=== PATIENT | female | born 1985 | race African-American/Black ===

== ENCOUNTER 2022-09-29 18:58 | Emergency (ER) | payer MEDICAID, SELFPAY ==
[2022-09-29 18:58] VITALS: BP 137/83; PULSE 91; RESP 18; TEMP 36.3; O2SAT 100; BMI 28.8
--- NOTE | 2022-09-29 19:21 | EDS_ITS ---
HPI HPI - URI History of Present Illness Chief Complaint: Cold Sx Narrative Narrative: 36-year-old female presenting with body aches, chills, headache, generalized malaise since . She reports that she was at a play and after that she developed the symptoms. She states that even though she was ill she was doing care today. She took Dimetapp to control her cough. She has not tried Tylenol and ibuprofen. Denies chest pain or shortness of breath. No nausea or vomiting. Patient on control not concern for . ROS ROS ED Constitutional Constitutional ED: Reports chills and fever(s); Denies sweats Eyes Eyes: Denies blurry vision or change in vision ENT ENT ED: Denies ear pain or sore throat Cardiovascular Cardiovascular: Denies chest pain, palpitations or racing heartbeat Respiratory/Chest Respiratory/Chest: Reports cough; Denies dyspnea or sputum Gastrointestinal Gastrointestinal: Denies abdominal pain, constipation, diarrhea, nausea or vomiting Genitourinary Genitourinary ED: Denies dysuria, hematuria or urinary frequency Musculoskeletal Musculoskeletal: Reports myalgias; Denies arthralgias or neck pain Integumentary Denies abscess, Abrasions or rash Neurologic Neurologic: Reports headache(s); Denies paresthesias or weakness Psychiatric Psychiatric: Denies anxiety, depression, suicidal ideation or suicidal thoughts Endocrine Endocrinology: Denies polydipsia or polyuria PFSH PFSH Home Medications norethindrone acetate 1 mg-ethinyl estradiol 20 mcg tablet (Jaylin) 1 tab PO DAILY 09/29/22 [History Last Taken Unknown] Allergy/AdvReac Type Severity Reaction Status Date / Time No Known Allergies Allergy Verified 09/29/22 19:01 Family History (Updated 01/26/19 @ 15:34 by Gabriela Pulliam) Other Diabetes Surgical History (Updated 09/29/22 @ 19:16 by Zaira Mcgowan) History of cholecystectomy History of hernia surgery Hx of endoscopy Social History (Updated 01/26/19 @ 16:29 by Cyrus ROSALES, PA) Smoking Status: Never smoker EXAM Physical Exam Const Vital Signs: 09/29/22 18:58 09/29/22 19:16 Temperature 97.4 F L Temperature Source Temporal Pulse Rate 91 Respiratory Rate 18 Respiratory Effort Normal Non-Labored Respiratory Pattern Normal Blood Pressure 137/83 H Blood Pressure Mean 101 Pulse Ox 100 Oxygen Delivery Method Room Air Positive well nourished General Appearance ED: NAD HEENT Reports moist mucous membranes normocephalic and atraumatic Eyes PERRL and EOMs intact bilaterally General Eye ED: Negative for pale conjunctiva or scleral icterus Resp normal respiratory effort and clear to auscultation bilaterally Cardio Rate: regular rate Rhythm: regular rhythm Neuro oriented x3 and CN's II-XII intact bilaterally Sensorium / Orientation: alert Motor Exam: strength 5/5 throughout Psych mental status grossly normal MDM MDM MDM Narrative Medical decision making narrative: 36-year-old female presenting with viral symptoms. She wants to be tested for COVID and influenza. Physical exam is unremarkable. Vital signs are stable and she is afebrile. She is 100% on room air. She was given 600 mg of ibuprofen for her body aches and headache. COVID and influenza testing are negative. Reevaluation patient is counseled on negative findings. I did add his rapid strep which is also negative. Patient counseled to alternate Tylenol and ibuprofen at home. She is to stay well-hydrated. Return precautions were discussed. Impression: 1. Viral syndrome Discharge Plan Triage Chief Complaint: Cold Sx ED Provider: Louis Agarwal Dx/Rx/DC Orders Instructions: ED Viral Syndrome (Adult) Prescriptions: No Action norethindrone ac-eth estradiol [Jaylin 08/03 ()] 1-20 mg-mcg tablet 1 tab PO DAILY Label Comments: TAKE 1 TABLET BY MOUTH EVERY DAY Primary Care Provider: Care Physician,No Primary Referrals: [facility] [Outside] - 3-5 Days Care Physician,No Primary [Primary Care Provider] - Disposition Disposition: Home, Self Care
[2022-09-29] MEDS: Ibuprofen 600 MG Tablet PO (19:49)
== END 2022-09-29 21:00 | disposition home or self-care (01) ==
PROVIDERS: Emergency Provider Student in an Organized Health Care Education/Training Program; Visit Provider Student in an Organized Health Care Education/Training Program
DX: B34.9 Viral infection, unspecified (principal); Z79.3 Long term (current) use of hormonal contraceptives
CPT/HCPCS: 87428; 87880; 99283

== ENCOUNTER 2023-07-29 11:19 | Emergency (ER) | payer MEDICAID, SELFPAY ==
[2023-07-29 11:20] VITALS: BP 141/93; PULSE 74; RESP 16; TEMP 35.7; O2SAT 98; BMI 29.5
--- NOTE | 2023-07-29 11:35 | CT_ITS ---
STUDY: CT ABDOMEN AND PELVIS WITH CONTRAST REASON FOR EXAM: Female, 37 years old. abd pain -- IV PO Contrast. Right lower quadrant pain. Nausea. Chills. RADIATION DOSAGE (If Supplied By Facility): CTDIvol = ( 16.83 ) mGy, DLP = ( 798.03 ) mGycm TECHNIQUE: Transaxial images were obtained from the dome of the diaphragm to the symphysis pubis with oral contrast. Oral and amp; IV Gastrografin and amp; 100mL Isovue-370 was administered. Sagittal and coronal images were reconstructed. Individualized dose optimization techniques were used for this CT. COMPARISON: None. FINDINGS: The visualized lung bases are unremarkable. The visualized portions of the heart are within normal limits. Normal liver. The patient is status post cholecystectomy. Normal spleen. There is a 2.4 cm x 1.3 cm cystic structure in the uncinate process of the pancreas. The common bile duct measures upper limits of normal. Normal bilateral adrenal glands. Normal right kidney. Normal left kidney. Normal visualized stomach. Normal small intestine. Moderate amount of fecal material is seen in the right hemicolon. Surgical material is also seen in the rectosigmoid colon. The appendix is visualized and appears normal. Normal abdominal aorta. Normal inferior vena cava. Normal retroperitoneum. Normal urinary bladder. Follicles are seen in both ovaries. There is a small umbilical hernia containing fat. Normal osseous structures. CT/Abdomen/Pelvis WITH Contrast IMPRESSION: Status post cholecystectomy. 2.4 cm x 1.3 cm cystic structure is seen in the uncinate process of the pancreas. The common bile duct measures upper limits of normal. Moderate amount of fecal material is seen in the right hemicolon as well as in the rectosigmoid colon. Electronically Signed: Jacob Haro MD at 13:42 EST ,
--- NOTE | 2023-07-29 11:37 | EX.ED.DYSGE1 ---
HPI History of Present Illness Chief Complaint: General Illness Informant: patient Onset/Context/Timing Onset: Days (4 days) Narrative Narrative: Patient presents with various abdominal symptoms since Saturday, 4 days ago. Patient states she has had some abdominal cramping with chills. She states that her stool is very light in color. She is also itching, especially at night. She woke this morning with redness on her face. She has tried taking Benadryl at night to help with the itching with no significant improvement. Patient is following with a GI doctor through [facility]. She reportedly has had elevated LFTs and has a cyst on her pancreas. She is scheduled to undergo upper endoscopy on August 26. She reports chills but no fever. She reports urinary frequency and an unusual color to her urine, but denies dysuria. PFSH PFSH Home Medications norethindrone acetate 1 mg-ethinyl estradiol 20 mcg tablet (Jaylin) 1 tab PO DAILY 09/29/22 [History Last Taken Unknown] hydroxyzine pamoate 25 mg capsule (Vistaril) 25 mg PO TID PRN itching #20 caps 07/29/23 [Rx Last Taken Unknown] ondansetron 4 mg disintegrating tablet 4 mg PO Q8H PRN PRN Nausea #10 tabs 07/29/23 [Rx Last Taken Unknown] Allergy/AdvReac Type Severity Reaction Status Date / Time No Known Allergies Allergy Verified 07/29/23 11:19 Family History Other Diabetes Surgical History History of cholecystectomy History of hernia surgery Hx of endoscopy Social History Smoking Status: Never smoker ROS ROS ED Constitutional Constitutional ED: Reports chills; Denies fever(s) Eyes Eyes: Denies change in vision or discharge from eye(s) ENT ENT ED: Denies discharge from eye(s), rhinorrhea or sore throat Cardiovascular Cardiovascular: Denies chest pain or palpitations Respiratory/Chest Respiratory/Chest: Reports cough; Denies dyspnea Gastrointestinal Gastrointestinal: Reports abdominal pain and nausea; Denies diarrhea or vomiting Genitourinary Genitourinary ED: Reports urinary frequency; Denies dysuria Musculoskeletal Musculoskeletal: Denies back pain or extremity pain Integumentary Reports rash; Denies Abrasions Neurologic Neurologic: Denies headache(s) or weakness Psychiatric Psychiatric: Denies anxiety or depression Allergic/Immunologic Allergic/Immunologic ED: Denies lip swelling or urticaria EXAM Physical Exam Const Vital Signs: 07/29/23 11:20 07/29/23 12:10 07/29/23 14:43 Temperature 96.3 F L Temperature Source Temporal Pulse Rate 74 75 Respiratory Rate 16 16 Respiratory Effort Normal Non-Labored Respiratory Pattern Normal Blood Pressure 141/93 H 116/73 Blood Pressure Mean 109 87 Pulse Ox 98 98 Oxygen Delivery Method Room Air Room Air Positive well nourished and well developed General Appearance ED: well developed HEENT Reports moist mucous membranes HEENT Narrative: Mild erythema over the maxilla bilaterally. Eyes EOMs intact bilaterally Chest Wall inspection of chest normal and palpation of chest normal Resp normal respiratory effort and clear to auscultation bilaterally Cardio regular rate and regular rhythm GI GI Narrative: Abdomen soft with mild tenderness in the right lower quadrant. No guarding or rebound. Extremity normal to inspection Neuro oriented x3 and no sensory deficits noted Motor Exam: strength 5/5 throughout Psych mental status grossly normal Skin no rashes or lesions noted MDM MDM MDM Narrative Medical decision making narrative: IV line established. Patient given Vistaril to help with itching. Labwork obtained to evaluate for leukocytosis, anemia, and electrolyte derangement. Urinalysis obtained to evaluate for infection/hematuria. CT scan of the abdomen pelvis obtained to evaluate for liver and pancreas abnormalities along with right lower quadrant pain etiology such as appendicitis or ovarian cyst. History & Record Review Discussion w/independent historian: Patient Lab Data Attestation: I reviewed the patient's lab results. Labs: Laboratory Results - last 24 hr 07/29/23 07/29/23 12:00 12:05 WBC 7.8 RBC 4.53 Hgb 12.6 Hct 39.4 MCV 87.0 MCH 27.8 MCHC 32.0 RDW Std Deviation 42.5 RDW Coeff of Amando 13.4 Plt Count 210 MPV 13.1 H Immature Gran % (Auto) 0.400 Neut % (Auto) 58.7 Lymph % (Auto) 28.9 [place] % (Auto) 10.8 H Eos % (Auto) 0.9 Baso % (Auto) 0.3 Absolute Neuts (auto) 4.6 Absolute Lymphs (auto) 2.25 Nucleated RBC % 0 Sodium 137 Potassium 3.7 Chloride 107 Carbon Dioxide 23.0 Anion Gap 7 BUN 10 Creatinine 0.75 Estim Creat Clear Calc 117.67 Est GFR (MDRD) Af Amer 113 Est GFR (MDRD) Non-Af 94 BUN/Creatinine Ratio 13.4 Glucose 87 Calcium 9.0 Total Bilirubin 4.80 H Direct Bilirubin 4.02 H AST 565 H ALT 1050 H Alkaline Phosphatase 153 H Total Protein 7.5 Albumin 3.5 Globulin 4.0 Lipase 17 Serum , Qual NEGATIVE Urine Color Yellow Urine Clarity Clear Urine pH 6.5 Ur Specific [place] 1.010 Urine Protein 15 H Urine Glucose (UA) Normal Urine Ketones Negative Urine Occult Blood Negative Urine Nitrite Negative Urine Bilirubin 1 H Urine Urobilinogen 1 H Ur Leukocyte Esterase Negative Urine RBC 0 SEEN Urine WBC 0 SEEN Ur Squamous Epith Cells 0-5 SEEN Urine Bacteria 1+ Urine Mucus 0 SEEN Radiography Diagnostic Testing: Clinical Impression(s) from Imaging Studies Abdomen/Pelvis CT 07/29/23 11:35 IMPRESSION: Status post cholecystectomy. 2.4 cm x 1.3 cm cystic structure is seen in the uncinate process of the pancreas. The common bile duct measures upper limits of normal. Moderate amount of fecal material is seen in the right hemicolon as well as in the rectosigmoid colon. Electronically Signed: Jacob Haro MD at 13:42 EST , Treatment and Re-Evaluation :: CBC was normal white count 7.8 with normal hemoglobin at 12.6. Unremarkable differential. Chemistry studies unremarkable. LFTs significant for total bili of 4.8, direct bili 4.02, AST of 565, ALT of 1050, alk phos of 153. Lipase is normal at 17. test is negative. Urinalysis reveals 1 of bilirubin and 1 urobilinogen. 1+ bacteria with no evidence of acute infection. CT scan of the abdomen pelvis reveals a 2.4 x 1.3 cm cystic structure in the uncinate process of the pancreas. The common bile duct measures upper limits of normal. I was able to review patient's prior records and [facility]. In June her alk phos was 181, AST was 70, and ALT was 135. I spoke with the patient's GI doctor, Dr. Mccormack at [facility]. He states he primarily sees the patient because of the cyst in the pancreas and feels that with these lab values she needs to be seen by hepatology. I spoke with Dr. Kaur, on-call for hepatology at [facility]. He states that if the patient is willing he can see the patient in the clinic tomorrow at 4 PM. This will save her transfer and wait for a bed. Patient is comfortable with this plan. Her lab work and test results from today are printed out for her to take along with her. Discharge Plan Triage Chief Complaint: General Illness ED Provider: Lori Moscoso Dx/Rx/DC Orders Clinical Impression: Elevated LFTs Prescriptions: New hydroxyzine pamoate [Vistaril] 25 mg capsule 25 mg PO TID PRN (Reason: itching) Qty: 20 0RF ondansetron 4 mg tablet,disintegrating 4 mg PO Q8H PRN PRN (Reason: Nausea) Qty: 10 0RF No Action norethindrone ac-eth estradiol [Jaylin 08/03 ()] 1-20 mg-mcg tablet 1 tab PO DAILY Patient Comments: TAKE 1 TABLET BY MOUTH EVERY DAY Primary Care Provider: Doug Ingram Referrals: NOT,DEFINED [Non-Staff] - Activity Restrictions/Additional Instructions: Follow-up with Dr. Farrell at [facility] tomorrow at 4 PM. Your test results from today have been printed for you to take along. Disposition Disposition: Home, Self Care Capacity Legal Residential Electrician Reflex Medical hold order details:: IF a medical hold is selected below, a suggested order for a MEDICAL HOLD will reflex upon signing the document. Next of kin: [place] law dictates a PRIORITY LIST for identifying legal decision-maker/legal next of kin in the following order (LNOK): 1st: The patient?s legal guardian, if any 2nd: The patient's spouse (if status is questionable, consult Risk Management) 3rd: The patient?s adult child(irene) (majority, if multiple children) 4th: The patient?s parents 5th: The patient?s adult siblings (majority, if multiple children siblings)
[2023-07-29] MEDS: hydrOXYzine PAM 25 MG Capsule PO (11:58)
[2023-07-29] MEDS: 0.9% Normal Saline (1000mL) 1,000 ML 150 ML IV (11:58)
[2023-07-29 12:17] LABS: Mucous, Urine 0 SEEN /hpf (<or=2+); Red Blood Cells-Urine 0 SEEN /hpf (0-5); White Blood Cells 0 SEEN /hpf (0-5)
[2023-07-29 12:26] LABS: Absolute Lymphocyte Count 2.25 X10^3/uL (0.83-4.51); Absolute Neutrophil Count 4.6 X10^3/uL (2.0-7.7); Basophil# 0.02 X10^3/uL; Basophil% 0.3 % (0-1); Eosinophil# 0.07 X10^3/uL; Eosinophils% 0.9 % (0-5); Hematocrit 39.4 % (37-47); Hemoglobin 12.6 g/dL (12.0-15.0); Lymphocyte # 2.25 X10^3/ul (0.83-4.51); Lymphocyte % 28.9 % (19-41); Mean Corpuscular Hgb 27.8 pg (27.0-32.0); Mean Platelet Vol. 13.1 fl (6.2-12.0); Monocyte# 0.84 X10^3/uL; Monocyte% 10.8 % (0-10); NRBC Flagged by Analyzer 0 % (0-5); Neutrophil # 4.57 X10^3/uL (2.7-7.7); Neutrophil % 58.7 % (47-70); Platelet Count 210 K/mm3 (150-450); RBC Distribution Width CV 13.4 % (11.6-14.6); RBC Distribution Width SD 42.5 fl (35.1-43.9); Red Blood Count 4.53 M/mm3 (4.2-5.4); White Blood Count 7.8 K/mm3 (4.4-11.0)
[2023-07-29 12:26] LABS: Color, Urine Yellow (Yellow); Glucose, Dipstick Normal (Normal); Ketone-Dipstick Negative (Negative); Leukocyte Esterase-Dipstick Negative /ul (Negative); Nitrite-Dipstick Negative (Negative); Occult Blood-Urine Negative /ul (Negative); Protein-Dipstick 15 mg/dl (Negative); Urine Clarity Clear (Clear); Urine Urobilinogen 1 mg/dl (Normal); Urine pH 6.5 (5.0 - 8.0)
[2023-07-29 12:32] LABS: Urine Bilirubin Dipstick 1 mg/dL (Negative)
--- OUTSIDE RECORDS SUMMARY | 2023-07-29 12:33 | XMS RPT_ITS | CCD ---
Author Name Unknown Address [id number] [place] [address] Organization [facility] Care Team Providers Care Package Reinspector Name Role Phone Unavailable Primary Care Provider Unavailabl e Pcp, No Unavailable Unavailable Korina Velazquez MD Primary Care Provider [phone] PHYSICIAN, NONE Primary Care Physician Unavailab le Pcp, No Unavailable Unavailable Korina Velazquez MD Primary Care Provider SURINDER CLAYTON, DR DANIKA NOEL Attending Unav ailable PHYSICIAN, NONE Primary Care Unavailable SUBHA MCCARTY MD Attending Unavailable PHYSICIAN, NONE Primary Care Unavailable SUBHA MCCARTY MD Attending Unavailable PHYSICIAN, NONE Primary Care Unavailable SUBHA MCCARTY MD Attending Unavailable PHYSICIAN, NONE Primary Care Unavailable DR DANIKA CADENA MD, JR Attending Unav ailable PHYSICIAN, NONE Primary Care Unavailable Pcp ENDODONTIST, No Unavailable Unavailable Nolvia Mccormack Referring Unavailable KORINA VELAZQUEZ Primary Care Unavailable KORINA VELAZQUEZ Primary Care Unavailable CHELLY CHACKO Referring Unavailab KORINA Marr Primary Care Unavailable KORINA VELAZQUEZ Primary Care Unavailable KORINA VELAZQUEZ Attending Unavailable ARABELLA LAGUNA Attending Unavailable KORINA VELAZQUEZ Primary Care Unavailable CHELLY CHACKO Attending Unavailab KORINA Marr Primary Care Unavailable CHELLY CHACKO Referring Unavailab le KORINA VELAZQUEZ Primary Care Unavailable CHELLY CHACKO Referring Unavailab KORINA Marr Primary Care Unavailable CHELLY CHACKO Referring Unavailab KORINA Marr Primary Care Unavailable KORINA VELAZQUEZ Primary Care Unavailable KORINA VELAZQUEZ Primary Care Unavailable TOOTIE ROMERO Attending Unavailable KORINA VELAZQUEZ Primary Care Unavailable CHELLY CHACKO Attending Unavailab KORINA Marr Primary Care Unavailable FILIKORINA RASMUSSEN Primary Care Unavailable CHELLY CHACKO Referring Unavailab farzad FILIKORINA RASMUSSEN Primary Care Unavailable FILIKORINA RASMUSSEN Primary Care Unavailable CHELLY CHACKO Referring Unavailab KORINA Marr Primary Care Unavailable KORINA VELAZQUEZ Primary Care Unavailable CHELLY CHACKO Referring Unavailab KORINA Marr Primary Care Unavailable CHELLY CHACKO Attending Unavailab CHELLY Nation Referring Unavailab KORINA Marr Primary Care Unavailable ZARA RG Referring Unavailable FILIKORINA RASMUSSEN Primary Care Unavailable FILIKORINA RASMUSSEN Primary Care Unavailable CHELLY CHACKO Referring Unavailab Nolvia Wallace Attending Unavailable KORINA VELAZQUEZ Primary Care Unavailable Allergies Allergy Classification Reported Allergen(s) Allergy Type Date of Onset Reaction(s) Facility (20 sources) Azithromycin; Translations: [AZITHROMYCIN] Drug Allergy 3 Hives [facility] (20 sources) Levonorgestrel; Translations: [LEVONORGESTREL ] Drug Allergy 3 Other: See Comments [facility] Work Phone: (20 sources) lactose intolerant [Other] Propensity to adverse reactions 5 Diarrhea [facility] Work Phone: (20 sources) Amoxicillin; Translations: [amoxicillin] Drug Allergy [address] [facility] (1 source) OTHER; Translations: [OTHER] Propensity to adverse reactions (disorder) 5 [facility] Repository Medications Current Medications Medication Drug Class(es) Dates Sig (Normalized) Sig (Original) acetaminophen 325 mg oral tablet (2 sources) Start: 09-05-2019 acetaminophen (TYLENOL) tablet 650 mg Completed/Discontinued Medications Medication Drug Class(es) Dates Sig (Normalized) Sig (Original) [id number] 200 actuat albuterol 0.09 mg/actuat metered dose inhaler (16 sources) beta2-Adrenergic Agonist Start: 03-27-2023 End: 04-26-2023 take 2 puff(s) by inhalation every four hours as needed for wheezing albuterol HFA (VENTOLIN HFA) 90 mcg/actuation inhaler Indications: Bronchitis Inhale 2 Puffs as instructed every 4 hours as needed for wheezing/shortnes s of breath. 1 Each 0 03/27/2023 Active Problems Active Problems Problem Classification Problem Date Documented Date Episodic/Chronic Abdominal hernia (1 source) Right inguinal hernia 06-11-2022 Episodic Abdominal pain (20 sources) Epigastric pain; Translations: [Epigastric pain] Onset: 07-13-2005 07-13-2005 Episodic Allergic reactions (2 sources) Inflammatory dermatosis; Translations: [Dermatitis, unspecified] Episodic Conditions associated with dizziness or vertigo (1 source) Vertigo; Translations: [Dizziness and giddiness] Episodic Disorders of teeth and jaw (1 source) Temporomandibular joint disorder; Translations: [Unspecified temporomandibular joint disorder, unspecified side] Episodic Esophageal disorders (20 sources) Gastroesophageal reflux disease; Translations: [Gastro-esophageal reflux disease without esophagitis] Onset: 08-16-2005 08-16-2005 Chronic Fever of unknown origin (1 source) Fever; Translations: [Fever, unspecified fever cause] Episodic Headache; including migraine (1 source) Tension-type headache; Translations: [Tension-type headache, unspecified, not intractable] Chronic Inflammation; infection of eye (except that caused by tuberculosis or sexually transmitteddisease) (1 source) Bilateral conjunctivitis; Translations: [Unspecified conjunctivitis] Episodic Influenza (1 source) Influenza due to Influenza virus, type B; Translations: [Influenza B] Episodic Mood disorders (1 source) Seasonal affective disorder; Translations: [Other recurrent depressive disorders] Chronic Mycoses (1 source) Candidiasis of vagina; Translations: [Vaginal yeast infection] 03-27-2023 Episodic Other connective tissue disease (1 source) Pain in bilateral legs; Translations: [Pain in right leg] 05-27-2023 Episodic Other connective tissue disease (1 source) Pain in both feet; Translations: [Pain in right foot] 05-27-2023 Episodic Other connective tissue disease (1 source) Pain in right leg; Translations: [Pain in both lower extremities] Onset: 05-27-2023 Episodic Other connective tissue disease (1 source) Pain in left leg; Translations: [Pain in both lower extremities] Onset: 05-27-2023 Episodic Other connective tissue disease (1 source) Pain in right foot; Translations: [Foot pain, bilateral] Onset: 05-27-2023 Episodic Other connective tissue disease (1 source) Pain in left foot; Translations: [Foot pain, bilateral] Onset: 05-27-2023 Episodic Other female genital disorders (1 source) Vaginal irritation; Translations: [Other specified noninflammatory disorders of vagina] Episodic Other female genital disorders (1 source) Burning sensation of vagina; Translations: [Unspecified condition associated with female genital organs and menstrual cycle] Episodic Other female genital disorders (2 sources) Other specified noninflammatory disorders of vagina; Translations: [Other specified noninflammatory disorders of vagina] Onset: 08-22-2022 Episodic Other liver diseases (1 source) Lesion of liver; Translations: [Liver disease, unspecified] 04-16-2023 Chronic Other liver diseases (1 source) Liver disease, unspecified; Translations: [Liver lesion] Onset: 04-16-2023 Chronic Other liver diseases (4 sources) Alkaline phosphatase raised; Translations: [Abnormal levels of other serum enzymes] 04-05-2023 Episodic Other liver diseases (1 source) Abnormal levels of other serum enzymes; Translations: [Elevated alkaline phosphatase level] Onset: 06-27-2023 Episodic Other lower respiratory disease (1 source) Cough; Translations: [Acute cough] 03-22-2023 Episodic Other nervous system disorders (1 source) H/O: ear disorder; Translations: [Personal history of other diseases of the nervous system and sense organs] Episodic Other nutritional; endocrine; and metabolic disorders (20 sources) Intolerance to lactose; Translations: [Lactose intolerance, unspecified] Onset: 09-10-2011 09-10-2011 Chronic Other screening for suspected conditions (not mental disorders or infectious disease) (5 sources) Other specified abnormal findings of blood chemistry; Translations: [Other abnormal blood chemistry] Onset: 06-27-2023 04-12-2023 Episodic Other upper respiratory disease (1 source) Congestion of nasal sinus; Translations: [Nasal congestion] 03-22-2023 Episodic Pancreatic disorders (not diabetes) (6 sources) Cyst of pancreas; Translations: [Cyst of pancreas] Onset: 06-27-2023 04-05-2023 Episodic Residual codes; unclassified (1 source) Disturbance in sleep behavior; Translations: [Sleep disorder, unspecified] Episodic Substance-related disorders (20 sources) History of drug abuse; Translations: [Other psychoactive substance abuse, in remission] Onset: 09-10-2011 09-10-2011 Chronic Unclassified (1 source) Vaginal yeast infection; Translations: [Vaginal yeast infection] Onset: 03-27-2023 Unclassified (1 source) Acute cough; Translations: [Acute cough] Onset: 07-13-2022 Past or Other Problems Problem Classification Problem Date Documented Da te Episodic/Chronic Chronic obstructive pulmonary disease and bronchiectasis (2 sources) Bronchitis; Translations: [Bronchitis, not specified as acute or chronic] Onset: 03-27-2023 03-27-2023 Episodic Inflammatory diseases of female pelvic organs (4 sources) Acute vaginitis; Translations: [Subacute and chronic vaginitis] Onset: 04-04-2022 Episodic Other upper respiratory infections (4 sources) Sore throat symptom; Translations: [Acute pharyngitis, unspecified] Onset: 11-14-2022 Episodic Otitis media and related conditions (2 sources) Acute right otitis media; Translations: [Otitis media, unspecified, right ear] Onset: 11-14-2022 Episodic Results Test Name Value Interpretation Reference Range Facil ity Vital Signs Date Time Vital Sign Value Performing Clinician Faci lity 06-12-2023 08:49-0500 Body weight 84.82 kg Nolvia Mccormack MD Work Phone: [facility] 06-12-2023 08:49-0500 Diastolic blood pressure 82 mm[Hg] Nolvia Mccormack MD Work Phone: [facility] 06-12-2023 08:49-0500 Heart rate 105 /min Nolvia Mccormack MD Work Phone: [facility] 06-12-2023 08:49-0500 SaO2% (BldA) [Mass fraction] 99 % Nolvia Mccormack MD Work Phone: [facility] 06-12-2023 08:49-0500 Systolic blood pressure 126 mm[Hg] Nolvia Mccormack MD Work Phone: [facility] 05-27-2023 09:00-0500 Body weight 84.1 kg Chelly Chacko MD Work Phone: [facility] 05-27-2023 09:00-0500 Diastolic blood pressure 64 mm[Hg] Chelly Chacko MD Work Phone: [facility] 05-27-2023 09:00-0500 Heart rate 87 /min Chelly Chacko MD Work Phone: [facility] 05-27-2023 09:00-0500 Respiratory rate 16 /min Chelly Chacko MD Work Phone: [facility] 05-27-2023 09:00-0500 SaO2% (BldA) [Mass fraction] 97 % Chelly Chacko MD Work Phone: [facility] 05-27-2023 09:00-0500 Systolic blood pressure 104 mm[Hg] Chelly Chacko MD Work Phone: [facility] 04-16-2023 08:58-0400 Body weight 82.01 kg Chelly Chacko MD Work Phone: [facility] 04-16-2023 08:58-0400 Diastolic blood pressure 72 mm[Hg] Chelly Chacko MD Work Phone: [facility] 04-16-2023 08:58-0400 Heart rate 93 /min Chelly Chacko MD Work Phone: [facility] 04-16-2023 08:58-0400 Respiratory rate 16 /min Chelly Chacko MD Work Phone: [facility] 04-16-2023 08:58-0400 SaO2% (BldA) [Mass fraction] 97 % Chelly Chacko MD Work Phone: [facility] 04-16-2023 08:58-0400 Systolic blood pressure 114 mm[Hg] Chelly Chacko MD Work Phone: [facility] 04-03-2023 08:58-0400 Body height 170.2 cm Chelly Chacko MD Work Phone: [facility] 04-03-2023 08:58-0400 Body weight 81.19 kg Chelly Chacko MD Work Phone: [facility] 04-03-2023 08:58-0400 Diastolic blood pressure 82 mm[Hg] Chelly Chacko MD Work Phone: [facility] 04-03-2023 08:58-0400 Heart rate 80 /min Chelly Chacko MD Work Phone: [facility] 04-03-2023 08:58-0400 Respiratory rate 16 /min Chelly Chacko MD Work Phone: [facility] 04-03-2023 08:58-0400 Systolic blood pressure 120 mm[Hg] Chelly Chacko MD Work Phone: [facility] 03-27-2023 08:13-0400 Body weight 82.1 kg Tootiealexx Purvishof ENDODONTIST.RESEARCH SOFTWARE ENGINEER Work Phone: [facility] 03-27-2023 08:13-0400 Diastolic blood pressure 82 mm[Hg] Tootie Tannhof ENDODONTIST.RESEARCH SOFTWARE ENGINEER Work Phone: [facility] 03-27-2023 08:13-0400 Heart rate 85 /min Tootie Tannhof ENDODONTIST.RESEARCH SOFTWARE ENGINEER Work Phone: [facility] 03-27-2023 08:13-0400 Respiratory rate 16 /min Tootie Tannhof ENDODONTIST.RESEARCH SOFTWARE ENGINEER Work Phone: [facility] 03-27-2023 08:13-0400 SaO2% (BldA) [Mass fraction] 98 % Tootie Tannhof ENDODONTIST.RESEARCH SOFTWARE ENGINEER Work Phone: [facility] 03-27-2023 08:13-0400 Systolic blood pressure 122 mm[Hg] Tootie Tannhof ENDODONTIST.RESEARCH SOFTWARE ENGINEER Work Phone: [facility] 03-22-2023 09:40-0400 Body temperature 97 [degF] Isabel Irby APRN.RESEARCH SOFTWARE ENGINEER Work Phone: [facility] 03-22-2023 09:40-0400 Body weight 80.92 kg Isabelleana Irby APRN.RESEARCH SOFTWARE ENGINEER Work Phone: [facility] 03-22-2023 09:40-0400 Diastolic blood pressure 87 mm[Hg] Isabel Irby APRN.RESEARCH SOFTWARE ENGINEER Work Phone: [facility] 03-22-2023 09:40-0400 Heart rate 98 /min Isabel Irby APRN.RESEARCH SOFTWARE ENGINEER Work Phone: [facility] 03-22-2023 09:40-0400 Respiratory rate 18 /min Isabel Iryb APRN.RESEARCH SOFTWARE ENGINEER Work Phone: [facility] 03-22-2023 09:40-0400 SaO2% (BldA) [Mass fraction] 96 % Isabel Irby APRN.RESEARCH SOFTWARE ENGINEER Work Phone: [facility] 03-22-2023 09:40-0400 Systolic blood pressure 132 mm[Hg] Isabel Irby APRN.RESEARCH SOFTWARE ENGINEER Work Phone: [facility] 12-27-2022 08:08-0400 Body height 171.5 cm Korina Velazquez MD Work Phone: [facility] 12-27-2022 08:08-0400 Body weight 80.38 kg Korina Velazquez MD Work Phone: [facility] 12-27-2022 08:08-0400 Diastolic blood pressure 74 mm[Hg] Korina Velazquez MD Work Phone: [facility] 12-27-2022 08:08-0400 Heart rate 82 /min Korina Velazquez MD Work Phone: [facility] 12-27-2022 08:08-0400 Respiratory rate 16 /min Korina Velazquez MD Work Phone: [facility] 12-27-2022 08:08-0400 Systolic blood pressure 118 mm[Hg] Korina Velazquez MD Work Phone: [facility] 12-19-2022 12:23-0400 Body temperature 98.8 [degF] Alyx Conde ENDODONTIST.RESEARCH SOFTWARE ENGINEER Work Phone: [facility] 12-19-2022 12:23-0400 Body weight 83.92 kg Alyx Conde ENDODONTIST.RESEARCH SOFTWARE ENGINEER Work Phone: [facility] 12-19-2022 12:23-0400 Diastolic blood pressure 90 mm[Hg] Alyx Conde ENDODONTIST.RESEARCH SOFTWARE ENGINEER Work Phone: [facility] 12-19-2022 12:23-0400 Heart rate 78 /min Alyx Conde ENDODONTIST.RESEARCH SOFTWARE ENGINEER Work Phone: [facility] 12-19-2022 12:23-0400 Respiratory rate 21 /min Alyx Conde ENDODONTIST.RESEARCH SOFTWARE ENGINEER Work Phone: [facility] 12-19-2022 12:23-0400 SaO2% (BldA) [Mass fraction] 98 % Alyx Conde ENDODONTIST.RESEARCH SOFTWARE ENGINEER Work Phone: [facility] 12-19-2022 12:23-0400 Systolic blood pressure 120 mm[Hg] Alyx Conde ENDODONTIST.RESEARCH SOFTWARE ENGINEER Work Phone: [facility] 08-03-2022 09:15-0500 Body temperature 98.1 [degF] Krislyn Aberegg PA Work Phone: [facility] 08-03-2022 09:15-0500 Body weight 79.11 kg Krislyn Aberegg PA Work Phone: [facility] 08-03-2022 09:15-0500 Diastolic blood pressure 66 mm[Hg] Krislyn Aberegg PA Work Phone: [facility] 08-03-2022 09:15-0500 Heart rate 92 /min Krislyn Aberegg PA Work Phone: [facility] 08-03-2022 09:15-0500 Respiratory rate 16 /min Krislyn Aberegg PA Work Phone: [facility] 08-03-2022 09:15-0500 SaO2% (BldA) [Mass fraction] 97 % Lissette Lopez PA Work Phone: [facility] 08-03-2022 09:15-0500 Systolic blood pressure 122 mm[Hg] Lissette Lopez PA Work Phone: [facility] 06-21-2022 09:19-[address] DANIKA CADENA MD [facility] 06-21-2022 09:19-0500 Body height 170.[address] DANIKA CADENA MD [facility] 06-21-2022 09:19-0500 Body weight 78.[address] DANIKA CADENA MD [facility] 06-21-2022 09:19-0500 Body weight 27.06 kg/m2 DR DANIKA CADENA MD [facility] 06-21-2022 09:19-0500 Diastolic Blood Pressure Non-Invasive [address] DANIKA CADENA MD [facility] 06-21-2022 09:19-0500 Heart rate 87 /min DR DANIKA CADENA MD [facility] 06-21-2022 09:19-0500 Respiratory rate 20 /min DR DANIKA CADENA MD [facility] 06-21-2022 09:19-0500 Systolic Blood Pressure Non-Invasive [address] DANIKA CADENA MD [facility] 02-08-2022 14:07-0400 Body temperature 98.49 [degF] Ketty Hopson APRN.RESEARCH SOFTWARE ENGINEER Work Phone: [facility] 02-08-2022 14:07-0400 Body weight 78.74 kg Ketty Praisler-Wood ENDODONTIST.RESEARCH SOFTWARE ENGINEER Work Phone: [facility] 02-08-2022 14:07-0400 Diastolic blood pressure 68 mm[Hg] Ketty Praisler-Wood ENDODONTIST.RESEARCH SOFTWARE ENGINEER Work Phone: [facility] 02-08-2022 14:07-0400 Heart rate 89 /min Ketty Praisler-Wood ENDODONTIST.RESEARCH SOFTWARE ENGINEER Work Phone: [facility] 02-08-2022 14:07-0400 Respiratory rate 16 /min Ketty Praisler-Wood ENDODONTIST.RESEARCH SOFTWARE ENGINEER Work Phone: [facility] 02-08-2022 14:07-0400 SaO2% (BldA) [Mass fraction] 97 % Ketty Praisler-Wood ENDODONTIST.RESEARCH SOFTWARE ENGINEER Work Phone: [facility] 02-08-2022 14:07-0400 Systolic blood pressure 120 mm[Hg] Ketty Praisler-Wood ENDODONTIST.RESEARCH SOFTWARE ENGINEER Work Phone: [facility] 02-02-2022 10:49-0400 Body temperature 97.81 [degF] Isabel Irby ENDODONTIST.RESEARCH SOFTWARE ENGINEER Work Phone: [facility] 02-02-2022 10:49-0400 Body weight 79.29 kg Isabel Irby APRN.RESEARCH SOFTWARE ENGINEER Work Phone: [facility] 02-02-2022 10:49-0400 Diastolic blood pressure 78 mm[Hg] Isabel Irby ENDODONTIST.RESEARCH SOFTWARE ENGINEER Work Phone: [facility] 02-02-2022 10:49-0400 Heart rate 110 /min Isabel Irby ENDODONTIST.RESEARCH SOFTWARE ENGINEER Work Phone: [facility] 02-02-2022 10:49-0400 Respiratory rate 20 /min Isabel Irby ENDODONTIST.RESEARCH SOFTWARE ENGINEER Work Phone: [facility] 02-02-2022 10:49-0400 SaO2% (BldA) [Mass fraction] 98 % Isabel Irby ENDODONTIST.RESEARCH SOFTWARE ENGINEER Work Phone: [facility] 02-02-2022 10:49-0400 Systolic blood pressure 124 mm[Hg] Isabel Irby ENDODONTIST.RESEARCH SOFTWARE ENGINEER Work Phone: [facility] 01-31-2022 12:54-0400 Body weight 78.02 kg Sarah Gomez ENDODONTIST.RESEARCH SOFTWARE ENGINEER Work Phone: [facility] 01-31-2022 12:54-0400 Diastolic blood pressure 72 mm[Hg] Sarah Macedohrie ENDODONTIST.RESEARCH SOFTWARE ENGINEER Work Phone: [facility] 01-31-2022 12:54-0400 Systolic blood pressure 110 mm[Hg] Sarah Macedohrie ENDODONTIST.RESEARCH SOFTWARE ENGINEER Work Phone: [facility] 01-22-2022 14:36-0400 Body weight 79.83 kg Alayna Cedaredge ENDODONTIST.RESEARCH SOFTWARE ENGINEER Work Phone: [facility] 01-22-2022 14:36-0400 Diastolic blood pressure 70 mm[Hg] Alayna Cedaredge ENDODONTIST.RESEARCH SOFTWARE ENGINEER Work Phone: [facility] 01-22-2022 14:36-0400 Systolic blood pressure 108 mm[Hg] Alayna Cedaredge ENDODONTIST.RESEARCH SOFTWARE ENGINEER Work Phone: [facility] 09-05-2019 23:31-0500 BP Diastolic 75 mm[Hg] [facility] [place] [facility]-2019 23:31-0500 BP Systolic 113 mm[Hg] Fidelina [facility] 09-05-2019 23:31-0500 Pulse (Heart Rate) 84 /min [facility], [place] 09-05-2019 22:31-0500 Pulse Oximetry 98 % [facility], [place] 09-05-2019 21:22-0500 Body Temperature 99.3 [degF] [facility], [place] 09-05-2019 19:53-0500 BMI (Body Mass Index) 18.64 kg/m2 [facility] 09-05-2019 19:53-0500 Body weight 53.98 kg Fidelina Loya [facility], [place] 09-05-2019 19:53-0500 Height 170.2 cm Fidelina Loya [facility] [place] 09-05-2019 19:53-0500 Respiratory Rate 20 /min Fidelina Loya [facility], [place] Encounters Encounter Date Encounter Type Care Provider Facility Start: 07-01-2023 End: 07-01-2023 [facility] Facility:[facility] Start: 06-27-2023 End: 06-28-2023 Orders Only Nolvia Mccormack MD Work Phone: Gastroenterology Procedures Date Procedure Procedure Detail Performing Clinician Start: 04-09-2023 3d rendering w/interp&postproc diff work station Chelly Chacko MD Work Phone: Start: 04-09-2023 Mri abdomen w/o & w/ contrast material Chelly Chacko MD Work Phone: Start: 04-05-2023 Ct abdomen & pelvis w/contrast material Chelly Chacko MD Work Phone: Start: 04-03-2023 End: 04-03-2023 Urnls dip stick/tablet rgnt auto w/o microscopy Chelly Chacko MD Work Phone: Start: 03-22-2023 STREP A MOLECULAR (POC) Isabel Irby APRN.RESEARCH SOFTWARE ENGINEER Work Phone: Start: 02-02-2022 STREP A MOLECULAR (POC) Isabel Irby ENDODONTIST.RESEARCH SOFTWARE ENGINEER Work Phone: Start: 01-09-2021 Adult depression scr eening assessment Chandu Black ENDODONTIST.RESEARCH SOFTWARE ENGINEER Work Phone: Start: 09-05-2019 Blood count complete auto&auto difrntl wbc Fidelinaserge Loya Start: 09-05-2019 Comprehensive metabo lic panel Fidelinaserge Loya Start: 09-05-2019 Gonadotropin chorion ic qualitative Fidelinaserge Loya Start: 09-05-2019 Iaadiadoo influenza Vivienne serge Loya Start: 09-05-2019 Urnls dip stick/tabl et rgnt auto w/o microscopy Fidelina Vincenzo Start: 09-05-2019 Radiologic exam ches t single view Fidelina Vincenzo Start: 07-15-2003 Davion MCCARTY MD Plan of Treatment Date Care Activity Detail Author Start: 12-28-2023 COVID-19 VACCINE (#1) COVID-19 VACCI NE (#1) [facility] Payers Date Payer Category Payer Unknown [id number] 2020 Medicaid [employer] [facility] [place] [id number] 2020-Present [phone] [address] [place] [address] Medicaid [id number] 2020 Medicaid [id number] 2020 Unknown [id number] 1987 Unknown [id number] 1987 Unknown [id number] 1987 Unknown [id number] 1987 Unknown [id number] 1987 Unknown [id number] Social History Date Type Detail Facility Start: 09-05-2019 Tobacco smoking status [facility] Current some day smoker [facility] [facility] Start: 09-[facility]-2019 End: 06-12-2023 Alcohol intake Ex-drinker (finding) [facility] Start: 09-05-2019 [facility] 1985 Sex Assigned At Not on file [facility], [place] Start: 01-27-2019 End: 12-27-2022 Tobacco smoking status NHIS Smokes tobacco daily [facility] Work Phone: End: 12-13-2022 History of tobacco use Cigarette Smoker [facility] Work Phone: Start: 01-27-2019 End: 11-14-2022 Cigarettes smoked current (pack per day) - Reported 0.3 [facility] Work Phone: Start: 01-27-2019 End: 03-27-2023 Tobacco use and exposure Smokeless tobacco non-user [facility] Work Phone: Start: 01-09-2021 History SDOH Alcohol Frequency 1 [facility] Start: 01-09-2021 History SDOH Alcohol Std Drinks 98 [facility] Start: 05-02-2020 History SDOH Alcohol Comment none [facility] Start: 01-09-2021 History SDOH Social Connections Phone 5 [facility] Start: 01-09-2021 History SDOH Social Connections Get Together 3 [facility] Start: 01-09-2021 History SDOH Social Connections Meetings 2 [facility] Start: 01-09-2021 Education 21 [facility] Start: 09-29-2020 Tobacco Comment 5-10 cigarettes daily [facility] Start: 12-17-2021 End: 02-08-2022 Exposure to SARS-CoV-2 (event) Not sure [facility] Work Phone: Start: 04-04-2022 End: 06-21-2022 Tobacco smoking status Light tobacco smoker (finding) [facility] Sex Assigned At Sex [facility] Start: 08-03-2022 End: 03-27-2023 Tobacco smoking status NHIS Ex-smoker [facility] End: 12-13-2022 History of tobacco use Current smoker [facility] Start: 12-27-2022 Tobacco Comment Currently on day 2 of not smoking. [facility] Start: 11-14-2022 End: 12-27-2022 Tobacco use panel [facility] Work Phone: Adult Depression Screening Assessment 0 [facility] Work Phone: Do you belong to any clubs or organizations such as christianity groups, unions, fraternal or athletic groups, or school groups? Yes [facility] Are you now , , , , never or living with a partner? Refused [facility] How often to you hav e a drink containing alcohol? Never [facility] Do you feel stress - tense, restless, nervous, or anxious, or unable to sleep at night because your mind is troubled all the time - these days [OSQ] To some extent [facility] (I/We) worried henrique er (my/our) food would run out before (I/we) got money to buy more. Never true [facility] In the past 12 month s, was there a time when you were not able to pay the mortgage or rent on time? No [facility] Are you now , , , , never or living with a partner? Living with partner [facility] How hard is it for y ou to pay for the very basics like food, housing, medical care, and heating Not very hard [facility] Do you feel stress - tense, restless, nervous, or anxious, or unable to sleep at night because your mind is troubled all the time - these days [OSQ] Only a little [facility] Functional Status Date Assessment Result Facility 06-21-2022 Functional Status Sensory Deficits None A [facility] Clinical Notes 12-31-2011 to 07-01-2023 Nolvia Mccormack MD - 06/12/2023 9:00 AM Chelly Dumont MD - 05/27/2023 9:08 AM ESTTeleabdoulaye Kinney - Denilson Long RN - 04/23/2023 1:31 PM EDTPatient Instructions Note Date & Type Note Facility 07-01-2023 Note HNO ID: [id number] Author: Ketty Hopson APRN.RESEARCH SOFTWARE ENGINEER Service: ? Author Type: Nurse Practitioner Type: Progress Notes Filed: 07/01/2023 1:54 PM Note Text: Subjective Headache Pertinent negatives include no fever. Anastasia Garzon is a 37 year old female who presents with one day of headache, sore throat, and ear pain. Denies nasal congestion or cough No fever Has taken cough drops and benadryl at home No known sick contacts. Review of Systems Constitutional: Negative for chills and fever. HENT: Positive for ear pain and sore throat. Negative for congestion. Respiratory: Negative for cough. Cardiovascular: Negative. Musculoskeletal: Negative for myalgias. Neurological: Positive for headaches. Negative for dizziness. BP 112/80 Pulse 92 Temp 36.2 ?C (97.2 ?F) Resp 21 Wt 86.3 kg (190 lb 3.2 oz) LMP 05/09/2023 (Approximate) SpO2 99% BMI 29.79 kg/m? PAST MEDICAL HISTORY Diagnosis Date Abdominal pain, epigastric Reflux Unspecified disease of pancreas 2004 Pancreatitis PAST SURGICAL HISTORY Procedure Laterality Date EGD TRANSORAL BIOPSY SINGLE/MULTIPLE 08/16/2005 LAPAROSCOPY SURG CHOLECYSTECTOMY 09/22/2004 Cholecystectomy, lap PAST SURGICAL HISTORY OF Right 06/2022 Hernia surgery, [facility] ALLERGIES Amoxicillin, Lactose Intolerant [Other], Mirena [Levonorgestrel], and Zithromax [Azithromycin] MEDICATIONS albuterol HFA (VENTOLIN HFA) 90 mcg/actuation inhaler Inhale 2 Puffs as instructed every 4 hours as needed for wheezing/shortness of breath. loratadine (CLARITIN) 10 mg tablet Take 1 tablet by mouth once daily. SARA 08/03, 21, 1-20 mg-mcg per tablet Take 1 tablet by mouth once daily. CHONDROITIN SULFATE-TURMERIC ORAL Take 1 capsule by mouth as needed. (Patient not taking: Reported on 07/01/2023) varenicline (CHANTIX) 1 mg tablet Take 1 tablet by mouth twice daily. varenicline (CHANTIX) 1 mg tablet Take 0.5 tablets by mouth once daily for 3 days, THEN 0.5 tablets twice daily for 4 days, THEN 1 tablet twice daily for 23 days. FAMILY HISTORY Problem Relation Age of Onset Hypertension Mother Heart Father GI Sister Half-sister No Known Problems Sister No Known Problems Sister No Known Problems Sister No Known Problems Brother No Known Problems Brother Diabetes Maternal Grandmother Hypertension Maternal Grandmother Diabetes Paternal Grandmother unsure if she has Social History Tobacco Use Smoking status: Former Packs/day: .3 Types: Cigarettes Quit date: 12/13/2022 Years since quittin.5 Smokeless tobacco: Never Tobacco comments: Currently on day 2 of not smoking. 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 Constitutional: Appearance: Normal appearance. HENT: Right Ear: Tympanic membrane, ear canal and external ear normal. Left Ear: Tympanic membrane, ear canal and external ear normal. Nose: Nose normal. No congestion or rhinorrhea. Mouth/Throat: Mouth: Mucous membranes are moist. Pharynx: Uvula midline. Posterior oropharyngeal erythema (slight) present. No oropharyngeal exudate. Cardiovascular: Rate and Rhythm: Normal rate and regular rhythm. Heart sounds: Normal heart sounds. Pulmonary: Effort: Pulmonary effort is normal. No respiratory distress. Breath sounds: Normal breath sounds. No wheezing or rales. Musculoskeletal: Cervical back: Neck supple. Lymphadenopathy: Cervical: No cervical adenopathy. Skin: General: Skin is warm and dry. Findings: No erythema or rash. Neurological: Mental Status: She is alert. ASSESSMENT/PLAN: 1. Sore throat - ICD9: 462, ICD10: J02.9 (primary diagnosis) - suspect viral - Group A strep molecular testing negative - Discussed supportive care treatment with fluids, rest and analgesia. - STREP A MOLECULAR (POC) - COVID NAAT, UPPER RESPIRATORY, ROUTINE 2. Ear pain, bilateral - ICD9: 388.70, ICD10: H92.03 - ear exam is normal today -may take ibuprofen or naproxen. - Follow-up with your PCP in 3-5 days if symptoms have not improved or sooner if symptoms worsen - Discussed red flags and need for immediate medical evaluation if any occur. - Discussed supportive care treatment with fluids, rest and analgesia. - Discussed expected course of illness Ketty Hopson APRN.[facility] 06-12-2023 Note HNO ID: [id number] Author: Nolvia Mccormack MD Service: ? Author Type: Physician Type: Progress Notes Filed: 06/12/2023 12:12 PM Note Text: New Patient/Consult REASON FOR VISIT Anastasia Garzon is a 37 year old female who is scheduled for a consult at the request of Chelly Chacko. CHIEF COMPLAINT Pancreatic cyst, abnormal liver function tests My final recommendations will be communicated back to the requesting physician by the way of the shared medical record, fax, or via US Mail. HISTORY OF PRESENT ILLNESS Ms. Garzon is a 37F who had a right sided groin hernia noted in Jun 2022 that noted persistent pain and soreness at the surgical site who underwent additional testing, revealing elevated LFTs and a CT scan that demonstrated a roughly 2 cm complex cyst in the pancreas. Has been taking Tylenol chronically for the pain in her groin. Groin pain gets worse with activity. Better with Tylenol and Ibuprofen. Takes Sleepy Time tea, Z-quil, Unisom for insomnia. Notes pancreatitis after a gallstone obstruction leading to a lap jovani when she was 18. In the past year has noted pain around her sternum which remains in one spot and gets worse with palpation of the surface. Notes some nausea in the setting of GERD - previously on Prilosec. No vomiting. No diarrhea. No oil droplets on the water or blood in the stool. Takes a probiotic. Notes weight gain over the past few months. PERTINENT PRIOR DIAGNOSTIC TESTING Luminal: No procedure results to review Extra Luminal: MRI/MRCP WO/W/IVCON 04/09/2023 IMPRESSION: -MULTILOCULATED CYSTIC STRUCTURE IN THE PANCREATIC NECK MAY REPRESENT AN IPMN A MUCINOUS CYSTIC NEOPLASM. THIS COULD BE FURTHER EVALUATED BY ENDOSCOPIC ULTRASOUND OR FOLLOW-UP STUDY IN 6 MONTHS. -9 MM UNIFORMLY ENHANCING NODULE IN THE ANTERIOR RIGHT LOBE OF THE LIVER MAY REPRESENT FOCAL NODULAR HYPERPLASIA OR A HEPATIC ADENOMA. THIS CAN BE FOLLOWED ON SUBSEQUENT IMAGING OBTAINED FOR FOLLOW-UP OF THE PANCREATIC CYSTIC LESION. RESULT: -Pancreas: Cystic lesion in the pancreatic neck with multiple internal septations, some of which enhance. This cystic lesion measures 2.2 x 2 x 2.1 cm. There is no communication with the pancreatic duct. No pancreatic duct dilatation. -Biliary: Mild dilatation of the common bile duct likely due to prior cholecystectomy. No filling defects in the common bile duct. -Liver: 9 mm uniformly enhancing nodule in the anterior right lobe of the liver segment VIII (15:16). No washout on portal venous phase images. Normal morphology. Portal vein and branches, splenic vein, superior mesenteric vein and hepatic veins are patent. CT A/P W IVCON 04/05/2023 IMPRESSION: -No acute process in the abdomen or pelvis. -2.5 cm cystic lesion in the pancreatic head. Recommend further evaluation with MRI pancreas biliary protocol. RESULT: -Liver: No mass. -Biliary: Mild central intrahepatic and extrahepatic biliary dilation likely related to postcholecystectomy. Calcification adjacent to the RIGHT hepatic dome (5:28) likely represents a dropped gallstone. -Spleen: No mass. No splenomegaly. -Pancreas: 2.5 x 2.0 cm cystic lesion in the pancreatic head (5: 36-41). No duct dilation. Labs: Component Ref Range AND Units 2 mo ago (04/09/23) 2 mo ago (04/03/23) 2 yr ago (01/11/21) 5 yr ago (06/04/18) 11 yr ago (04/15/12) 11 yr ago (03/13/12) 11 yr ago (12/31/11) Protein, Total 6.3 - 8.0 g/dL 7.3 6.9 7.0 7.0 7.2 R 6.6 R Albumin 3.9 - 4.9 g/dL 4.3 4.2 4.3 4.6 4.5 R 3.6 R Calcium, Total 8.5 - 10.2 mg/dL 9.8 9.2 9.3 9.5 10.1 R 9.4 R Bilirubin, Total 0.2 - 1.3 mg/dL 0.6 0.8 0.3 0.2 0.3 R 0.8 R Alkaline Phosphatase 34 - 123 U/L 154 High 143 High 101 65 121 R 289 High R AST 13 - 35 U/L 94 High 64 High 25 28 19 R 93 High R ALT 7 - 38 U/L 174 High 112 High 21 28 16 R 119 High R Glucose 74 - 99 mg/dL 85 70 Low CM 79 CM 89 CM 87 R 85 R 105 Abnormal R BUN 7 - 21 mg/dL 16 17 13 18 14 R 7 Low R Creatinine 0.58 - 0.96 mg/dL 0.81 0.74 0.73 0.66 0.68 Low R 0.63 Low R Sodium 136 - 144 mmol/L 139 137 140 138 140 R 137 R Potassium 3.7 - 5.1 mmol/L 4.2 4.1 4.4 4.1 4.2 R 4.0 R Chloride 97 - 105 mmol/L 103 102 103 98 103 R 103 R CO2 22 - 30 mmol/L 22 19 Low 21 Low 22 26 R 22 Low R Anion Gap 9 - 18 mmol/L 14 16 16 18 Estimated Glomerular Filtration Rate >=60 mL/min/1.73m? Component Ref Range AND Units 2 mo ago (04/03/23) 2 yr ago (01/11/21) 5 yr ago (06/04/18) 11 yr ago (04/15/12) 11 yr ago (03/14/12) 11 yr ago (03/13/12) 11 yr ago (12/31/11) WBC 3.70 - 11.00 k/uL 7.91 7.18 8.64 7.87 12.69 High 14.57 High CM 9.40 RBC 3.90 - 5.20 m/uL 4.29 4.35 4.30 4.47 2.79 Low 3.74 Low 3.48 Low Hemoglobin 11.5 - 15.5 g/dL 12.4 12.1 12.4 12.1 8.0 Low 10.5 Low 10.3 Low Hematocrit 36.0 - 46.0 % 38.6 38.9 39.0 38.2 24.2 Low 32.4 Low 30.9 Low MCV 80.0 - 100.0 fL 90.0 89.4 90.7 85.5 86.7 86.6 88 (more content not included)... [facility] 06-12-2023 History of Present illness Narrative New Patient/Consult REASON FOR VISIT Libbydianalennybenamy Garzon is a 37 year old female who is scheduled for a consult at the request of Chelly Chacko. CHIEF COMPLAINT Pancreatic cyst, abnormal liver function tests My final recommendations will be communicated back to the requesting physician by the way of the shared medical record, fax, or via US Mail. HISTORY OF PRESENT ILLNESS Ms. Garzon is a 37F who had a right sided groin hernia noted in Jun 2022 that noted persistent pain and soreness at the surgical site who underwent additional testing, revealing elevated LFTs and a CT scan that demonstrated a roughly 2 cm complex cyst in the pancreas. Has been taking Tylenol chronically for the pain in her groin. Groin pain gets worse with activity. Better with Tylenol and Ibuprofen. Takes Sleepy Time tea, Z-quil, Unisom for insomnia. Notes pancreatitis after a gallstone obstruction leading to a lap jovani when she was 18. In the past year has noted pain around her sternum which remains in one spot and gets worse with palpation of the surface. Notes some nausea in the setting of GERD - previously on Prilosec. No vomiting. No diarrhea. No oil droplets on the water or blood in the stool. Takes a probiotic. Notes weight gain over the past few months. PERTINENT PRIOR DIAGNOSTIC TESTING Luminal: No procedure results to review Extra Luminal: MRI/MRCP WO/W/IVCON 04/09/2023 IMPRESSION: -MULTILOCULATED CYSTIC STRUCTURE IN THE PANCREATIC NECK MAY REPRESENT AN IPMN A MUCINOUS CYSTIC NEOPLASM. THIS COULD BE FURTHER EVALUATED BY ENDOSCOPIC ULTRASOUND OR FOLLOW-UP STUDY IN 6 MONTHS. -9 MM UNIFORMLY ENHANCING NODULE IN THE ANTERIOR RIGHT LOBE OF THE LIVER MAY REPRESENT FOCAL NODULAR HYPERPLASIA OR A HEPATIC ADENOMA. THIS CAN BE FOLLOWED ON SUBSEQUENT IMAGING OBTAINED FOR FOLLOW-UP OF THE PANCREATIC CYSTIC LESION. RESULT: -Pancreas: Cystic lesion in the pancreatic neck with multiple internal septations, some of which enhance. This cystic lesion measures 2.2 x 2 x 2.1 cm. There is no communication with the pancreatic duct. No pancreatic duct dilatation. -Biliary: Mild dilatation of the common bile duct likely due to prior cholecystectomy. No filling defects in the common bile duct. -Liver: 9 mm uniformly enhancing nodule in the anterior right lobe of the liver segment VIII (15:16). No washout on portal venous phase images. Normal morphology. Portal vein and branches, splenic vein, superior mesenteric vein and hepatic veins are patent. CT A/P W IVCON 04/05/2023 IMPRESSION: -No acute process in the abdomen or pelvis. -2.5 cm cystic lesion in the pancreatic head. Recommend further evaluation with MRI pancreas biliary protocol. RESULT: -Liver: No mass. -Biliary: Mild central intrahepatic and extrahepatic biliary dilation likely related to postcholecystectomy. Calcification adjacent to the RIGHT hepatic dome (5:28) likely represents a dropped gallstone. -Spleen: No mass. No splenomegaly. -Pancreas: 2.5 x 2.0 cm cystic lesion in the pancreatic head (5: 36-41). No duct dilation. Labs: Component Ref Range & Units 2 mo ago (04/09/23) 2 mo ago (04/03/23) 2 yr ago (01/11/21) 5 yr ago (06/04/18) 11 yr ago (04/15/12) 11 yr ago (03/13/12) 11 yr ago (12/31/11) Protein, Total 6.3 - 8.0 g/dL 7.3 6.9 7.0 7.0 7.2 R 6.6 R Albumin 3.9 - 4.9 g/dL 4.3 4.2 4.3 4.6 4.5 R 3.6 R Calcium, Total 8.5 - 10.2 mg/dL 9.8 9.2 9.3 9.5 10.1 R 9.4 R Bilirubin, Total 0.2 - 1.3 mg/dL 0.6 0.8 0.3 0.2 0.3 R 0.8 R Alkaline Phosphatase 34 - 123 U/L 154 High 143 High 101 65 121 R 289 High R AST 13 - 35 U/L 94 High 64 High 25 28 19 R 93 High R ALT 7 - 38 U/L 174 High 112 High 21 28 16 R 119 High R Glucose 74 - 99 mg/dL 85 70 Low CM 79 CM 89 CM 87 R 85 R 105 Abnormal R BUN 7 - 21 mg/dL 16 17 13 18 14 R 7 Low R Creatinine 0.58 - 0.96 mg/dL 0.81 0.74 0.73 0.66 0.68 Low R 0.63 Low R Sodium 136 - 144 mmol/L 139 137 140 138 140 R 137 R Potassium 3.7 - 5.1 mmol/L 4.2 4.1 4.4 4.1 4.2 R 4.0 R Chloride 97 - 105 mmol/L 103 102 103 98 103 R 103 R CO2 22 - 30 mmol/L 22 19 Low 21 Low 22 26 R 22 Low R Anion Gap 9 - 18 mmol/L 14 16 16 18 Estimated Glomerular Filtration Rate >=60 mL/min/1.73m Component Ref Range & Units 2 mo ago (04/03/23) 2 yr ago (01/11/21) 5 yr ago (06/04/18) 11 yr ago (04/15/12) 11 yr ago (03/14/12) 11 yr ago (03/13/12) 11 yr ago (12/31/11) WBC 3.70 - 11.00 k/uL 7.91 7.18 8.64 7.87 12.69 High 14.57 High CM 9.40 RBC 3.90 - 5.20 m/uL 4.29 4.35 4.30 4.47 2.79 Low 3.74 Low 3.48 Low Hemoglobin 11.5 - 15.5 g/dL 12.4 12.1 12.4 12.1 8.0 Low 10.5 Low 10.3 Low Hematocrit 36.0 - 46.0 % 38.6 38.9 39.0 38.2 24.2 Low 32.4 Low 30.9 Low MCV 80.0 - 100.0 fL 90.0 89.4 90.7 85.5 86.7 86.6 88.8 MCH 26.0 - 34.0 pg 28.9 27.8 R 28.8 R 27.1 R 28.7 R 28.1 R 29.6 R MCHC 30.5 - 36.0 g/dL 32.1 31.1 31.8 31.7 33.1 32.4 33.3 RDW-CV 11.5 - 15.0 % 13.7 13.3 13.5 14.6 14.5 14.2 13.3 Platelet Count 150 - 400 k/uL 226 188 CM 205 253 135 Low 153 CM 192 Comment: Results checked and verified.No clot detected. MPV 9.0 - 12.7 fL 13.6 High 13.9 High 12.9 High 13.2 High 14.7 High 13.4 High Neutrophils % % 61.2 62.1 69.5 51.5 R 69.0 R Abs Neut 1.45 - 7.50 k/uL 4.84 4.44 6.00 4.05 6.49 Lymphocytes % % 28.3 28.4 22.6 38.6 R 20.0 R Abs Lymph 1.00 - 4.00 k/uL 2.24 2.04 1.95 3.04 1.88 Monocytes % % 8.7 7.7 7.5 9.0 R 10.0 R Abs [place] <0.87 k/uL 0.69 0.55 0.65 0.71 R 0.94 High R Eosinophils % % 0.9 1.4 0.2 0.8 R 0.0 R Abs Eosin <0.46 k/uL 0.07 0.10 <0.03 0.06 R 0.00 R Basophils % % 0.5 0.4 0.2 0.1 R 1.0 R Abs Baso <0.11 k/uL 0.04 0.03 <0.03 0.01 R 0.09 R Immature Granulocytes % % 0.4 Abs Immature Gran <0.10 k/uL 0.03 NRBC /100 WBC 0.0 Absolute nRBC <0.01 k/uL <0.01 <0.01 <0.01 Diff Type Auto Nucleated Reds 0.0 R 0.0 R MEDICATIONS Current Outpatient Medications Medication Sig Dispense Refill CHONDROITIN SULFATE-TURMERIC ORAL Take 1 capsule by mouth as needed. albuterol HFA (VENTOLIN HFA) 90 mcg/actuation inhaler Inhale 2 Puffs as instructed every 4 hours as needed for wheezing/shortness of breath. 1 Each 0 loratadine (CLARITIN) 10 mg tablet Take 1 tablet by mouth once daily. 30 tablet 11 varenicline (CHANTIX) 1 mg tablet Take 1 tablet by mouth twice daily. 60 tablet 1 varenicline (CHANTIX) 1 mg tablet Take 0.5 tablets by mouth once daily for 3 days, THEN 0.5 tablets twice daily for 4 days, THEN 1 tablet twice daily for 23 days. 60 tablet 1 SARA 1/20, 21, 1-20 mg-mcg per tablet Take 1 tablet by mouth once daily. No current facility-administered medications for this visit. ALLERGIES ALLERGIES Allergen Reactions Amoxicillin Itching Lactose Intolerant * Diarrhea Mirena [Levonorgest* Other: See Comments Mirena removed 6 mos after insertion due to cramping. Advised she is not a good candidate for another IUD Zithromax [Azithrom* Hives PAST MEDICAL HISTORY PAST MEDICAL HISTORY Diagnosis Date Abdominal pain, epigastric Reflux Unspecified disease of pancreas 2004 Pancreatitis PAST SURGICAL HISTORY PAST SURGICAL HISTORY Procedure Laterality Date EGD TRANSORAL BIOPSY SINGLE/MULTIPLE 08/16/2005 LAPAROSCOPY SURG CHOLECYSTECTOMY 09/22/2004 Cholecystectomy, lap PAST SURGICAL HISTORY OF Right 06/2022 Hernia surgery, [facility] SOCIAL HISTORY Social History Tobacco Use Smoking status: Former Packs/day: .3 Types: Cigarettes Quit date: 12/13/2022 Years since quittin.4 Smokeless tobacco: Never Tobacco comments: Currently on day 2 of not smoking. 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, Crystal Meth Comment: sober 3 years FAMILY HISTORY FAMILY HISTORY Problem Relation Age of Onset Hypertension Mother Heart Father GI Sister Half-sister No Known Problems Sister No Known Problems Sister No Known Problems Sister No Known Problems Brother No Known Problems Brother Diabetes Maternal Grandmother Hypertension Maternal Grandmother Diabetes Paternal Grandmother unsure if she has GASTROINTESTINAL REVIEW OF SYSTEMS Difficulty swallowing / foods sticking in throat: No Heartburn: Yes Chest Pain: Yes Filling up quickly at meals: No Loss of appetite: No Nausea: No Vomiting: No Abdominal pain: Yes Bloody or black, bowel movements: No Constipation: No Diarrhea: Yes Vomiting blood: No Recent change in weight: No Answers submitted by the patient for this visit: Review of Systems Gastroenterology (Submitted on 06/11/2023) Fever: No Chills: No Night Sweats: No Unitentional Weight Change: No A Cough: No Difficulty Breathing: No Chest Pain: Yes Belly pain: No A feeling of fullness or have belly pain after eating: No Food getting stuck in your throat or chest after eating: No Nausea - that is, a feeling like you could vomit: Yes Regurgitation - that is, food or liquid coming back up into your throat or mouth without vomiting, or feel burning behind your breast bone: Yes Loss of appetite: No To throw up or vomit: No Blood in your stools: No Black tarry stools: No Loose or watery stools: Yes The feeling like you need to empty your bowels right away - that is, feel as if you would have an accident: No Bowel incontinence - that is, have an accident because you cannot make it to the bathroom in time: No Problems with straining while having bowel movements , hard or lumpy stools, or feel unfinished (that you have not passed all your stool): Yes Pain in rectum or anus during bowel movements: No Problems with jaundice - that is, yellow discoloration of your skin or eyes, now or in the past: No Problems with having to flush the toilet more than two times due to oily stool, or see stool floating with oil: No REVIEW OF OTHER SYSTEMS GENERAL: No weight loss, malaise or fevers PHYSICAL EXAMINATION LMP 05/09/2023 General appearance: cooperative, in no acute distress Lungs: Lungs clear to auscultation. No wheezing or ronchi. Heart: S1, S2 Normal Abdomen: Bowel sounds normal, No masses, and No organomegaly. Tenderness to palpation in LLQ around surgical site of groin repair. TTP near xiphoid process worse with movement. Assessment IMPRESSION AND PLAN ASSESSMENT/PLAN: 1. Pancreatic cyst - ICD9: 577.2, ICD10: K86.2 Likely benign mucinous cyst. No weight loss, diarrhea, or significant epigastric symptoms (pain, vomiting). Mild nausea. Will further characterize lesion with EUS with FNA. Imaging follow up can be done every 2-3 years as needed. - EGD - THERAPEUTIC, EUS, OR TUBE INTERVENTIONS - HEPATIC FUNCTION PNL 2. Elevated alkaline phosphatase level - ICD9: 790.5, ICD10: R74.8 Mild mixed picture of LFTs with ALT>AST. Likely in the setting of several months of acetaminophen use for her groin hernia pain as pancreatic cyst would not be expected to cause LFT elevations. Will repeat LFTs and if persistently elevated (last acetaminophen use was in 03/2023) will order remote hepatitis panel, SMA, AMA, ceruloplasmin for further workup. - HEPATIC FUNCTION PNL 3. Elevated LFTs - ICD9: 790.6, ICD10: R79.89 See above for Elevated Alk phos. - Repeat HEPATIC FUNCTION PNL. If still elevated consider hepatology consult. Robinson Oden MD RTC in 3 months Scribe Attestation: By signing my name below, Demetrice Delvalle RN, attest that this documentation has been prepared under the direction and in the presence of Nolvia Mccormack. Electronically Signed: Demetrice Fernandes RN, Scribe. June 12, 2023 8:40 AM. Provider Attestation: Nolvia Delvalle MD personally performed the services described in this documentation. All medical record entries made by the scribe were at my direction and in my presence. I have reviewed the chart and discharge instructions (if applicable) and agree that the record reflects my personal performance and is accurate and complete. Electronically Signed: Nolvia Mccormack MD, June 12, 2023 12:10 PM documented in this encounter [facility] 05-27-2023 Note HNO ID: [id number] Author: Chelly Chacko MD Service: ? Author Type: Physician Type: Progress Notes Filed: 05/27/2023 9:37 AM Note Text: Chief Complaint Patient presents with: Pain: In legs and feet- not supposed to be using the tylenol D/T elevated LFT's HPI Anastasia Garzon is a 37 year old female who presents here today for Above Complaints. Patient here today with complaint of chronic feet and leg pain and is asking about alternative to tylenol for pain. 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 Describes pain in her legs and feet as soreness which worsens as they day goes on. Has been using gel insoles in her shoes during the day. Boyfriend will massage her legs which does help with pain. Stands a lot for her job. Avoiding tylenol due to elevated LFTs. Has tried taking turmeric OTC which does help some with her pain. Denies claudication, swelling, redness, cyanosis, cold extremities. Past medical history, appointments, medications, allergies reviewed. Previous Medical History PAST MEDICAL HISTORY Diagnosis Date Abdominal pain, epigastric Reflux Unspecified disease of pancreas 2004 Pancreatitis Previous Surgical History PAST SURGICAL HISTORY Procedure Laterality Date EGD TRANSORAL BIOPSY SINGLE/MULTIPLE 08/16/2005 LAPAROSCOPY SURG CHOLECYSTECTOMY 09/22/2004 Cholecystectomy, lap PAST SURGICAL HISTORY OF Right 06/2022 Hernia surgery, [facility] Family History FAMILY HISTORY Problem Relation Age of Onset Hypertension Mother Heart Father GI Sister Half-sister No Known Problems Sister No Known Problems Sister No Known Problems Sister No Known Problems Brother No Known Problems Brother Diabetes Maternal Grandmother Hypertension Maternal Grandmother Diabetes Paternal Grandmother unsure if she has Patient Allergies ALLERGIES Allergen Reactions Amoxicillin Itching Lactose Intolerant * Diarrhea Mirena [Levonorgest* Other: See Comments Mirena removed 6 mos after insertion due to cramping. Advised she is not a good candidate for another IUD Zithromax [Azithrom* Hives Current Medications Current Outpatient Medications on File Prior to Visit Medication Sig CHONDROITIN SULFATE-TURMERIC ORAL Take 1 capsule by mouth as needed. albuterol HFA (VENTOLIN HFA) 90 mcg/actuation inhaler Inhale 2 Puffs as instructed every 4 hours as needed for wheezing/shortness of breath. loratadine (CLARITIN) 10 mg tablet Take 1 tablet by mouth once daily. varenicline (CHANTIX) 1 mg tablet Take 1 tablet by mouth twice daily. varenicline (CHANTIX) 1 mg tablet Take 0.5 tablets by mouth once daily for 3 days, THEN 0.5 tablets twice daily for 4 days, THEN 1 tablet twice daily for 23 days. SARA 08/03, 21, 1-20 mg-mcg per tablet Take 1 tablet by mouth once daily. No current facility-administered medications on file prior to visit. Social History Social History Tobacco Use Smoking status: Former Packs/day: .3 Types: Cigarettes Quit date: 12/13/2022 Years since quittin.4 Smokeless tobacco: Never Tobacco comments: Currently on day 2 of not smoking. 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 General Appearance: Well appearing, alert, in no acute distress, well-hydrated, well nourished.. Skin: Skin color, texture, turgor normal, no suspicious rashes or lesions. Musculoskeletal: Admits to mild soreness in her thighs and calves with palpation. No joint swelling, deformity, or tenderness. Extremities: no edema, cyanosis, or cold extremities. Peripheral Pulses: femoral=4/4, dorsalis pedis=4/4, posterior tibial=4/4. Health Maintenance List Hepatitis B Vaccine(1 of 3 - 3-dose series) Never done Influenza Vaccine(1) Never done Pap Testing due on 06/12/2023 HPV Testing due on 06/12/2023 DTaP,Tdap,Td Vaccine(1 - Tdap) due on 12/28/2023 Covid-19 Vaccine(1) due on 12/28/2023 Depression Assessment Completed Hepatitis C Screening Completed HIV Screening Completed HPV Vaccine Aged Out Data reviewed Component Latest Ref Rng AND Units 04/03/2023 04/09/2023 04/09/2023 04/22/2023 2:47 PM 2:47 PM WBC 3.70 - 11.00 k/uL 7.91 RBC 3.90 - 5.20 m/uL 4.29 Hemoglobin 11.5 - 15.5 g/dL 12.4 Hematocrit 36.0 - 46.0 % 38.6 MCV 80.0 - 100.0 fL 90.0 MCH 26.0 - 34.0 pg 28.9 MCHC 30.5 - 36.0 g/dL 32.1 RDW-CV 11.5 - 15.0 % 13.7 Platelet Count 150 - 400 k/uL 226 MPV 9.0 - 12.7 fL 13.6 (H) Neut% % 61.2 Abs Neut (ANC) 1.45 - 7.50 k/uL 4.84 Lymph% % 28.3 Abs Lymph 1.00 - 4.00 k/uL 2.24 [place]% % 8.7 Abs [place] <0.87 k/uL 0.69 Eosin% % 0.9 Abs Eosi (more content not included)... [facility] 05-27-2023 History of Present illness Narrative Chief Complaint Patient presents with: Pain: In legs and feet- not supposed to be using the tylenol D/T elevated LFT's PAIGE Anastasia Garzon is a 37 year old female who presents here today for Above Complaints. Patient here today with complaint of chronic feet and leg pain and is asking about alternative to tylenol for pain. 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 Describes pain in her legs and feet as soreness which worsens as they day goes on. Has been using gel insoles in her shoes during the day. Boyfriend will massage her legs which does help with pain. Stands a lot for her job. Avoiding tylenol due to elevated LFTs. Has tried taking turmeric OTC which does help some with her pain. Denies claudication, swelling, redness, cyanosis, cold extremities. Past medical history, appointments, medications, allergies reviewed. Previous Medical History PAST MEDICAL HISTORY Diagnosis Date Abdominal pain, epigastric Reflux Unspecified disease of pancreas 2004 Pancreatitis Previous Surgical History PAST SURGICAL HISTORY Procedure Laterality Date EGD TRANSORAL BIOPSY SINGLE/MULTIPLE 08/16/2005 LAPAROSCOPY SURG CHOLECYSTECTOMY 09/22/2004 Cholecystectomy, lap PAST SURGICAL HISTORY OF Right 06/2022 Hernia surgery, [facility] Family History FAMILY HISTORY Problem Relation Age of Onset Hypertension Mother Heart Father GI Sister Half-sister No Known Problems Sister No Known Problems Sister No Known Problems Sister No Known Problems Brother No Known Problems Brother Diabetes Maternal Grandmother Hypertension Maternal Grandmother Diabetes Paternal Grandmother unsure if she has Patient Allergies ALLERGIES Allergen Reactions Amoxicillin Itching Lactose Intolerant * Diarrhea Mirena [Levonorgest* Other: See Comments Mirena removed 6 mos after insertion due to cramping. Advised she is not a good candidate for another IUD Zithromax [Azithrom* Hives Current Medications Current Outpatient Medications on File Prior to Visit Medication Sig CHONDROITIN SULFATE-TURMERIC ORAL Take 1 capsule by mouth as needed. albuterol HFA (VENTOLIN HFA) 90 mcg/actuation inhaler Inhale 2 Puffs as instructed every 4 hours as needed for wheezing/shortness of breath. loratadine (CLARITIN) 10 mg tablet Take 1 tablet by mouth once daily. varenicline (CHANTIX) 1 mg tablet Take 1 tablet by mouth twice daily. varenicline (CHANTIX) 1 mg tablet Take 0.5 tablets by mouth once daily for 3 days, THEN 0.5 tablets twice daily for 4 days, THEN 1 tablet twice daily for 23 days. SARA 1/20, 21, 1-20 mg-mcg per tablet Take 1 tablet by mouth once daily. No current facility-administered medications on file prior to visit. Social History Social History Tobacco Use Smoking status: Former Packs/day: .3 Types: Cigarettes Quit date: 12/13/2022 Years since quittin.4 Smokeless tobacco: Never Tobacco comments: Currently on day 2 of not smoking. 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 Skin: Skin color, texture, turgor normal, no suspicious rashes or lesions. Musculoskeletal: Admits to mild soreness in her thighs and calves with palpation. No joint swelling, deformity, or tenderness. Extremities: no edema, cyanosis, or cold extremities. Peripheral Pulses: femoral=4/4, dorsalis pedis=4/4, posterior tibial=4/4. Health Maintenance List Hepatitis B Vaccine(1 of 3 - 3-dose series) Never done Influenza Vaccine(1) Never done Pap Testing due on 06/12/2023 HPV Testing due on 06/12/2023 DTaP,Tdap,Td Vaccine(1 - Tdap) due on 12/28/2023 Covid-19 Vaccine(1) due on 12/28/2023 Depression Assessment Completed Hepatitis C Screening Completed HIV Screening Completed HPV Vaccine Aged Out Data reviewed Component Latest Ref Rng & Units 04/03/2023 04/09/2023 04/09/2023 04/22/2023 2:47 PM 2:47 PM WBC 3.70 - 11.00 k/uL 7.91 RBC 3.90 - 5.20 m/uL 4.29 Hemoglobin 11.5 - 15.5 g/dL 12.4 Hematocrit 36.0 - 46.0 % 38.6 MCV 80.0 - 100.0 fL 90.0 MCH 26.0 - 34.0 pg 28.9 MCHC 30.5 - 36.0 g/dL 32.1 RDW-CV 11.5 - 15.0 % 13.7 Platelet Count 150 - 400 k/uL 226 MPV 9.0 - 12.7 fL 13.6 (H) Neut% % 61.2 Abs Neut (ANC) 1.45 - 7.50 k/uL 4.84 Lymph% % 28.3 Abs Lymph 1.00 - 4.00 k/uL 2.24 [place]% % 8.7 Abs [place] <0.87 k/uL 0.69 Eosin% % 0.9 Abs Eosin <0.46 k/uL 0.07 Baso% % 0.5 Abs Baso <0.11 k/uL 0.04 Immature Gran % % 0.4 IMMATURE GRANS (ABS) <0.10 k/uL 0.03 NRBC /100 WBC 0.0 Absolute nRBC <0.01 k/uL <0.01 DTYPE Auto Protein, Total 6.3 - 8.0 g/dL 6.9 7.3 Albumin 3.9 - 4.9 g/dL 4.2 4.3 Calcium 8.5 - 10.2 mg/dL 9.2 9.8 Bilirubin, Total 0.2 - 1.3 mg/dL 0.8 0.6 Alkaline Phosphatase 34 - 123 U/L 143 (H) 154 (H) 157 (H) AST 13 - 35 U/L 64 (H) 94 (H) ALT 7 - 38 U/L 112 (H) 174 (H) Glucose 74 - 99 mg/dL 70 (L) 85 BUN 7 - 21 mg/dL 17 16 Creatinine 0.58 - 0.96 mg/dL 0.74 0.81 Sodium 136 - 144 mmol/L 137 139 Potassium 3.7 - 5.1 mmol/L 4.1 4.2 Chloride 97 - 105 mmol/L 102 103 CO2 22 - 30 mmol/L 19 (L) 22 Anion Gap 9 - 18 mmol/L 16 14 eGFR >=60 mL/min/1.73m 108 97 Alk Phos Bone % 10.7 - 68.3 % 23.8 Bone Fraction 12.9 - 52.6 U/L 37.4 Alk Phos Liver % 26.0 - 86.2 % 72.6 Liver Fraction 16.0 - 69.3 U/L 114.0 (H) Alk Phos Intestine % 0.0 - 24.2 % 3.6 Intestine Fraction 0.0 - 16.3 U/L 5.7 Iron 41 - 186 ug/dL 174 TIBC 232 - 386 ug/dL 360 Transferrin Saturation 15.0 - 57.0 % 48.3 WSR 0 - 20 mm/hr 20 CRP <0.9 mg/dL 1.0 (H) Ferritin 14.7 - 205.1 ng/mL 198.0 Hep A Ab, IgM Negative Negative Hep B Core Ab, IgM Negative Negative Hep B Surface Ag Negative Negative Hep C Antibody IA Negative Negative ASSESSMENT/PLAN: 1. Pain in both lower extremities - ICD9: 729.5, ICD10: M79.604, M79.605 (primary diagnosis) Patient complaining of soreness after standing all day at work. Discussed replacing shoes regularly, gel insoles vs Dr. Bates, self massage, ice/heat, and OTC NSAIDs PRN. Call with worsening symptoms. 2. Foot pain, bilateral - ICD9: 729.5, ICD10: M79.671, M79.672 See above. Chelly Chacko MD documented in this encounter [facility] 04-23-2023 Miscellaneous Notes Pt returned call and given provider's message below with verbalized understanding. Message left for patient to return call and speak with a nurse to review results and recommendations. ----- Message from Chelly Chacko MD sent at 04/23/2023 8:08 AM EDT ----- Screening for hepatitis negative. Iron studies normal. Keep f/u with GI as scheduled. documented in this encounter [facility] 04-16-2023 Note HNO ID: [id number] Author: Chelly Chacko MD Service: ? Author Type: Physician Type: Progress Notes Filed: 04/16/2023 9:28 AM Note Text: Chief Complaint Patient presents with: Results: discuss Ear Problem: c/o itch HPI Huytabenia Denilson Garzon is a 37 year old female who presents here today for Above Complaints.. 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 Discussed worsening liver function and imaging as noted below. Patient is avoiding tylenol and does not drink. Denies fatigue, jaundice, generalized itching, fatigue, worsening abdominal pain, nausea, vomiting. Has not scheduled appointment with GI for further workup as previously recommended. Patient also complaining of ear itching x 2 days. Taking OTC medications for allergies. Denies pain, bleeding, hearing loss or drainage. Past medical history, appointments, medications, allergies reviewed. Previous Medical History PAST MEDICAL HISTORY Diagnosis Date Abdominal pain, epigastric Reflux Unspecified disease of pancreas 2004 Pancreatitis Previous Surgical History PAST SURGICAL HISTORY Procedure Laterality Date EGD TRANSORAL BIOPSY SINGLE/MULTIPLE 08/16/2005 LAPAROSCOPY SURG CHOLECYSTECTOMY 09/22/2004 Cholecystectomy, lap PAST SURGICAL HISTORY OF Right 06/2022 Hernia surgery, [facility] Family History FAMILY HISTORY Problem Relation Age of Onset Hypertension Mother Heart Father GI Sister Half-sister No Known Problems Sister No Known Problems Sister No Known Problems Sister No Known Problems Brother No Known Problems Brother Diabetes Maternal Grandmother Hypertension Maternal Grandmother Diabetes Paternal Grandmother unsure if she has Patient Allergies ALLERGIES Allergen Reactions Amoxicillin Itching Lactose Intolerant * Diarrhea Mirena [Levonorgest* Other: See Comments Mirena removed 6 mos after insertion due to cramping. Advised she is not a good candidate for another IUD Zithromax [Azithrom* Hives Current Medications Current Outpatient Medications on File Prior to Visit Medication Sig CHONDROITIN SULFATE-TURMERIC ORAL Take 1 capsule by mouth as needed. albuterol HFA (VENTOLIN HFA) 90 mcg/actuation inhaler Inhale 2 Puffs as instructed every 4 hours as needed for wheezing/shortness of breath. loratadine (CLARITIN) 10 mg tablet Take 1 tablet by mouth once daily. SARA 1/20, 21, 1-20 mg-mcg per tablet Take 1 tablet by mouth once daily. varenicline (CHANTIX) 1 mg tablet Take 1 tablet by mouth twice daily. varenicline (CHANTIX) 1 mg tablet Take 0.5 tablets by mouth once daily for 3 days, THEN 0.5 tablets twice daily for 4 days, THEN 1 tablet twice daily for 23 days. No current facility-administered medications on file prior to visit. Social History Social History Tobacco Use Smoking status: Former Packs/day: .3 Types: Cigarettes Quit date: 12/13/2022 Years since quittin.3 Smokeless tobacco: Never Tobacco comments: Currently on day 2 of not smoking. 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 General Appearance: Well appearing, alert, in no acute distress, well-hydrated, well nourished.. Skin: Skin color, texture, turgor normal, no suspicious rashes or lesions. Eyes: Anicteric sclera. Pupils are equally round and reactive to light. Extraocular movements are intact. . Ears: External ears normal, canals clear. Abdomen: Abdomen soft. Bowel sounds normal. No masses, organomegaly, Positive findings: tenderness mild epigastric and RLQ. Health Maintenance List Hepatitis B Vaccine(1 of 3 - 3-dose series) Never done Influenza Vaccine(1) Never done Pap Testing due on 06/12/2023 HPV Testing due on 06/12/2023 DTaP,Tdap,Td Vaccine(1 - Tdap) due on 12/28/2023 Covid-19 Vaccine(1) due on 12/28/2023 Depression Assessment Completed Hepatitis C Screening Completed HIV Screening Completed HPV Vaccine Aged Out Data reviewed Component Latest Ref Rng AND Units 04/03/2023 04/09/2023 WBC 3.70 - 11.00 k/uL 7.91 RBC 3.90 - 5.20 m/uL 4.29 Hemoglobin 11.5 - 15.5 g/dL 12.4 Hematocrit 36.0 - 46.0 % 38.6 MCV 80.0 - 100.0 fL 90.0 MCH 26.0 - 34.0 pg 28.9 MCHC 30.5 - 36.0 g/dL 32.1 RDW-CV 11.5 - 15.0 % 13.7 Platelet Count 150 - 400 k/uL 226 MPV 9.0 - 12.7 fL 13.6 (H) Neut% % 61.2 Abs Neut (ANC) 1.45 - 7.50 k/uL 4.84 Lymph% % 28.3 Abs Lymph 1.00 - 4.00 k/uL 2.24 [place]% % 8.7 Abs [place] <0.87 k/uL 0.69 Eosin% % 0.9 Abs Eosin <0.46 k/uL 0.07 Baso% % 0.5 Abs Baso <0.11 k (more content not included)... [facility] 04-16-[facility] History of Present illness Narrative Chief Complaint Patient presents with: Results: discuss Ear Problem: c/o itch HPI Anastasia Garzon is a 37 year old female who presents here today for Above Complaints.. 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 Discussed worsening liver function and imaging as noted below. Patient is avoiding tylenol and does not drink. Denies fatigue, jaundice, generalized itching, fatigue, worsening abdominal pain, nausea, vomiting. Has not scheduled appointment with GI for further workup as previously recommended. Patient also complaining of ear itching x 2 days. Taking OTC medications for allergies. Denies pain, bleeding, hearing loss or drainage. Past medical history, appointments, medications, allergies reviewed. Previous Medical History PAST MEDICAL HISTORY Diagnosis Date Abdominal pain, epigastric Reflux Unspecified disease of pancreas 2004 Pancreatitis Previous Surgical History PAST SURGICAL HISTORY Procedure Laterality Date EGD TRANSORAL BIOPSY SINGLE/MULTIPLE 08/16/2005 LAPAROSCOPY SURG CHOLECYSTECTOMY 09/22/2004 Cholecystectomy, lap PAST SURGICAL HISTORY OF Right 06/2022 Hernia surgery, [facility] Family History FAMILY HISTORY Problem Relation Age of Onset Hypertension Mother Heart Father GI Sister Half-sister No Known Problems Sister No Known Problems Sister No Known Problems Sister No Known Problems Brother No Known Problems Brother Diabetes Maternal Grandmother Hypertension Maternal Grandmother Diabetes Paternal Grandmother unsure if she has Patient Allergies ALLERGIES Allergen Reactions Amoxicillin Itching Lactose Intolerant * Diarrhea Mirena [Levonorgest* Other: See Comments Mirena removed 6 mos after insertion due to cramping. Advised she is not a good candidate for another IUD Zithromax [Azithrom* Hives Current Medications Current Outpatient Medications on File Prior to Visit Medication Sig CHONDROITIN SULFATE-TURMERIC ORAL Take 1 capsule by mouth as needed. albuterol HFA (VENTOLIN HFA) 90 mcg/actuation inhaler Inhale 2 Puffs as instructed every 4 hours as needed for wheezing/shortness of breath. loratadine (CLARITIN) 10 mg tablet Take 1 tablet by mouth once daily. SARA 1/20, 21, 1-20 mg-mcg per tablet Take 1 tablet by mouth once daily. varenicline (CHANTIX) 1 mg tablet Take 1 tablet by mouth twice daily. varenicline (CHANTIX) 1 mg tablet Take 0.5 tablets by mouth once daily for 3 days, THEN 0.5 tablets twice daily for 4 days, THEN 1 tablet twice daily for 23 days. No current facility-administered medications on file prior to visit. Social History Social History Tobacco Use Smoking status: Former Packs/day: .3 Types: Cigarettes Quit date: 12/13/2022 Years since quittin.3 Smokeless tobacco: Never Tobacco comments: Currently on day 2 of not smoking. 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 Skin: Skin color, texture, turgor normal, no suspicious rashes or lesions. Eyes: Anicteric sclera. Pupils are equally round and reactive to light. Extraocular movements are intact. . Ears: External ears normal, canals clear. Abdomen: Abdomen soft. Bowel sounds normal. No masses, organomegaly, Positive findings: tenderness mild epigastric and RLQ. Health Maintenance List Hepatitis B Vaccine(1 of 3 - 3-dose series) Never done Influenza Vaccine(1) Never done Pap Testing due on 06/12/2023 HPV Testing due on 06/12/2023 DTaP,Tdap,Td Vaccine(1 - Tdap) due on 12/28/2023 Covid-19 Vaccine(1) due on 12/28/2023 Depression Assessment Completed Hepatitis C Screening Completed HIV Screening Completed HPV Vaccine Aged Out Data reviewed Component Latest Ref Rng & Units 04/03/2023 04/09/2023 WBC 3.70 - 11.00 k/uL 7.91 RBC 3.90 - 5.20 m/uL 4.29 Hemoglobin 11.5 - 15.5 g/dL 12.4 Hematocrit 36.0 - 46.0 % 38.6 MCV 80.0 - 100.0 fL 90.0 MCH 26.0 - 34.0 pg 28.9 MCHC 30.5 - 36.0 g/dL 32.1 RDW-CV 11.5 - 15.0 % 13.7 Platelet Count 150 - 400 k/uL 226 MPV 9.0 - 12.7 fL 13.6 (H) Neut% % 61.2 Abs Neut (ANC) 1.45 - 7.50 k/uL 4.84 Lymph% % 28.3 Abs Lymph 1.00 - 4.00 k/uL 2.24 [place]% % 8.7 Abs [place] <0.87 k/uL 0.69 Eosin% % 0.9 Abs Eosin <0.46 k/uL 0.07 Baso% % 0.5 Abs Baso <0.11 k/uL 0.04 Immature Gran % % 0.4 IMMATURE GRANS (ABS) <0.10 k/uL 0.03 NRBC /100 WBC 0.0 Absolute nRBC <0.01 k/uL <0.01 DTYPE Auto Protein, Total 6.3 - 8.0 g/dL 6.9 7.3 Albumin 3.9 - 4.9 g/dL 4.2 4.3 Calcium 8.5 - 10.2 mg/dL 9.2 9.8 Bilirubin, Total 0.2 - 1.3 mg/dL 0.8 0.6 Alkaline Phosphatase 34 - 123 U/L 143 (H) 154 (H) AST 13 - 35 U/L 64 (H) 94 (H) ALT 7 - 38 U/L 112 (H) 174 (H) Glucose 74 - 99 mg/dL 70 (L) 85 BUN 7 - 21 mg/dL 17 16 Creatinine 0.58 - 0.96 mg/dL 0.74 0.81 Sodium 136 - 144 mmol/L 137 139 Potassium 3.7 - 5.1 mmol/L 4.1 4.2 Chloride 97 - 105 mmol/L 102 103 CO2 22 - 30 mmol/L 19 (L) 22 Anion Gap 9 - 18 mmol/L 16 14 eGFR >=60 mL/min/1.73m 108 97 WSR 0 - 20 mm/hr 20 CRP <0.9 mg/dL 1.0 (H) MRI PANC/MIKE WO/W IVCON 04/09/2023 IMPRESSION: MULTILOCULATED CYSTIC STRUCTURE IN THE PANCREATIC NECK MAY REPRESENT AN IPMN A MUCINOUS CYSTIC NEOPLASM. THIS COULD BE FURTHER EVALUATED BY ENDOSCOPIC ULTRASOUND OR FOLLOW-UP STUDY IN 6 MONTHS. 9 MM UNIFORMLY ENHANCING NODULE IN THE ANTERIOR RIGHT LOBE OF THE LIVER MAY REPRESENT FOCAL NODULAR HYPERPLASIA OR A HEPATIC ADENOMA. THIS CAN BE FOLLOWED ON SUBSEQUENT IMAGING OBTAINED FOR FOLLOW-UP OF THE PANCREATIC CYSTIC LESION. CT ABD/PEL W IVCON 04/05/2023 IMPRESSION: No acute process in the abdomen or pelvis. 2.5 cm cystic lesion in the pancreatic head. Recommend further evaluation with MRI pancreas biliary protocol. ASSESSMENT/PLAN: 1. Elevated alkaline phosphatase level - ICD9: 790.5, ICD10: R74.8 (primary diagnosis) Elevated alk phos with high liver fraction and elevated LFTs which is worsening. Will check hepatitis testing and iron studies today. Referred to GI for further workup. Encouraged her to schedule first available appointment. Aside from 9mm nodule on liver, morphology appeared normal on MRI. Red flags for re-assessment reviewed with patient in detail. Continue to abstain from alcohol and tylenol. 2. Elevated LFTs - ICD9: 790.6, ICD10: R79.89 See above. 3. Pancreatic cyst - ICD9: 577.2, ICD10: K86.2 F/u with GI for further imaging vs biopsy. 4. Liver lesion - ICD9: 573.8, ICD10: K76.9 See above. Chelly Chacko MD documented in this encounter [facility] 04-12-2023 Miscellaneous Notes Patient notified of results and provider's instructions. Patient verbalizes understanding. Patient states that she had quit taking acetaminophen after last testing. Patient denies alcohol use. Patient takes some vitamin that starts with a N, but she cannot remember the name. Patient states that she takes it for sleep. Barbara Lam RN Message left for patient to return call and speak with a nurse to review provider's message with her. Patient's labs are not all back yet, but her CMP is showing worsening of her liver function and alk phos. With these findings would again recommend she abstain from tylenol or alcohol use. Please let me know if she has been taking large amounts of either of these. Please check to see if she is taking any supplements or herbal medications other that what is prescribed for her. Will add on workup to rule out hepatitis and hemochromatosis. With recent abnormal imaging of pancreas, will refer to GI for further workup as well. If she were to develop any new RUQ pain, itching, jaundice, fatigue, nausea, vomiting, loss of appetite would recommend ER evaluation. documented in this encounter [facility] 04-11-2023 Miscellaneous Notes Patient returned call and scheduled appt for 04/16/[address] Chacko to discuss recommendations. LM for patient to contact office to schedule OV with Ricco to discuss results. Rachelle Vieira MA Can schedule 20 minute OV to review imaging and go over recommendations. Patient telephoned and given message below. Agreeable to endoscopic US. Patient asking a bunch of questions on what she should do next. How concerned she should be. Asking if she should continue to not take tylenol. Would be happy to have a follow up with you to go over these results. Please advise. Unique Schuster LPN ----- Message from Chelly Chacko MD sent at 04/10/2023 11:50 AM EDT ----- MRI of the pancreas shows multiloculated cyst of the pancreatic neck which may represent a mucinous cystic neoplasm and could be further evaluated with endoscopic ultrasound or f/u MRI in 6 months. Also noted 9 mm enhancing nodule on the right lobe of liver which may be nodular hyperplasia or adenoma which are both benign. Can recheck this with imaging of her pancreas. I will be forwarding this back to her PCP for future management as this was found incidentally on workup from right groin pain. I do not believe these findings are related to that pain. documented in this encounter [facility] 04-09-2023 Note HNO ID: [id number] Author: Ludmila Fox RT(Bryant) Service: ? Author Type: Technologist Type: Progress Notes Filed: 04/09/2023 3:26 PM Note Text: Radiology Service Progress Note DATE OF SERVICE: April 09, 2023 TIME: 3:26 PM PATIENT IDENTITY VERIFICATION COMPLETED USING TWO (2) STANDARD IDENTIFIERS: Name and Date of confirmed by patient verbally. FALL SCREENING: Has the patient had 2 falls in the last year or 1 fall with injury or currently using an Ambulatory Assistive Device (Walker, Cane, Wheelchair, Crutches, etc.)? No PATIENT GENDER DATA: Female. status: : No status: NO. PATIENT RELEVANT IMPLANT DATA REVIEWED: Yes ALLERGIES: Reviewed and unchanged CONTRAST ALLERGY: NO. EXAM: MRI - CONTRAST TYPE: GROUP II PERIPHERAL IV DATA: Ambulatory: A peripheral IV was started in the Left upper extremity with a Angio cath: 22 gauge. RADIOLOGY DEPARTMENT: MR; Exam(s) Completed: Body: Pancreas/Biliary SIGNATURE: RT Hui(R) PATIENT NAME: Anastasia Garzon DATE: April 09, 2023 TIME: 3:26 PM [facility] 04-09-2023 History of Present illness Narrative Radiology Service Progress Note DATE OF SERVICE: April 09, 2023 TIME: 3:26 PM PATIENT IDENTITY VERIFICATION COMPLETED USING TWO (2) STANDARD IDENTIFIERS: Name and Date of confirmed by patient verbally. FALL SCREENING: Has the patient had 2 falls in the last year or 1 fall with injury or currently using an Ambulatory Assistive Device (Walker, Cane, Wheelchair, Crutches, etc.)? No PATIENT GENDER DATA: Female. status: : No status: NO. PATIENT RELEVANT IMPLANT DATA REVIEWED: Yes ALLERGIES: Reviewed and unchanged CONTRAST ALLERGY: NO. EXAM: MRI - CONTRAST TYPE: GROUP II PERIPHERAL IV DATA: Ambulatory: A peripheral IV was started in the Left upper extremity with a Angio cath: 22 gauge. RADIOLOGY DEPARTMENT: MR; Exam(s) Completed: Body: Pancreas/Biliary SIGNATURE: RT Hui(R) PATIENT NAME: Anastasia Garzon DATE: April 09, 2023 TIME: 3:26 PM documented in this encounter [facility] 04-05-2023 Miscellaneous Notes Patient calls and notified of results and providers instructions. Patient verbalizes understanding. Transferred to schedule MRI. CT scheduled for today. Tari Argueta RN Patient phoned, message left to call office back and ask for triage nurse for update. Please given both results/recommendations below when patient returns call. Unique Schuster LPN Blood work negative for signs of infection. Mild inflammation with borderline high CRP and ESR. Alk phos and LFTs mildly elevated. I do not believe this was contributing to her RLQ abdominal pain. Recommend she proceed with CT scan as ordered. Avoid tylenol and alcohol for elevated LFTs and alk phos. Will order repeat CMP and check alk phos isoenzyme to be completed in 2-4 weeks to see if this resolves. CT abdomen and pelvis is negative for acute process that would cause RLQ abdominal pain. Noted 2.5 cystic lesion on pancreatic head. Radiology recommending further evaluation with MRI pancreas. Will place order as requested. documented in this encounter [facility] 04-05-2023 Miscellaneous Notes See other TE 04/05/2023 for both results/recommendations. Unique Schuster LPN Blood work negative for signs of infection. Mild inflammation with borderline high CRP and ESR. Alk phos and LFTs mildly elevated. I do not believe this was contributing to her RLQ abdominal pain. Recommend she proceed with CT scan as ordered. Avoid tylenol and alcohol for elevated LFTs and alk phos. Will order repeat CMP and check alk phos isoenzyme to be completed in 2-4 weeks to see if this resolves. documented in this encounter [facility] 04-05-2023 Note HNO ID: [id number] Author: Roberta Pacheco RT(R) Service: ? Author Type: Landscape Maintenance [employer]ship Type: Progress Notes Filed: 04/05/2023 3:24 PM Note Text: Radiology Service Progress Note DATE OF SERVICE: April 05, 2023 TIME: 3:23 PM PATIENT IDENTITY VERIFICATION COMPLETED USING TWO (2) STANDARD IDENTIFIERS: Name and Date of confirmed by patient verbally. FALL SCREENING: Has the patient had 2 falls in the last year or 1 fall with injury or currently using an Ambulatory Assistive Device (Walker, Cane, Wheelchair, Crutches, etc.)? No PATIENT GENDER DATA: Female. status: : No status: NO. PATIENT RELEVANT IMPLANT DATA REVIEWED: Yes ALLERGIES: Reviewed and unchanged CONTRAST ALLERGY: NO. EXAM: CT -CONTRAST INDUCED NEPHROPATHY RISK FACTORS: Not applicable CREATININE: Creatinine Date Value Ref Range Status 04/03/2023 0.74 0.58 - 0.96 mg/dL Final 01/11/2021 0.73 0.58 - 0.96 mg/dL Final 06/04/2018 0.66 0.58 - 0.96 mg/dL Final Estimated Glomerular Filtration Rate Date Value Ref Range Status 04/03/2023 108 >=60 mL/min/1.73m? Final Comment: Estimated Glomerular Filtration Rate (eGFR) is calculated using the 2020 CKD-EPI creatinine equation. This equation utilizes serum creatinine, sex, and age as parameters. The creatinine assay has traceable calibration to isotope dilution-mass spectrometry. Refer to KDIGO guidelines for clinical interpretation. In patients with unstable renal function, e.g. those with acute kidney injury, the eGFR may not accurately reflect actual GFR. eGFR- Date Value Ref Range Status 01/11/2021 >60 Final P.O.C.T. RESULTS: POC done: Yes, See Lab Tab April 05, 2023 TREATMENT: N/A PERIPHERAL IV DATA: Ambulatory: A peripheral IV was started in the Left hand with a Angio cath: 22 gauge. RADIOLOGY DEPARTMENT: CT; Exam(s) Completed: Abdomen/Pelvis SIGNATURE: RT Olga(R) PATIENT NAME: Anastasia Garzon DATE: April 05, 2023 TIME: 3:23 PM [facility] 04-05-2023 History of Present illness Narrative Radiology Service Progress Note DATE OF SERVICE: April 05, 2023 TIME: 3:23 PM PATIENT IDENTITY VERIFICATION COMPLETED USING TWO (2) STANDARD IDENTIFIERS: Name and Date of confirmed by patient verbally. FALL SCREENING: Has the patient had 2 falls in the last year or 1 fall with injury or currently using an Ambulatory Assistive Device (Walker, Cane, Wheelchair, Crutches, etc.)? No PATIENT GENDER DATA: Female. status: : No status: NO. PATIENT RELEVANT IMPLANT DATA REVIEWED: Yes ALLERGIES: Reviewed and unchanged CONTRAST ALLERGY: NO. EXAM: CT -CONTRAST INDUCED NEPHROPATHY RISK FACTORS: Not applicable CREATININE: Creatinine Date Value Ref Range Status 04/03/2023 0.74 0.58 - 0.96 mg/dL Final 01/11/2021 0.73 0.58 - 0.96 mg/dL Final 06/04/2018 0.66 0.58 - 0.96 mg/dL Final Estimated Glomerular Filtration Rate Date Value Ref Range Status 04/03/2023 108 >=60 mL/min/1.73m Final Comment: Estimated Glomerular Filtration Rate (eGFR) is calculated using the 2020 CKD-EPI creatinine equation. This equation utilizes serum creatinine, sex, and age as parameters. The creatinine assay has traceable calibration to isotope dilution-mass spectrometry. Refer to KDIGO guidelines for clinical interpretation. In patients with unstable renal function, e.g. those with acute kidney injury, the eGFR may not accurately reflect actual GFR. eGFR- Date Value Ref Range Status 01/11/2021 >60 Final P.O.C.T. RESULTS: POC done: Yes, See Lab Tab April 05, 2023 TREATMENT: N/A PERIPHERAL IV DATA: Ambulatory: A peripheral IV was started in the Left hand with a Angio cath: 22 gauge. RADIOLOGY DEPARTMENT: CT; Exam(s) Completed: Abdomen/Pelvis SIGNATURE: RT Olga(R) PATIENT NAME: Anastasia Garzon DATE: April 05, 2023 TIME: 3:23 PM documented in this encounter [facility] 04-03-2023 Note HNO ID: [id number] Author: Chelly Chacko MD Service: ? Author Type: Physician Type: Progress Notes Filed: 04/03/2023 10:17 AM Note Text: Chief Complaint Patient presents with: post op pain HPI Anastasia Garzon is a 37 year old female who presents here today for Above Complaints.. Patient states that she has been having pain in right groin which started about 4 weeks ago without injury. Described as intermittent sharp pain, up to 10/10 at night, but is typically 2/10. States that this is in the location of her previous right inguinal hernia repair and radiates down her right leg to her foot. Exacerbated after bending and lifting at work. Treating with OTC tylenol and Motrin and heating pad which helps with her pain. 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 Denies fever/chills, erythema, swelling, bruising, nausea, vomiting, diarrhea, constipation, hematochezia, melena, abnormal vaginal bleeding/discharge. Patient is sexually active on OCP. LMP 9/ which was normally. Has been sexually active since then. Called her surgeon's office and they wanted her to follow up with our office first to make sure this isnt anything else before seeing her back for previous hernia repair. Still has appendix. Past medical history, appointments, medications, allergies reviewed. Previous Medical History PAST MEDICAL HISTORY Diagnosis Date Abdominal pain, epigastric Reflux Unspecified disease of pancreas 2004 Pancreatitis Previous Surgical History PAST SURGICAL HISTORY Procedure Laterality Date EGD TRANSORAL BIOPSY SINGLE/MULTIPLE 08/16/2005 LAPAROSCOPY SURG CHOLECYSTECTOMY 09/22/2004 Cholecystectomy, lap PAST SURGICAL HISTORY OF Right 06/2022 Hernia surgery, [facility] Family History FAMILY HISTORY Problem Relation Age of Onset Hypertension Mother Heart Father GI Sister Half-sister No Known Problems Sister No Known Problems Sister No Known Problems Sister No Known Problems Brother No Known Problems Brother Diabetes Maternal Grandmother Hypertension Maternal Grandmother Diabetes Paternal Grandmother unsure if she has Patient Allergies ALLERGIES Allergen Reactions Amoxicillin Itching Lactose Intolerant * Diarrhea Mirena [Levonorgest* Other: See Comments Mirena removed 6 mos after insertion due to cramping. Advised she is not a good candidate for another IUD Zithromax [Azithrom* Hives Current Medications Current Outpatient Medications on File Prior to Visit Medication Sig doxycycline (VIBRA-TABS) 100 mg tablet Take 1 tablet by mouth twice daily for 10 days. albuterol HFA (VENTOLIN HFA) 90 mcg/actuation inhaler Inhale 2 Puffs as instructed every 4 hours as needed for wheezing/shortness of breath. loratadine (CLARITIN) 10 mg tablet Take 1 tablet by mouth once daily. varenicline (CHANTIX) 1 mg tablet Take 1 tablet by mouth twice daily. varenicline (CHANTIX) 1 mg tablet Take 0.5 tablets by mouth once daily for 3 days, THEN 0.5 tablets twice daily for 4 days, THEN 1 tablet twice daily for 23 days. SARA 08/03, 21, 1-20 mg-mcg per tablet Take 1 tablet by mouth once daily. No current facility-administered medications on file prior to visit. Social History Social History Tobacco Use Smoking status: Former Packs/day: .3 Types: Cigarettes Quit date: 12/13/2022 Years since quittin.3 Smokeless tobacco: Never Tobacco comments: Currently on day 2 of not smoking. 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 General Appearance: Well appearing, alert, in no acute distress, well-hydrated, well nourished.. Skin: Skin color, texture, turgor normal, no suspicious rashes or lesions. Back:no pain to palpation of vertebrae, good flexion and extension, good range of motion, no muscle tenderness, reflexes are 2+ and symmetric, motor and sensory appear to be normal, negative SLR test, no evidence of scoliosis Lungs: Lungs clear to auscultation. No wheezing, rhonchi, rales.. Heart: RRR without murmur, gallop, or rubs. No ectopy. Abdomen: Abdomen soft. Bowel sounds normal. No masses, organomegaly, Negative CVA tenderness, Positive findings: tenderness moderate RLQ without guarding or rebound. Health Maintenance List Hepatitis B Vaccine(1 of 3 - 3-dose series) Never done Influenza Vaccine(1) due on 03/15/2023 Pap Testing due on 06/12/2023 HPV Testing due on 06/12/2023 DTaP,Tdap,Td Vaccine(1 - Tdap) due on 12/28/2023 Covid-19 Vaccine(1) due on 12/28/2023 Depression Assessment Completed Hepatitis C Screening Completed HIV Screening Completed HPV Vaccine (more content not included)... [facility] 04-03-2023 History of Present illness Narrative Chief Complaint Patient presents with: post op pain HPI Anastasia Garzon is a 37 year old female who presents here today for Above Complaints.. Patient states that she has been having pain in right groin which started about 4 weeks ago without injury. Described as intermittent sharp pain, up to 10/10 at night, but is typically 2/10. States that this is in the location of her previous right inguinal hernia repair and radiates down her right leg to her foot. Exacerbated after bending and lifting at work. Treating with OTC tylenol and Motrin and heating pad which helps with her pain. 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 Denies fever/chills, erythema, swelling, bruising, nausea, vomiting, diarrhea, constipation, hematochezia, melena, abnormal vaginal bleeding/discharge. Patient is sexually active on OCP. LMP 03/15 which was normally. Has been sexually active since then. Called her surgeon's office and they wanted her to follow up with our office first to make sure this isnt anything else before seeing her back for previous hernia repair. Still has appendix. Past medical history, appointments, medications, allergies reviewed. Previous Medical History PAST MEDICAL HISTORY Diagnosis Date Abdominal pain, epigastric Reflux Unspecified disease of pancreas 2004 Pancreatitis Previous Surgical History PAST SURGICAL HISTORY Procedure Laterality Date EGD TRANSORAL BIOPSY SINGLE/MULTIPLE 08/16/2005 LAPAROSCOPY SURG CHOLECYSTECTOMY 09/22/2004 Cholecystectomy, lap PAST SURGICAL HISTORY OF Right 06/2022 Hernia surgery, [facility] Family History FAMILY HISTORY Problem Relation Age of Onset Hypertension Mother Heart Father GI Sister Half-sister No Known Problems Sister No Known Problems Sister No Known Problems Sister No Known Problems Brother No Known Problems Brother Diabetes Maternal Grandmother Hypertension Maternal Grandmother Diabetes Paternal Grandmother unsure if she has Patient Allergies ALLERGIES Allergen Reactions Amoxicillin Itching Lactose Intolerant * Diarrhea Mirena [Levonorgest* Other: See Comments Mirena removed 6 mos after insertion due to cramping. Advised she is not a good candidate for another IUD Zithromax [Azithrom* Hives Current Medications Current Outpatient Medications on File Prior to Visit Medication Sig doxycycline (VIBRA-TABS) 100 mg tablet Take 1 tablet by mouth twice daily for 10 days. albuterol HFA (VENTOLIN HFA) 90 mcg/actuation inhaler Inhale 2 Puffs as instructed every 4 hours as needed for wheezing/shortness of breath. loratadine (CLARITIN) 10 mg tablet Take 1 tablet by mouth once daily. varenicline (CHANTIX) 1 mg tablet Take 1 tablet by mouth twice daily. varenicline (CHANTIX) 1 mg tablet Take 0.5 tablets by mouth once daily for 3 days, THEN 0.5 tablets twice daily for 4 days, THEN 1 tablet twice daily for 23 days. SARA 08/03, , 1-20 mg-mcg per tablet Take 1 tablet by mouth once daily. No current facility-administered medications on file prior to visit. Social History Social History Tobacco Use Smoking status: Former Packs/day: .3 Types: Cigarettes Quit date: 12/13/2022 Years since quittin.3 Smokeless tobacco: Never Tobacco comments: Currently on day 2 of not smoking. 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 Skin: Skin color, texture, turgor normal, no suspicious rashes or lesions. Back:no pain to palpation of vertebrae, good flexion and extension, good range of motion, no muscle tenderness, reflexes are 2+ and symmetric, motor and sensory appear to be normal, negative SLR test, no evidence of scoliosis Lungs: Lungs clear to auscultation. No wheezing, rhonchi, rales.. Heart: RRR without murmur, gallop, or rubs. No ectopy. Abdomen: Abdomen soft. Bowel sounds normal. No masses, organomegaly, Negative CVA tenderness, Positive findings: tenderness moderate RLQ without guarding or rebound. Health Maintenance List Hepatitis B Vaccine(1 of 3 - 3-dose series) Never done Influenza Vaccine(1) due on 03/15/2023 Pap Testing due on 06/12/2023 HPV Testing due on 06/12/2023 DTaP,Tdap,Td Vaccine(1 - Tdap) due on 12/28/2023 Covid-19 Vaccine(1) due on 12/28/2023 Depression Assessment Completed Hepatitis C Screening Completed HIV Screening Completed HPV Vaccine Aged Out Data reviewed Component Latest Ref Rng & Units 04/03/2023 GLUCOSE UA (POCT) Negative mg/dL Negative BILIRUBIN UA (POCT) Negative Small (A) KETONE UA (POCT) Negative mg/dL Negative SPECIFIC GRAVITY UA (POCT) 1.005 - 1.030 >=1.030 HEMOGLOBIN/BLOOD UA (POCT) Negative Negative PH UA (POCT) 4.5 - 8.0 6.0 PROTEIN UA (POCT) Negative mg/dL 30 (A) UROBILINOGEN UA (POCT) Normal E.U./dL 1.0 NITRITE UA (POCT) Negative Negative LEUKOCYTES UA (POCT) Negative Negative COLOR UA (POCT) Dark yellow CLARITY UA (POCT) Clear Component Latest Ref Rng & Units 04/03/2023 , Urine neg - pos neg Quality Check yes/no Yes ASSESSMENT/PLAN: 1. RLQ abdominal pain - ICD9: 789.03, ICD10: R10.31 UA negative for infection. Urine HCG negative for . Obtain STAT CT to rule out appendicitis vs ovarian cyst vs torsion vs diverticulitis vs infection. If workup negative, will refer back to her surgeon to discuss mesh vs scar tissue as possible cause. Continue OTC analgesics for pain. Red flags for re-assessment reviewed with patient in detail. - HCG QUAL UR B/O - UA DIP, URINE (POC) - CBC + DIFF - COMP METABOLIC PANEL - SED RATE WESTERGREN - C-REACTIVE PROTEIN (CRP) - CT ABD/PEL W IVCON - IV CONTRAST (RADIOLOGY PROCEDURE) - ENTERIC CONTRAST (RADIOLOGY PROCEDURE) Chelly Chacko MD documented in this encounter [facility] 03-27-2023 Note HNO ID: [id number] Author: Tootie Romero APRN.RESEARCH SOFTWARE ENGINEER Service: ? Author Type: Nurse Practitioner Type: Progress Notes Filed: 03/27/2023 12:23 PM Note Text: This is a 37 year old female who presents today with: Patient presents with: Follow Up: Urgent care follow up HISTORY OF PRESENT ILLNESS: Anastasia Garzon is a 37 year old female. Patient presents with: Follow Up: Urgent care follow up Urgent care follow up. Was seen in the medical center on 03/19 and 03/22.-Chest congestion, sore throat, sinus symptoms, and ear pain for 6 days. Has had 2 negative strep test. Negative COVID/flu/RSV. Started on prednisone 4 mg, Tessalon Perles, and loratadine 10 mg. Still having on going symptoms. Refers that the cough is productive at times and worse at night time. Hurts to take a deep breath. No fever or chills. PAST MEDICAL HISTORY: PAST MEDICAL HISTORY Diagnosis Date Abdominal pain, epigastric Reflux Unspecified disease of pancreas 2004 Pancreatitis PAST SURGICAL HISTORY Procedure Laterality Date EGD TRANSORAL BIOPSY SINGLE/MULTIPLE 08/16/2005 LAPAROSCOPY SURG CHOLECYSTECTOMY 09/22/2004 Cholecystectomy, lap PAST SURGICAL HISTORY OF Right 06/2022 Hernia surgery, [facility] ALLERGIES Amoxicillin, Lactose Intolerant [Other], Mirena [Levonorgestrel], and Zithromax [Azithromycin] MEDICATIONS Current Outpatient Medications Medication Sig loratadine (CLARITIN) 10 mg tablet Take 1 tablet by mouth once daily. predniSONE (DELTASONE) 20 mg tablet Take 2 tablets by mouth once daily for 5 days. benzonatate (TESSALON PERLES) 100 mg capsule Take 1 capsule by mouth three times daily as needed for up to 7 days. varenicline (CHANTIX) 1 mg tablet Take 1 tablet by mouth twice daily. varenicline (CHANTIX) 1 mg tablet Take 0.5 tablets by mouth once daily for 3 days, THEN 0.5 tablets twice daily for 4 days, THEN 1 tablet twice daily for 23 days. SARA 08/03, 21, 1-20 mg-mcg per tablet Take 1 tablet by mouth once daily. No current facility-administered medications for this visit. FAMILY HISTORY Problem Relation Age of Onset Hypertension Mother Heart Father GI Sister Half-sister No Known Problems Sister No Known Problems Sister No Known Problems Sister No Known Problems Brother No Known Problems Brother Diabetes Maternal Grandmother Hypertension Maternal Grandmother Diabetes Paternal Grandmother unsure if she has Social History Tobacco Use Smoking status: Every Day Packs/day: .3 Types: Cigarettes Smokeless tobacco: Never Tobacco comments: Currently on day 2 of not smoking. 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 No hematochezia/melena. No heartburn or reflux symptoms. : No history of dysuria, frequency or incontinence MUSCULOSKELETAL: Negative for joint pain or swelling. SKIN: Negative for lesions, rash, and itching ENDOCRINE: Negative for cold or heat intolerance, polyuria, polydipsia and goiter NEURO: No history of headaches, syncope, paralysis, seizures or tremors MOOD: Negative for depression, anxiety, or suicidal ideation. EXAM: BP 122/82 Pulse 85 Resp 16 Wt 82.1 kg (181 lb) LMP 03/15/2023 (Exact Date) SpO2 98% BMI 27.93 kg/m? PHYSICAL EXAM: General Appearance: Well appearing, alert, in no acute distress, well-hydrated, well nourished. Skin: Skin color, texture, turgor normal, no suspicious rashes or lesions. Head: Normocephalic, no masses, lesions, tenderness or abnormalities. Eyes: Anicteric sclera. Pupils are equally round and reactive to light. Extraocular movements are intact. Ears: External ears normal, canals clear, TM's dull. Nose/Sinuses: Nares normal, septum midline, mucosa normal, no drainage or sinus tenderness. Oropharynx: Lips, mucosa, and tongue normal, teeth and gums normal, oropharynx normal. Neck: Supple, no adenopathy; thyroid symmetric, normal size, no bruits. Lungs: + mild wheezing Heart: RRR without murmur, gallop, or rubs. No ectopy. Extremities: No deformities, edema, skin discoloration, clubbing or cyanosis. Good capillary refill. Peripheral Pulses: Normal, Capillary refill <2secs, strong peripheral pulses, Pulses palpable. Neurologic: Gait normal. Reflexes normal and symmetric. Sensation grossly intact. ASSESSMENT/PLAN: 1. Bronchitis - ICD9: 490, ICD10: J40 (primary diagnosis) - Start Doxycycline - May use albuterol as needed for SOB or wheezing. - Continue supportive care at home, may use OTC cold (more content not included)... [facility] 03-27-2023 Instructions Tootie Romero APRN.MARIIA - 03/27/2023 8:31 AM EDT 1.Start Doxycycline, take with food. 2. May use albuterol inhaler as needed for shortness of breath and wheezing. 3. May use Diflucan as needed for vaginal symptoms. 4. May use over the counter cold and cough medication as needed. 5. Stay well hydrated. Follow up as needed. documented in this encounter [facility] 03-27-2023 History of Present illness Narrative This is a 37 year old female who presents today with: Patient presents with: Follow Up: Urgent care follow up HISTORY OF PRESENT ILLNESS: Anastasia Garzon is a 37 year old female. Patient presents with: Follow Up: Urgent care follow up Urgent care follow up. Was seen in the medical center on 03/19 and 03/22.-Chest congestion, sore throat, sinus symptoms, and ear pain for 6 days. Has had 2 negative strep test. Negative COVID/flu/RSV. Started on prednisone 4 mg, Tessalon Perles, and loratadine 10 mg. Still having on going symptoms. Refers that the cough is productive at times and worse at night time. Hurts to take a deep breath. No fever or chills. PAST MEDICAL HISTORY: PAST MEDICAL HISTORY Diagnosis Date Abdominal pain, epigastric Reflux Unspecified disease of pancreas 2004 Pancreatitis PAST SURGICAL HISTORY Procedure Laterality Date EGD TRANSORAL BIOPSY SINGLE/MULTIPLE 08/16/2005 LAPAROSCOPY SURG CHOLECYSTECTOMY 09/22/2004 Cholecystectomy, lap PAST SURGICAL HISTORY OF Right 06/2022 Hernia surgery, [facility] ALLERGIES Amoxicillin, Lactose Intolerant [Other], Mirena [Levonorgestrel], and Zithromax [Azithromycin] MEDICATIONS Current Outpatient Medications Medication Sig loratadine (CLARITIN) 10 mg tablet Take 1 tablet by mouth once daily. predniSONE (DELTASONE) 20 mg tablet Take 2 tablets by mouth once daily for 5 days. benzonatate (TESSALON PERLES) 100 mg capsule Take 1 capsule by mouth three times daily as needed for up to 7 days. varenicline (CHANTIX) 1 mg tablet Take 1 tablet by mouth twice daily. varenicline (CHANTIX) 1 mg tablet Take 0.5 tablets by mouth once daily for 3 days, THEN 0.5 tablets twice daily for 4 days, THEN 1 tablet twice daily for 23 days. SARA 08/03, 21, 1-20 mg-mcg per tablet Take 1 tablet by mouth once daily. No current facility-administered medications for this visit. FAMILY HISTORY Problem Relation Age of Onset Hypertension Mother Heart Father GI Sister Half-sister No Known Problems Sister No Known Problems Sister No Known Problems Sister No Known Problems Brother No Known Problems Brother Diabetes Maternal Grandmother Hypertension Maternal Grandmother Diabetes Paternal Grandmother unsure if she has Social History Tobacco Use Smoking status: Every Day Packs/day: .3 Types: Cigarettes Smokeless tobacco: Never Tobacco comments: Currently on day 2 of not smoking. 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 No hematochezia/melena. No heartburn or reflux symptoms. : No history of dysuria, frequency or incontinence MUSCULOSKELETAL: Negative for joint pain or swelling. SKIN: Negative for lesions, rash, and itching ENDOCRINE: Negative for cold or heat intolerance, polyuria, polydipsia and goiter NEURO: No history of headaches, syncope, paralysis, seizures or tremors MOOD: Negative for depression, anxiety, or suicidal ideation. EXAM: BP 122/82 Pulse 85 Resp 16 Wt 82.1 kg (181 lb) LMP 03/15/2023 (Exact Date) SpO2 98% BMI 27.93 kg/m PHYSICAL EXAM: General Appearance: Well appearing, alert, in no acute distress, well-hydrated, well nourished. Skin: Skin color, texture, turgor normal, no suspicious rashes or lesions. Head: Normocephalic, no masses, lesions, tenderness or abnormalities. Eyes: Anicteric sclera. Pupils are equally round and reactive to light. Extraocular movements are intact. Ears: External ears normal, canals clear, TM's dull. Nose/Sinuses: Nares normal, septum midline, mucosa normal, no drainage or sinus tenderness. Oropharynx: Lips, mucosa, and tongue normal, teeth and gums normal, oropharynx normal. Neck: Supple, no adenopathy; thyroid symmetric, normal size, no bruits. Lungs: + mild wheezing Heart: RRR without murmur, gallop, or rubs. No ectopy. Extremities: No deformities, edema, skin discoloration, clubbing or cyanosis. Good capillary refill. Peripheral Pulses: Normal, Capillary refill <2secs, strong peripheral pulses, Pulses palpable. Neurologic: Gait normal. Reflexes normal and symmetric. Sensation grossly intact. ASSESSMENT/PLAN: 1. Bronchitis - ICD9: 490, ICD10: J40 (primary diagnosis) - Start Doxycycline - May use albuterol as needed for SOB or wheezing. - Continue supportive care at home, may use OTC cold and cough medication. - DOXYCYCLINE HYCLATE 100 MG TABLET - ALBUTEROL SULFATE HFA 90 MCG/ACTUATION AEROSOL INHALER 2. Vaginal yeast infection - ICD9: 112.1, ICD10: B37.31 - May use Diflucan if she develops vaginal yeast symptoms due to antibiotics. - FLUCONAZOLE 150 MG TABLET Follow up if no improvement. Discussed treatment plan and patient voices understanding. Patient's questions answered appropriately. Medications and potential side effects were discussed and patient voices understanding. Tootie Romero APRN.MARIIA This note was partially generated using [employer] voice recognition system. Note was reviewed for accuracy. There may be minor misspellings or grammar miscues with [employer] voice recognition. documented in this encounter [facility] 03-22-2023 Note HNO ID: [id number] Author: Isabel Irby APRN.MARIIA Service: ? Author Type: Nurse Practitioner Type: Progress Notes Filed: 03/22/2023 10:02 AM Note Text: CC: Patient presents with: Cough: Chest congestin, bilateral ear pain, ST x6 days HPI: Huylynnamy Garzon is a 37 year old female who presents to the office with complaint of chest congestion, sore throat, sinus symptoms, and ear symptoms for 6 days. Symptoms are worsening Associated symptoms includes sore throat. Denies fever, nausea, vomiting , and diarrhea. Treatments tried include Guaifenesin/Mucinex with minor relief of symptoms. Sick contacts: unknown. History of asthma, frequent episodes of bronchitis, chronic bronchitis, bronchiectasis or COPD: No Smoker: No Seasonal/environmental allergies: No The ROS is otherwise negative. The patient's pmh, medications, allergies, and past visits are reviewed. PHYSICAL EXAM: BP 132/87 Pulse 98 Temp 36.1 ?C (97 ?F) Resp 18 Wt 80.9 kg (178 lb 6.4 oz) LMP 10/17/2022 SpO2 96% BMI 27.53 kg/m? General appearance: alert, cooperative, pleasant, in no acute distress Head: Normocephalic Eyes: EOM's intact, conjunctiva pink and moist, no icterus, sclera white, non-injected Ears: Right ear: External ear/canal- Normal, TM - clear with good landmarks. Left ear: External ear/canal- Normal, TM - clear with good landmarks Oropharynx:mild erythema, without exudates present Heart: Negative. RRR without obvious murmur, gallop, or rubs. No ectopy. Lungs: clear to auscultation, without rales or wheeze, good air exchange PAST MEDICAL HISTORY Diagnosis Date Abdominal pain, epigastric Reflux Unspecified disease of pancreas 2004 Pancreatitis PAST SURGICAL HISTORY Procedure Laterality Date EGD TRANSORAL BIOPSY SINGLE/MULTIPLE 08/16/2005 LAPAROSCOPY SURG CHOLECYSTECTOMY 09/22/2004 Cholecystectomy, lap PAST SURGICAL HISTORY OF Right 06/2022 Hernia surgery, [facility] ALLERGIES Amoxicillin, Lactose Intolerant [Other], Mirena [Levonorgestrel], and Zithromax [Azithromycin] MEDICATIONS varenicline (CHANTIX) 1 mg tablet Take 1 tablet by mouth twice daily. varenicline (CHANTIX) 1 mg tablet Take 0.5 tablets by mouth once daily for 3 days, THEN 0.5 tablets twice daily for 4 days, THEN 1 tablet twice daily for 23 days. SARA 1/20, 21, 1-20 mg-mcg per tablet Take 1 tablet by mouth once daily. FAMILY HISTORY Problem Relation Age of Onset Hypertension Mother Heart Father GI Sister Half-sister No Known Problems Sister No Known Problems Sister No Known Problems Sister No Known Problems Brother No Known Problems Brother Diabetes Maternal Grandmother Hypertension Maternal Grandmother Diabetes Paternal Grandmother unsure if she has Social History Tobacco Use Smoking status: Every Day Packs/day: .3 Types: Cigarettes Smokeless tobacco: Never Tobacco comments: Currently on day 2 of not smoking. 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, Crystal Meth Comment: sober 3 years ASSESSMENT/PLAN: 1. Sore throat - ICD9: 462, ICD10: J02.9 (primary diagnosis) - STREP A MOLECULAR (POC) - neg 2. Acute cough - ICD9: 786.2, ICD10: R05.1 - PREDNISONE 20 MG TABLET - BENZONATATE 100 MG CAPSULE 3. Sinus congestion - ICD9: 478.19, ICD10: R09.81 - LORATADINE 10 MG TABLET - PREDNISONE 20 MG TABLET Prescription instructions reviewed with patient as applicable. Potential red flag symptoms discussed with the patient. Reviewed appropriate action plan to take if red flag symptoms occur. Patient agreeable to treatment plan. Isabel Irby APRN.[facility] 03-22-2023 History of Present illness Narrative CC: Patient presents with: Cough: Chest congestin, bilateral ear pain, ST x6 days HPI: Anastasia Garzon is a 37 year old female who presents to the office with complaint of chest congestion, sore throat, sinus symptoms, and ear symptoms for 6 days. Symptoms are worsening Associated symptoms includes sore throat. Denies fever, nausea, vomiting , and diarrhea. Treatments tried include Guaifenesin/Mucinex with minor relief of symptoms. Sick contacts: unknown. History of asthma, frequent episodes of bronchitis, chronic bronchitis, bronchiectasis or COPD: No Smoker: No Seasonal/environmental allergies: No The ROS is otherwise negative. The patient's pmh, medications, allergies, and past visits are reviewed. PHYSICAL EXAM: BP 132/87 Pulse 98 Temp 36.1 C (97 F) Resp 18 Wt 80.9 kg (178 lb 6.4 oz) LMP 10/17/2022 SpO2 96% BMI 27.53 kg/m General appearance: alert, cooperative, pleasant, in no acute distress Head: Normocephalic Eyes: EOM's intact, conjunctiva pink and moist, no icterus, sclera white, non-injected Ears: Right ear: External ear/canal- Normal, TM - clear with good landmarks. Left ear: External ear/canal- Normal, TM - clear with good landmarks Oropharynx:mild erythema, without exudates present Heart: Negative. RRR without obvious murmur, gallop, or rubs. No ectopy. Lungs: clear to auscultation, without rales or wheeze, good air exchange PAST MEDICAL HISTORY Diagnosis Date Abdominal pain, epigastric Reflux Unspecified disease of pancreas 2004 Pancreatitis PAST SURGICAL HISTORY Procedure Laterality Date EGD TRANSORAL BIOPSY SINGLE/MULTIPLE 08/16/2005 LAPAROSCOPY SURG CHOLECYSTECTOMY 09/22/2004 Cholecystectomy, lap PAST SURGICAL HISTORY OF Right 06/2022 Hernia surgery, [facility] ALLERGIES Amoxicillin, Lactose Intolerant [Other], Mirena [Levonorgestrel], and Zithromax [Azithromycin] MEDICATIONS varenicline (CHANTIX) 1 mg tablet Take 1 tablet by mouth twice daily. varenicline (CHANTIX) 1 mg tablet Take 0.5 tablets by mouth once daily for 3 days, THEN 0.5 tablets twice daily for 4 days, THEN 1 tablet twice daily for 23 days. SARA 1/20, 21, 1-20 mg-mcg per tablet Take 1 tablet by mouth once daily. FAMILY HISTORY Problem Relation Age of Onset Hypertension Mother Heart Father GI Sister Half-sister No Known Problems Sister No Known Problems Sister No Known Problems Sister No Known Problems Brother No Known Problems Brother Diabetes Maternal Grandmother Hypertension Maternal Grandmother Diabetes Paternal Grandmother unsure if she has Social History Tobacco Use Smoking status: Every Day Packs/day: .3 Types: Cigarettes Smokeless tobacco: Never Tobacco comments: Currently on day 2 of not smoking. 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, Crystal Meth Comment: sober 3 years ASSESSMENT/PLAN: 1. Sore throat - ICD9: 462, ICD10: J02.9 (primary diagnosis) - STREP A MOLECULAR (POC) - neg 2. Acute cough - ICD9: 786.2, ICD10: R05.1 - PREDNISONE 20 MG TABLET - BENZONATATE 100 MG CAPSULE 3. Sinus congestion - ICD9: 478.19, ICD10: R09.81 - LORATADINE 10 MG TABLET - PREDNISONE 20 MG TABLET Prescription instructions reviewed with patient as applicable. Potential red flag symptoms discussed with the patient. Reviewed appropriate action plan to take if red flag symptoms occur. Patient agreeable to treatment plan. Isabel Irby APRN.MARIIA documented in this encounter [facility] 03-19-2023 Note HNO ID: [id number] Author: Jluis See APRN.CNP Service: ? Author Type: Nurse Practitioner Type: Progress Notes Filed: 03/19/2023 2:15 PM Note Text: Subjective HPI Patient presents to urgent care with chief complaint of upper respiratory tract like infection. Duration of symptoms 2 days. Associated symptoms sore throat, nasal congestion, nasal discharge and nonproductive cough. Patient denies the use of any [id number] medications or home remedies for symptom management. Patient states recent sick contacts with similar signs and symptoms. Patient denies any productive cough, fever, chest pain, shortness of breath, pleuritic pain, rash, abdominal pain, nausea, vomiting or change in bowel or bladder habit. Past medical history prescription medication use allergies reviewed. .Patient presents with: Sore Throat: ST, neck pain, ear pain and cough x 2 days PAST MEDICAL HISTORY Diagnosis Date Abdominal pain, epigastric Reflux Unspecified disease of pancreas 2004 Pancreatitis PAST SURGICAL HISTORY Procedure Laterality Date EGD TRANSORAL BIOPSY SINGLE/MULTIPLE 08/16/2005 LAPAROSCOPY SURG CHOLECYSTECTOMY 09/22/2004 Cholecystectomy, lap PAST SURGICAL HISTORY OF Right 06/2022 Hernia surgery, [facility] ALLERGIES Amoxicillin, Lactose Intolerant [Other], Mirena [Levonorgestrel], and Zithromax [Azithromycin] MEDICATIONS varenicline (CHANTIX) 1 mg tablet Take 1 tablet by mouth twice daily. SARA 08/03, 21, 1-20 mg-mcg per tablet Take 1 tablet by mouth once daily. varenicline (CHANTIX) 1 mg tablet Take 0.5 tablets by mouth once daily for 3 days, THEN 0.5 tablets twice daily for 4 days, THEN 1 tablet twice daily for 23 days. FAMILY HISTORY Problem Relation Age of Onset Hypertension Mother Heart Father GI Sister Half-sister No Known Problems Sister No Known Problems Sister No Known Problems Sister No Known Problems Brother No Known Problems Brother Diabetes Maternal Grandmother Hypertension Maternal Grandmother Diabetes Paternal Grandmother unsure if she has Social History Tobacco Use Smoking status: Every Day Packs/day: .3 Types: Cigarettes Smokeless tobacco: Never Tobacco comments: Currently on day 2 of not smoking. 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 Review of Systems Constitutional: Negative for chills, fever and malaise/fatigue. HENT: Positive for ear pain and sore throat. Negative for congestion, ear discharge and sinus pain. Eyes: Negative for blurred vision, pain, discharge and redness. Respiratory: Positive for cough. Negative for hemoptysis, sputum production, shortness of breath, wheezing and stridor. Cardiovascular: Negative for chest pain. Gastrointestinal: Negative for abdominal pain, diarrhea, nausea and vomiting. Musculoskeletal: Negative for myalgias. Skin: Negative for itching and rash. Neurological: Positive for headaches. Negative for dizziness. Objective Physical Exam Constitutional: General: She is not in acute distress. Appearance: She is not diaphoretic. HENT: Head: Normocephalic. Jaw: No trismus, tenderness, swelling or pain on movement. Nose: Congestion present. Mouth/Throat: Mouth: Mucous membranes are moist. Pharynx: Oropharynx is clear. Uvula midline. No pharyngeal swelling, oropharyngeal exudate, posterior oropharyngeal erythema or uvula swelling. Eyes: Conjunctiva/sclera: Conjunctivae normal. Pupils: Pupils are equal, round, and reactive to light. Cardiovascular: Rate and Rhythm: Normal rate and regular rhythm. Heart sounds: Normal heart sounds. Pulmonary: Effort: Pulmonary effort is normal. No tachypnea, accessory muscle usage or respiratory distress. Breath sounds: Normal breath sounds. No stridor. No wheezing, rhonchi or rales. Abdominal: General: There is no distension. Palpations: Abdomen is soft. Tenderness: There is no abdominal tenderness. There is no guarding or rebound. Musculoskeletal: Cervical back: Normal range of motion and neck supple. No edema, erythema, rigidity or tenderness. No pain with movement. Normal range of motion. Lymphadenopathy: Cervical: No cervical adenopathy. Skin: General: Skin is warm and dry. Neurological: Mental Status: She is alert and oriented to person, place, and time. ASSESSMENT/PLAN: 1. Sore throat - ICD9: 462, ICD10: J02.9 (primary diagnosis) - STREP A MOLECULAR (POC) - COVID AND INFLUENZA A/B AND RSV NAAT, ROUTINE 2. Viral illness - ICD9: 079.99, ICD10: B34.9 - COVID AND INFLUENZA A/B AND RSV NAAT, ROUTINE Strep test negative. Test for COVID-19 and influenza. Red flags prompt reevaluation discussed. Patie (more content not included)... [facility] 02-12-2023 Miscellaneous Notes The following approved medication requests have been transmitted electronically. Requested Prescriptions Pending Prescriptions Disp Refills varenicline (CHANTIX) 1 mg tablet 60 tablet 1 Sig: Take 1 tablet by mouth twice daily. Juan Antonio Millan APRN.MARIIA Patient has been identified by name and date of : Yes, Provider Dr. Velazquez Date 02/12/23 Time 10:20 am Patient phones for refill(s): Requested Prescriptions Pending Prescriptions Disp Refills varenicline (CHANTIX) 1 mg tablet 60 tablet 1 Sig: Take 1 tablet by mouth twice daily. Date of last office visit in primary care: 12/27/22 Last 2 Encounter Wt Readings: Date: Wt: 12/27/2022 80.4 kg (177 lb 3.2 oz) 12/19/2022 83.9 kg (185 lb) Previous labs/tests for medication: Not applicable Thank you. Sydnee WALKER documented in this encounter [facility] 02-12-2023 Miscellaneous Notes Last office visit: 12/27/22 F/u scheduled: none Dali Wiggins Ma documented in this encounter [facility] 12-27-2022 Note HNO ID: [id number] Author: Korina Velazquez MD Service: ? Author Type: Physician Type: Progress Notes Filed: 12/27/2022 2:38 PM Note Text: Chief Complaint Patient presents with: Wellness HPI Anastasia Garzon is a 37 year old female who presents here today for annual wellness. Pt seen acutely by other Providers and in Express care. Last Wellness by this office on 05/02/2020. 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 Doing online schooling, getting Bachelors in Behavioral Health. Living with her boyfriend and 10 year old child in [place]. Tobacco - Smoking about 0.5 ppd, was given Chantix to help her quit smoking. Currently on day 2 of not smoking. Feels that the Chantix has side effects of not making her feel well; insomnia. 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 GI/Uro - Denies any stomach issues, hx of IBS, notes not having real good BM's. Was taking a Probiotic, but unable to afford this. Denies any urinary issues. Follows with [facility]. Cardio - Denies any chest pain, so or dizziness. Diet/Exercise - Tries to eat good, but life gets busy and notes that fast food is fast. Eating out isn't always affordable. Does try to eat a balanced diet, reducing carbs and salads. 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 Does occasionally walk. Headaches/TMJ - Hx of intermittent headaches, feels this is related to the work she's doing. Thinks she may need a massage. Hx of TMJ, previously wore a mouthguard to help with grinding and clenching, but she broke it. She needs to buy a new one. Feels that the Chantix may make her clench/grind more. Avoids mind altering medications. Depression - Chronic seasonal depression. Takes B complex vitamins. Currently on no medications. Depression screening tool completed and reviewed. Based on score and interview, patient is not at risk for depression. Screening tool discussed with patient, and I recommended no further intervention at this time. Rash - Seen in [facility] on 12/19/22 for conjuctivitis of both eyes and a rash. Was treated with Prednisone, would like to have this looked at. Ears - Seen by Arabella Laguna CNP on 11/14/22 for right ear infection, treated with Omnicef. Wants to have both ears looked at. She's had two ear infections in the past year and at times her right ear will itch and bother ear. Sleep - Feels that the Chantix is making her not sleep well, with some vivid dreams. At one time did quit taking it, but started smoking again. She re-started the medication and continues to have issues not sleeping well. HM - Declines Covid vaccines. Declines feeling down, depressed or hopeless. Declines Pneumo vaccine. Declines Tdap. Past medical history, appointments, medications, allergies reviewed. Previous Medical History PAST MEDICAL HISTORY Diagnosis Date Abdominal pain, epigastric Reflux Unspecified disease of pancreas 2004 Pancreatitis Previous Surgical History PAST SURGICAL HISTORY Procedure Laterality Date EGD TRANSORAL BIOPSY SINGLE/MULTIPLE 08/16/2005 LAPAROSCOPY SURG CHOLECYSTECTOMY 09/22/2004 Cholecystectomy, lap PAST SURGICAL HISTORY OF Right 06/2022 Hernia surgery, [facility] Family History FAMILY HISTORY Problem Relation Age of Onset Hypertension Mother Heart Father GI Sister Half-sister No Known Problems Sister No Known Problems Sister No Known Problems Sister No Known Problems Brother No Known Problems Brother Diabetes Maternal Grandmother Hypertension Maternal Grandmother Diabetes Paternal Grandmother unsure if she has Patient Allergies ALLERGIES Allergen Reactions Amoxicillin Itching Lactose Intolerant * Diarrhea Mirena [Levonorgest* Other: See Comments Mirena removed 6 mos after insertion due to cramping. Advised she is not a good candidate for another IUD Zithromax [Azithrom* Hives Current Medications Current Outpatient Medications on File Prior to Visit Medication Sig predniSONE (DELTASONE) 10 mg tablet Take 4 tabs daily for 3 days, then 2 tabs daily for 3 days, then 1 tab daily for 3 days with food. trimethoprim-polymyxin (POLYTRIM) 10,000 unit- 1 mg/mL ophthalmic solution Use 1 Drop in both eyes every 4 hours for 7 days. varenicline (CHANTIX) 1 mg tablet Take 0.5 tablets by mouth once daily for 3 days, THEN 0.5 tablets twice daily for 4 days, THEN 1 tablet twice daily for 23 days. SARA 08/03, 21, 1-20 mg-mcg per tablet Take 1 tablet by mouth once daily. meclizine (ANTIVERT) 25 mg tab Take 1 tablet by mouth every 6 hours as needed (dizziness). varenicline (CHANTIX) 1 mg tablet Take 1 tablet by mouth twice daily. No current facility-administered medications on file prior to visit. Social History Social History Tobacco Use Smoking status: Every Day Packs/day: 0.30 Types: Cigarettes Smokeless tobacco: Never Tobacco (more content not included)... [facility] 12-27-2022 History of Present illness Narrative Chief Complaint Patient presents with: Wellness HPI Anastasia Denilson Garzon is a 37 year old female who presents here today for annual wellness. Pt seen acutely by other Providers and in Express care. Last Wellness by this office on 05/02/2020. 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 Doing online schooling, getting Bachelors in Behavioral Health. Living with her boyfriend and 10 year old child in [place]. Tobacco - Smoking about 0.5 ppd, was given Chantix to help her quit smoking. Currently on day 2 of not smoking. Feels that the Chantix has side effects of not making her feel well; insomnia. 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 GI/Uro - Denies any stomach issues, hx of IBS, notes not having real good BM's. Was taking a Probiotic, but unable to afford this. Denies any urinary issues. Follows with [facility]. Cardio - Denies any chest pain, so or dizziness. Diet/Exercise - Tries to eat good, but life gets busy and notes that fast food is fast. Eating out isn't always affordable. Does try to eat a balanced diet, reducing carbs and salads. 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 Does occasionally walk. Headaches/TMJ - Hx of intermittent headaches, feels this is related to the work she's doing. Thinks she may need a massage. Hx of TMJ, previously wore a mouthguard to help with grinding and clenching, but she broke it. She needs to buy a new one. Feels that the Chantix may make her clench/grind more. Avoids mind altering medications. Depression - Chronic seasonal depression. Takes B complex vitamins. Currently on no medications. Depression screening tool completed and reviewed. Based on score and interview, patient is not at risk for depression. Screening tool discussed with patient, and I recommended no further intervention at this time. Rash - Seen in [facility] on 12/19/22 for conjuctivitis of both eyes and a rash. Was treated with Prednisone, would like to have this looked at. Ears - Seen by Arabella Laguna CNP on 11/14/22 for right ear infection, treated with Omnicef. Wants to have both ears looked at. She's had two ear infections in the past year and at times her right ear will itch and bother ear. Sleep - Feels that the Chantix is making her not sleep well, with some vivid dreams. At one time did quit taking it, but started smoking again. She re-started the medication and continues to have issues not sleeping well. HM - Declines Covid vaccines. Declines feeling down, depressed or hopeless. Declines Pneumo vaccine. Declines Tdap. Past medical history, appointments, medications, allergies reviewed. Previous Medical History PAST MEDICAL HISTORY Diagnosis Date Abdominal pain, epigastric Reflux Unspecified disease of pancreas 2004 Pancreatitis Previous Surgical History PAST SURGICAL HISTORY Procedure Laterality Date EGD TRANSORAL BIOPSY SINGLE/MULTIPLE 08/16/2005 LAPAROSCOPY SURG CHOLECYSTECTOMY 09/22/2004 Cholecystectomy, lap PAST SURGICAL HISTORY OF Right 06/2022 Hernia surgery, [facility] Family History FAMILY HISTORY Problem Relation Age of Onset Hypertension Mother Heart Father GI Sister Half-sister No Known Problems Sister No Known Problems Sister No Known Problems Sister No Known Problems Brother No Known Problems Brother Diabetes Maternal Grandmother Hypertension Maternal Grandmother Diabetes Paternal Grandmother unsure if she has Patient Allergies ALLERGIES Allergen Reactions Amoxicillin Itching Lactose Intolerant * Diarrhea Mirena [Levonorgest* Other: See Comments Mirena removed 6 mos after insertion due to cramping. Advised she is not a good candidate for another IUD Zithromax [Azithrom* Hives Current Medications Current Outpatient Medications on File Prior to Visit Medication Sig predniSONE (DELTASONE) 10 mg tablet Take 4 tabs daily for 3 days, then 2 tabs daily for 3 days, then 1 tab daily for 3 days with food. trimethoprim-polymyxin (POLYTRIM) 10,000 unit- 1 mg/mL ophthalmic solution Use 1 Drop in both eyes every 4 hours for 7 days. varenicline (CHANTIX) 1 mg tablet Take 0.5 tablets by mouth once daily for 3 days, THEN 0.5 tablets twice daily for 4 days, THEN 1 tablet twice daily for 23 days. SARA 08/03, 21, 1-20 mg-mcg per tablet Take 1 tablet by mouth once daily. meclizine (ANTIVERT) 25 mg tab Take 1 tablet by mouth every 6 hours as needed (dizziness). varenicline (CHANTIX) 1 mg tablet Take 1 tablet by mouth twice daily. No current facility-administered medications on file prior to visit. Social History Social History Tobacco Use Smoking status: Every Day Packs/day: 0.30 Types: Cigarettes Smokeless tobacco: Never Tobacco comments: Currently on day 2 of not smoking. 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 Skin: Spots located on left arm, upper arm. Ears: External ears normal, canals clear. Lungs: Lungs clear to auscultation. No wheezing, rhonchi, rales.. Heart: RRR without murmur, gallop, or rubs. No ectopy. Health Maintenance List HEPATITIS B(1 of 3 - 3-dose series) Never done COVID-19 VACCINE(1) Never done - Declined PNEUMOCOCCAL(1 - PCV) Never done - Declined DTAP,TDAP,TD(1 - Tdap) Never done - Declined DEPRESSION ASSESSMENT Never done - Declined PAP TESTING due on 06/12/2023 HPV TESTING due on 06/12/2023 INFLUENZA(Season Ended) due on 03/15/2023 HEPATITIS C SCREENING Completed HIV SCREENING Completed Data reviewed None ASSESSMENT/PLAN: 1. Wellness examination - ICD9: V70.0, ICD10: Z00.00 (primary diagnosis) - Counseled on healthy diet and regular exercise - Calcium intake with supplements or by diet of 1000 mg/day for under 50, 6176-7806 mg/day for 50+ 2. 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 Headaches, tension - ICD9: 307.81, ICD10: G44.209 - Use OTC NSAIDS 4. Seasonal depression (HCC) - ICD9: 296.99, ICD10: F33.8 - Stable 5. History of recurrent ear infection - ICD9: V12.49, ICD10: Z86.69 - Stable on exam today - Use OTC antihistamine 6. Sleep disturbance - ICD9: 780.50, ICD10: G47.9 - Continue to monitor 7. Smoking - ICD9: 305.1, ICD10: F17.200 - Cessation encouraged. - Physiologic and physical aspects of tobacco addiction as well as strategies for quitting were discussed. - Counseling was given focusing on the harmful effects of this addiction especially given the patient's medical condition(s) which will be worsened because of the chemicals in tobacco. 8. Dermatitis - ICD9: 692.9, ICD10: L30.9 - If spots worsen, pt to contact office will give another course of Prednisone Follow up prn, annually. I agree with the Chief Complaint, ROS, and Past Histories independently gathered by the clinical decision support analyst and the remaining scribed note accurately describes my personal service to the patient. Korina Velazquez MD The documentation for this note was completed by Pam Ulloa Ma acting as scribe for Korina Velazquez MD. December 27, 2022 8:25 AM. Pam Ulloa Ma documented in this encounter [facility] 12-19-2022 Note HNO ID: [id number] Author: Alyx Conde APRN.RESEARCH SOFTWARE ENGINEER Service: ? Author Type: Nurse Practitioner Type: Progress Notes Filed: 12/19/2022 2:27 PM Note Text: This note was created using NoteWriter. Subjective Laquintarashauntayamy Garzon is a 37 year old female. 37 year old female with PMH acid reflux presents for rash and possible pink eye. Acute onset one week ago Bilateral arms. +red raised +itchy +exposure to poison dami. Used baking soda without relief. States symptoms seem to be worsning. Denies fever or chills. Denies malaise or fatigue. Bilateral eyes Acute onset this morning. +itching Woke up with crusts. Has been using Sudafed, which has not been helping Denies blurred vision, loss of vision Denies contact lens or corrective lens The history is provided by the patient. No c software developer was used. Rash This is a new problem. The current episode started in the past 7 days. The problem is unchanged. Location: bilateral arms. The rash is characterized by redness and itchiness. She was exposed to plant contact. Pertinent negatives include no anorexia, congestion, cough, diarrhea, eye pain, facial edema, fatigue, fever, joint pain, nail changes, rhinorrhea, shortness of breath, sore throat or vomiting. Treatments tried: baking soda. The treatment provided no relief. There is no history of allergies, asthma, eczema or varicella. PAST MEDICAL HISTORY Diagnosis Date Abdominal pain, epigastric Reflux Unspecified disease of pancreas 2004 Pancreatitis PAST SURGICAL HISTORY Procedure Laterality Date EGD TRANSORAL BIOPSY SINGLE/MULTIPLE 08/16/05 LAPAROSCOPY SURG CHOLECYSTECTOMY 09/22/2004 Cholecystectomy, lap ALLERGIES Amoxicillin, Lactose Intolerant [Other], Mirena [Levonorgestrel], and Zithromax [Azithromycin] MEDICATIONS varenicline (CHANTIX) 1 mg tablet Take 0.5 tablets by mouth once daily for 3 days, THEN 0.5 tablets twice daily for 4 days, THEN 1 tablet twice daily for 23 days. SARA 1/20, 21, 1-20 mg-mcg per tablet Take 1 tablet by mouth once daily. meclizine (ANTIVERT) 25 mg tab Take 1 tablet by mouth every 6 hours as needed (dizziness). predniSONE (DELTASONE) 10 mg tablet Take 4 tabs daily for 3 days, then 2 tabs daily for 3 days, then 1 tab daily for 3 days with food. trimethoprim-polymyxin (POLYTRIM) 10,000 unit- 1 mg/mL ophthalmic solution Use 1 Drop in both eyes every 4 hours for 7 days. varenicline (CHANTIX) 1 mg tablet Take 1 tablet by mouth twice daily. 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 Review of Systems Constitutional: Negative for activity change, appetite change, fatigue and fever. HENT: Negative for congestion, rhinorrhea and sore throat. Eyes: Positive for discharge and itching. Negative for photophobia, pain and visual disturbance. Respiratory: Negative for apnea, cough, chest tightness and shortness of breath. Cardiovascular: Negative for chest pain, palpitations and leg swelling. Gastrointestinal: Negative for abdominal pain, anorexia, diarrhea and vomiting. Musculoskeletal: Negative for arthralgias, back pain, gait problem and joint pain. Skin: Positive for rash. Negative for nail changes. Allergic/Immunologic: Negative for environmental allergies, food allergies and immunocompromised state. Hematological: Negative for adenopathy. Does not bruise/bleed easily. Psychiatric/Behavioral: Negative for agitation and behavioral problems. Objective BP 120/90 Pulse 78 Temp 37.1 ?C (98.8 ?F) Resp 21 Wt 83.9 kg (185 lb) LMP 10/17/2022 SpO2 98% BMI 27.92 kg/m? Physical Exam Vitals and nursing note reviewed. Constitutional: General: She is not in acute distress. Appearance: Normal appearance. She is normal weight. She is not ill-appearing, toxic-appearing or diaphoretic. HENT: Head: Normocephalic and atraumatic. Right Ear: Ear canal and external ear normal. Left Ear: Ear canal and external ear normal. Nose: Nose normal. No congestion or rhinorrhea. Mouth/Throat: Mouth: Mucous membranes are moist. Pharynx: No oropharyngeal exudate or posterior oropharyngeal erythema. Eyes: General: Right eye: No discharge. Left eye: No discharge. Extraocular Movements: Extraocular movements intact. Conjunctiva/sclera: Conjunctivae normal. Pupils: Pupils are equal (more content not included)... [facility] 12-19-2022 History of Present illness Narrative This note was created using NoteWriter. Subjective Anastasia Garzon is a 37 year old female. 37 year old female with PMH acid reflux presents for rash and possible pink eye. Acute onset one week ago Bilateral arms. +red raised +itchy +exposure to poison dami. Used baking soda without relief. States symptoms seem to be worsning. Denies fever or chills. Denies malaise or fatigue. Bilateral eyes Acute onset this morning. +itching Woke up with crusts. Has been using Sudafed, which has not been helping Denies blurred vision, loss of vision Denies contact lens or corrective lens The history is provided by the patient. No c software developer was used. Rash This is a new problem. The current episode started in the past 7 days. The problem is unchanged. Location: bilateral arms. The rash is characterized by redness and itchiness. She was exposed to plant contact. Pertinent negatives include no anorexia, congestion, cough, diarrhea, eye pain, facial edema, fatigue, fever, joint pain, nail changes, rhinorrhea, shortness of breath, sore throat or vomiting. Treatments tried: baking soda. The treatment provided no relief. There is no history of allergies, asthma, eczema or varicella. PAST MEDICAL HISTORY Diagnosis Date Abdominal pain, epigastric Reflux Unspecified disease of pancreas 2004 Pancreatitis PAST SURGICAL HISTORY Procedure Laterality Date EGD TRANSORAL BIOPSY SINGLE/MULTIPLE 08/16/05 LAPAROSCOPY SURG CHOLECYSTECTOMY 09/22/2004 Cholecystectomy, lap ALLERGIES Amoxicillin, Lactose Intolerant [Other], Mirena [Levonorgestrel], and Zithromax [Azithromycin] MEDICATIONS varenicline (CHANTIX) 1 mg tablet Take 0.5 tablets by mouth once daily for 3 days, THEN 0.5 tablets twice daily for 4 days, THEN 1 tablet twice daily for 23 days. SARA 1/20, 21, 1-20 mg-mcg per tablet Take 1 tablet by mouth once daily. meclizine (ANTIVERT) 25 mg tab Take 1 tablet by mouth every 6 hours as needed (dizziness). predniSONE (DELTASONE) 10 mg tablet Take 4 tabs daily for 3 days, then 2 tabs daily for 3 days, then 1 tab daily for 3 days with food. trimethoprim-polymyxin (POLYTRIM) 10,000 unit- 1 mg/mL ophthalmic solution Use 1 Drop in both eyes every 4 hours for 7 days. varenicline (CHANTIX) 1 mg tablet Take 1 tablet by mouth twice daily. 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 Review of Systems Constitutional: Negative for activity change, appetite change, fatigue and fever. HENT: Negative for congestion, rhinorrhea and sore throat. Eyes: Positive for discharge and itching. Negative for photophobia, pain and visual disturbance. Respiratory: Negative for apnea, cough, chest tightness and shortness of breath. Cardiovascular: Negative for chest pain, palpitations and leg swelling. Gastrointestinal: Negative for abdominal pain, anorexia, diarrhea and vomiting. Musculoskeletal: Negative for arthralgias, back pain, gait problem and joint pain. Skin: Positive for rash. Negative for nail changes. Allergic/Immunologic: Negative for environmental allergies, food allergies and immunocompromised state. Hematological: Negative for adenopathy. Does not bruise/bleed easily. Psychiatric/Behavioral: Negative for agitation and behavioral problems. Objective BP 120/90 Pulse 78 Temp 37.1 C (98.8 F) Resp 21 Wt 83.9 kg (185 lb) LMP 10/17/2022 SpO2 98% BMI 27.92 kg/m Physical Exam Vitals and nursing note reviewed. Constitutional: General: She is not in acute distress. Appearance: Normal appearance. She is normal weight. She is not ill-appearing, toxic-appearing or diaphoretic. HENT: Head: Normocephalic and atraumatic. Right Ear: Ear canal and external ear normal. Left Ear: Ear canal and external ear normal. Nose: Nose normal. No congestion or rhinorrhea. Mouth/Throat: Mouth: Mucous membranes are moist. Pharynx: No oropharyngeal exudate or posterior oropharyngeal erythema. Eyes: General: Right eye: No discharge. Left eye: No discharge. Extraocular Movements: Extraocular movements intact. Conjunctiva/sclera: Conjunctivae normal. Pupils: Pupils are equal, round, and reactive to light. Comments: Bilateral eyelids with marginal eyelid debris Vision grossly intact. Cardiovascular: Rate and Rhythm: Normal rate and regular rhythm. Pulses: Normal pulses. Heart sounds: Normal heart sounds. No murmur heard. No friction rub. Pulmonary: Effort: Pulmonary effort is normal. No respiratory distress. Breath sounds: Normal breath sounds. No stridor. No wheezing, rhonchi or rales. Chest: Chest wall: No tenderness. Abdominal: General: Abdomen is flat. There is no distension. Palpations: Abdomen is soft. There is no mass. Tenderness: There is no abdominal tenderness. There is no right CVA tenderness, left CVA tenderness, guarding or rebound. Hernia: No hernia is present. Musculoskeletal: General: No swelling, tenderness, deformity or signs of injury. Normal range of motion. Cervical back: Normal range of motion and neck supple. No rigidity. Right lower leg: No edema. Left lower leg: No edema. Lymphadenopathy: Cervical: No cervical adenopathy. Skin: General: Skin is warm and dry. Capillary Refill: Capillary refill takes less than 2 seconds. Coloration: Skin is not jaundiced or pale. Findings: Rash (bilateral arms with pruritic raised macupapular like rash) present. No bruising, erythema or lesion. Neurological: General: No focal deficit present. Mental Status: She is alert and oriented to person, place, and time. Cranial Nerves: No cranial nerve deficit. Sensory: No sensory deficit. Motor: No weakness. Coordination: Coordination normal. Gait: Gait normal. Psychiatric: Mood and Affect: Mood normal. Behavior: Behavior normal. Thought Content: Thought content normal. Judgment: Judgment normal. Assessment and Plan ASSESSMENT/PLAN: 1. Conjunctivitis of both eyes, unspecified conjunctivitis type - ICD9: 372.30, ICD10: H10.9 (primary diagnosis) - see medication orders - course and contagiousness issues discussed, including hand washing. - Instructed to call if high fever, development of periorbital redness or swelling, eye pain, visual changes, concerns or if symptoms persist. 2. Dermatitis - ICD9: 692.9, ICD10: L30.9 - Oral Steriod tx -Prednisone burst - Anti itch therapy of Calomine lotion, Oatmeal baths, and Oral Benydryl recommended prn - discussed skin care of rash - follow up if symptoms persist or worsen. Alyx Conde APRN.RESEARCH SOFTWARE ENGINEER documented in this encounter [facility] 11-14-2022 Note HNO ID: [id number] Author: Arabella Laguna APRN.MARIIA Service: ? Author Type: Nurse Practitioner Type: Progress Notes Filed: 11/14/2022 10:54 AM Note Text: This is a 36 year old female who presents today with: Patient presents with: Ear Problem: Ears itch on AND off, has been treated multiple times for ear infections. HISTORY OF PRESENT ILLNESS: Anastasia Garzon is a 36 year old female. Patient presents with: Ear Problem: Ears itch on AND off, has been treated multiple times for ear infections. Pt presents today with complaint of ear problems. Refers that she has had problems with her ears for awhile. Refers that she usually goes to urgent care. Refers that she has been on three different antibiotics this year for ear problems. Refers ears aren't painful now, moreso, itchy. Both ears -- but R>L Not doing anything right now. No popping/cracking. Hearing okay. No drainage. No recent sickness. Refers scratchy throat on Saturday, but better on Saturday. Refers that she has been having green drainage from the nose. Gets lower jaw pain from clenching, but otherwise no facial pain. No fever/chills. No PND, but does have some throat clearing. No cough. She had used the chantix and successfully quit smoking. However, admits that the chantix did cause insomnia and she has been out the last 3 weeks and resumed smoking again. Would like to restart. PAST MEDICAL HISTORY: PAST MEDICAL HISTORY Diagnosis Date Abdominal pain, epigastric Reflux Unspecified disease of pancreas 2004 Pancreatitis PAST SURGICAL HISTORY Procedure Laterality Date EGD TRANSORAL BIOPSY SINGLE/MULTIPLE 08/16/05 LAPAROSCOPY SURG CHOLECYSTECTOMY 09/22/2004 Cholecystectomy, lap ALLERGIES Amoxicillin, Lactose Intolerant [Other], Mirena [Levonorgestrel], and Zithromax [Azithromycin] MEDICATIONS Current Outpatient Medications Medication Sig SARA 08/03, 21, 1-20 mg-mcg per tablet Take 1 tablet by mouth once daily. meclizine (ANTIVERT) 25 mg tab Take 1 tablet by mouth every 6 hours as needed (dizziness). varenicline (CHANTIX) 1 mg tablet Take 0.5 tablets by mouth once daily for 3 days, THEN 0.5 tablets twice daily for 4 days, THEN 1 tablet twice daily for 23 days. varenicline (CHANTIX) 1 mg tablet Take 1 tablet by mouth twice daily. No current facility-administered medications for this visit. 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 EXAM: BP 120/88 Pulse 103 Temp 37 ?C (98.6 ?F) (Tympanic) Resp 16 Wt 81.6 kg (180 lb) LMP 10/17/2022 SpO2 98% BMI 27.17 kg/m? PHYSICAL EXAM: General Appearance: Well appearing, alert, in no acute distress, well-hydrated, well nourished.. Skin: Skin color, texture, turgor normal, no suspicious rashes or lesions. Head: Normocephalic, no masses, lesions, tenderness or abnormalities. Eyes: Anicteric sclera. Pupils are equally round and reactive to light. Extraocular movements are intact. . Ears: External ears normal, canals clear, Positive findings: R TM: purulent material noted behind TM, scarring noted, and dull, L TM: air/fluid interface visualized. Nose/Sinuses: + right maxillary sinus tenderness. Oropharynx: Lips, mucosa, and tongue normal, teeth and gums normal, oropharynx normal. Neck: Supple, no adenopathy Lungs: Lungs clear to auscultation. No wheezing, rhonchi, rales.. Heart: RRR without murmur, gallop, or rubs. No ectopy. Neurologic: Gait normal. ASSESSMENT/PLAN: 1. Acute otitis media, right - ICD9: 382.9, ICD10: H66.91 (primary diagnosis) - Will begin treatment with as per antibiotic as written, see orders - The patient should also be given OTC decongestants prn. - Supportive care with plenty of fluids, rest, and analgesia prn. - CEFDINIR 300 MG CAPSULE - FLUCONAZOLE 150 MG TABLET Start flonase. Pt reports prone to yeast infections w/ antibiotics -- will give prn fluconazole order. 2. Smoking - ICD9: 305.1, ICD10: F17.200 - Cessation encouraged. - Physiologic and physical aspects of tobacco addiction as well as strategies for quitting were discussed. - Counseling was given focusing on the harmful effects of this addiction especially given the patient's medical condition(s) which will be worsened because of the chemicals in tobacco. - Prescription for Chantix given - VARE (more content not included)... [facility] 09-25-2022 Note . MICRO - Microbiology PROCEDURE: Fungal Culture with Stain if Ind [*1] SOURCE: Vaginal BODY SITE: COLLECTED DATE/TIME: 08/22/2022 17:14 EST RECEIVED DATE/TIME: 08/23/2022 15:28 EST START DATE/TIME: 08/23/2022 15:28 EST FREE TEXT SOURCE: FINAL REPORTS Final Report [] Verified Date/Time/Personnel: 09/25/2022 08:21 EDT No fungus isolated in 4 weeks. PRELIMINARY REPORTS Preliminary Report [] Verified Date/Time/Personnel: 08/27/2022 10:37 EST No fungus isolated to date. Final report to follow. STAINS FUNSM [] Verified Date/Time/Personnel: 08/24/2022 14:28 EST No fungal elements observed by calcofluor white stain. Performing Locations *1: This test was performed at: [facility], [address] [place] [address], [id number] , [facility] ([place]) 08-24-2022 Note . MICRO - Microbiology PROCEDURE: Affirm Pathogens DNA Direct Probe [*1] SOURCE: Vaginal Fluid BODY SITE: Vagina COLLECTED DATE/TIME: 08/22/2022 17:14 EST RECEIVED DATE/TIME: 08/23/2022 14:55 EST START DATE/TIME: 08/23/2022 14:55 EST FREE TEXT SOURCE: FINAL REPORTS Final Report [] Verified Date/Time/Personnel: 08/24/2022 13:58 EST Perla species DNA Probe Negative Gardnerella vaginalis DNA Probe Negative Trichomonas vaginalis DNA Probe Negative Performing Locations *1: This test was performed at: [facility], [address] [place] [address], [facility] , [facility] ([place]) 08-03-2022 Note HNO ID: [id number] Author: BOBBY Green Service: ? Author Type: Physician Hot Tar Roofer Type: Progress Notes Filed: 08/03/2022 9:45 AM Note Text: This note was created using [email or web address]. Subjective Anastasia Garzon is a 36 year old female. HPI 36 year old female presents for R ear pain, pressure, dizziness x 2 days. Patient states she started getting R ear pain 2 days ago. She does have history of ear infection. She denies any fevers, congestion, cough. She does report some vertigo. She has had this in the past and this feels similar. Dizziness occurs with change in position. She states if she lays or sits still, it resolves. No AVILA, vomting, vision changes. PAST MEDICAL HISTORY Diagnosis Date Abdominal pain, epigastric Reflux Unspecified disease of pancreas 2004 Pancreatitis PAST SURGICAL HISTORY Procedure Laterality Date EGD TRANSORAL BIOPSY SINGLE/MULTIPLE 08/16/05 LAPAROSCOPY SURG CHOLECYSTECTOMY 09/22/2004 Cholecystectomy, lap ALLERGIES Amoxicillin, Lactose Intolerant [Other], Mirena [Levonorgestrel], and Zithromax [Azithromycin] MEDICATIONS [START ON 08/16/2022] varenicline (CHANTIX) 1 mg tablet Take 1 tablet by mouth twice daily. SARA 1/20, 21, 1-20 mg-mcg per tablet Take 1 tablet by mouth once daily. cefdinir (OMNICEF) 300 mg capsule Take 1 capsule by mouth twice daily for 7 days. meclizine (ANTIVERT) 25 mg tab Take 1 tablet by mouth every 6 hours as needed (dizziness). varenicline (CHANTIX) 1 mg tablet Take 0.5 tablets by mouth once daily for 3 days, THEN 0.5 tablets twice daily for 4 days, THEN 1 tablet twice daily for 23 days. FAMILY HISTORY Problem Relation Age of Onset Hypertension Mother Heart Father GI Sister Half-sister No Known Problems Sister No Known Problems Sister No Known Problems Sister No Known Problems Brother No Known Problems Brother Diabetes Maternal Grandmother Hypertension Maternal Grandmother Diabetes Paternal Grandmother unsure if she has Social History Tobacco Use Smoking status: Former Packs/day: 0.30 Types: Cigarettes Smokeless tobacco: Never 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, Crystal Meth Comment: sober 8 months. Review of Systems Constitutional: Negative for chills and fever. HENT: Positive for ear pain. Negative for congestion and sore throat. Respiratory: Negative for cough and shortness of breath. Cardiovascular: Negative for chest pain. Gastrointestinal: Negative for diarrhea and vomiting. Neurological: Positive for dizziness. Objective BP 122/66 Pulse 92 Temp 36.7 ?C (98.1 ?F) (Tympanic) Resp 16 Wt 79.1 kg (174 lb 6.4 oz) LMP 08/01/2022 SpO2 97% BMI 26.32 kg/m? Physical Exam Vitals and nursing note reviewed. Constitutional: General: She is not in acute distress. Appearance: Normal appearance. She is not toxic-appearing. HENT: Head: Jaw: No tenderness, swelling or pain on movement. Right Ear: Ear canal normal. A middle ear effusion is present. Tympanic membrane is erythematous. Left Ear: Tympanic membrane and ear canal normal. Nose: Nose normal. No congestion. Mouth/Throat: Mouth: Mucous membranes are moist. Pharynx: No oropharyngeal exudate or posterior oropharyngeal erythema. Eyes: Conjunctiva/sclera: Conjunctivae normal. Cardiovascular: Rate and Rhythm: Normal rate and regular rhythm. Pulmonary: Effort: Pulmonary effort is normal. Breath sounds: Normal breath sounds. Neurological: Mental Status: She is alert. Cranial Nerves: No facial asymmetry. Sensory: Sensation is intact. Motor: Motor function is intact. Coordination: Coordination is intact. Gait: Gait is intact. Comments: Moving all extremities. Normal sensation and strength. Normal gait- no ataxia. Assessment and Plan ASSESSMENT/PLAN: 1. Acute otitis media, right - ICD9: 382.9, ICD10: H66.91 (primary diagnosis) - Will begin treatment with as per antibiotic as written, see orders- Omnicef. - Reports yeast infections with atbs. Will send in Diflucan. - Supportive care with plenty of fluids, rest, and analgesia prn. - nasal spray OTC as needed x 2 days. 2. Vertigo - ICD9: 780.4, ICD10: R42 - likely due to ear infection/middle ear effusion. - Start meclizine. - patient has hx of vertigo. It is positional, fatigues with stillness, no focal neuro deficit. Low suspicion for acute stroke or intracranial abnormality. Diagnosis and treatment plan were discussed and questions were answered to the patient's satisfaction. Pt acknowledged understanding of concepts and follow up plan. Specific signs and symptoms that would indicate the need for higher level of care were discussed in detail warranting prompt ER evaluation. BOBBY Green [facility] 08-03-2022 History of Present illness Narrative This note was created using [employer]. Subjective Danielleranamy Garzon is a 36 year old female. HPI 36 year old female presents for R ear pain, pressure, dizziness x 2 days. Patient states she started getting R ear pain 2 days ago. She does have history of ear infection. She denies any fevers, congestion, cough. She does report some vertigo. She has had this in the past and this feels similar. Dizziness occurs with change in position. She states if she lays or sits still, it resolves. No AVILA, vomting, vision changes. PAST MEDICAL HISTORY Diagnosis Date Abdominal pain, epigastric Reflux Unspecified disease of pancreas 2004 Pancreatitis PAST SURGICAL HISTORY Procedure Laterality Date EGD TRANSORAL BIOPSY SINGLE/MULTIPLE 08/16/05 LAPAROSCOPY SURG CHOLECYSTECTOMY 09/22/2004 Cholecystectomy, lap ALLERGIES Amoxicillin, Lactose Intolerant [Other], Mirena [Levonorgestrel], and Zithromax [Azithromycin] MEDICATIONS [START ON 08/16/2022] varenicline (CHANTIX) 1 mg tablet Take 1 tablet by mouth twice daily. SARA 08/03, , 1-20 mg-mcg per tablet Take 1 tablet by mouth once daily. cefdinir (OMNICEF) 300 mg capsule Take 1 capsule by mouth twice daily for 7 days. meclizine (ANTIVERT) 25 mg tab Take 1 tablet by mouth every 6 hours as needed (dizziness). varenicline (CHANTIX) 1 mg tablet Take 0.5 tablets by mouth once daily for 3 days, THEN 0.5 tablets twice daily for 4 days, THEN 1 tablet twice daily for 23 days. FAMILY HISTORY Problem Relation Age of Onset Hypertension Mother Heart Father GI Sister Half-sister No Known Problems Sister No Known Problems Sister No Known Problems Sister No Known Problems Brother No Known Problems Brother Diabetes Maternal Grandmother Hypertension Maternal Grandmother Diabetes Paternal Grandmother unsure if she has Social History Tobacco Use Smoking status: Former Packs/day: 0.30 Types: Cigarettes Smokeless tobacco: Never 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, Crystal Meth Comment: sober 8 months. Review of Systems Constitutional: Negative for chills and fever. HENT: Positive for ear pain. Negative for congestion and sore throat. Respiratory: Negative for cough and shortness of breath. Cardiovascular: Negative for chest pain. Gastrointestinal: Negative for diarrhea and vomiting. Neurological: Positive for dizziness. Objective BP 122/66 Pulse 92 Temp 36.7 C (98.1 F) (Tympanic) Resp 16 Wt 79.1 kg (174 lb 6.4 oz) LMP 08/01/2022 SpO2 97% BMI 26.32 kg/m Physical Exam Vitals and nursing note reviewed. Constitutional: General: She is not in acute distress. Appearance: Normal appearance. She is not toxic-appearing. HENT: Head: Jaw: No tenderness, swelling or pain on movement. Right Ear: Ear canal normal. A middle ear effusion is present. Tympanic membrane is erythematous. Left Ear: Tympanic membrane and ear canal normal. Nose: Nose normal. No congestion. Mouth/Throat: Mouth: Mucous membranes are moist. Pharynx: No oropharyngeal exudate or posterior oropharyngeal erythema. Eyes: Conjunctiva/sclera: Conjunctivae normal. Cardiovascular: Rate and Rhythm: Normal rate and regular rhythm. Pulmonary: Effort: Pulmonary effort is normal. Breath sounds: Normal breath sounds. Neurological: Mental Status: She is alert. Cranial Nerves: No facial asymmetry. Sensory: Sensation is intact. Motor: Motor function is intact. Coordination: Coordination is intact. Gait: Gait is intact. Comments: Moving all extremities. Normal sensation and strength. Normal gait- no ataxia. Assessment and Plan ASSESSMENT/PLAN: 1. Acute otitis media, right - ICD9: 382.9, ICD10: H66.91 (primary diagnosis) - Will begin treatment with as per antibiotic as written, see orders- Omnicef. - Reports yeast infections with atbs. Will send in Diflucan. - Supportive care with plenty of fluids, rest, and analgesia prn. - nasal spray OTC as needed x 2 days. 2. Vertigo - ICD9: 780.4, ICD10: R42 - likely due to ear infection/middle ear effusion. - Start meclizine. - patient has hx of vertigo. It is positional, fatigues with stillness, no focal neuro deficit. Low suspicion for acute stroke or intracranial abnormality. Diagnosis and treatment plan were discussed and questions were answered to the patient's satisfaction. Pt acknowledged understanding of concepts and follow up plan. Specific signs and symptoms that would indicate the need for higher level of care were discussed in detail warranting prompt ER evaluation. BOBBY Green documented in this encounter [facility] 07-13-2022 Note HNO ID: [id number] Author: RT Dudley(R) Service: Nuclear Medicine Author Type: Technologist Type: Progress Notes Filed: 07/13/2022 10:47 AM Note Text: Radiology Service Progress Note PATIENT NAME: Anasatsia Garzon DATE OF SERVICE: July 13, 2022 TIME: 10:37 AM PATIENT IDENTITY VERIFICATION COMPLETED USING TWO (2) IDENTIFIERS: Name and Date of confirmed by patient verbally. FALL SCREENING: Has the patient had 2 falls in the last year or 1 fall with injury or currently using an Ambulatory Assistive Device (Walker, Cane, Wheelchair, Crutches, etc.)? No PATIENT GENDER DATA: Female. status: : No status: NO. PATIENT RELEVANT IMPLANT DATA REVIEWED: Not Applicable RADIOLOGY DEPARTMENT: General X-ray: Exam(s) Completed: Chest X-Ray PERIPHERAL IV DATA: Not applicable SIGNED BY: RT Dudley(R) July 13, 2022 10:37 AM [facility] 07-13-2022 Influenza virus A and B RNA and SARS-CoV-2 (COVID-19) N gene panel MANISH+probe (Resp) COVID 19 RESULT: SARS-CoV-2 (Agent of COVID-19) Not Detected by RT-PCR or equivalent method. amy [id number] (KEERTHI)_EUA This test was developed and its performance characteristics determined by [facility]'s [facility] [place]. This test has been authorized by FDA under an Emergency Use Authorization (EUA). This test has been validated in accordance with the FDA's Guidance Document Policy for Diagnostics Testing in Laboratories Certified to Perform High Complexity Testing under CLIA prior to Emergency use Authorization for Coronavirus Disease 2019 during the Public Health Emergency issued on September 12, 2019. Test performed by [facility], [facility] [place], [address] [place] [address]. INFLUENZA A PCR: Negative for Influenza A by RT-PCR INFLUENZA B PCR: Negative for Influenza B by RT-PCR [facility] documented as of this encounter (statuses as of 12/28/2021) [facility] History of Past illness Narrative* Problem Noted Date Resolved Date Anxiety in , antepartum 12/31/2011 05/23/2012 Abnormal quad screen 10/29/2011 05/23/2012 cardiac echogenic focus, antepartum 201105/23/2012 Choroid plexus cysts, , affecting care of mother, antepartum 10/29/2011 05/23/2012 Supervision of normal first 09/10/2011 05/23/2012 Tobacco smoking complicating 201 2 05/23/2012 documented as of this encounter (statuses as of 01/22/2022) [facility] History of Past illness Narrative* Problem Noted Date Resolved Date Anxiety in , antepartum 12/31/2011 05/23/2012 Abnormal quad screen 10/29/2011 05/23/2012 cardiac echogenic focus, antepartum 201105/23/2012 Choroid plexus cysts, , affecting care of mother, antepartum 10/29/2011 05/23/2012 Supervision of normal first 09/10/2011 05/23/2012 Tobacco smoking complicating 2 05/23/2012 documented as of this encounter (statuses as of 01/31/2022) [facility] History of Past illness Narrative* Problem Noted Date Resolved Date Anxiety in , antepartum 12/31/2011 05/23/2012 Abnormal quad screen 10/29/2011 05/23/2012 cardiac echogenic focus, antepartum 201105/23/2012 Choroid plexus cysts, , affecting care of mother, antepartum 10/29/2011 05/23/2012 Supervision of normal first 09/10/2011 05/23/2012 Tobacco smoking complicating 2 05/23/2012 documented as of this encounter (statuses as of 02/02/2022) [facility] History of Past illness Narrative* Problem Noted Date Resolved Date Anxiety in , antepartum 12/31/2011 05/23/2012 Abnormal quad screen 10/29/2011 05/23/2012 cardiac echogenic focus, antepartum 201105/23/2012 Choroid plexus cysts, , affecting care of mother, antepartum 10/29/2011 05/23/2012 Supervision of normal first 09/10/2011 05/23/2012 Tobacco smoking complicating 2 05/23/2012 documented as of this encounter (statuses as of 02/08/2022) [facility] History of Past illness Narrative* Problem Noted Date Resolved Date Anxiety in , antepartum 12/31/2011 05/23/2012 Abnormal quad screen 10/29/2011 05/23/2012 cardiac echogenic focus, antepartum 201105/23/2012 Choroid plexus cysts, , affecting care of mother, antepartum 10/29/2011 05/23/2012 Supervision of normal first 09/10/2011 05/23/2012 Tobacco smoking complicating 2 05/23/2012 documented as of this encounter (statuses as of 08/03/2022) [facility] History of Past illness Narrative* Problem Noted Date Resolved Date Anxiety in , antepartum 12/31/2011 05/23/2012 Abnormal quad screen 10/29/2011 05/23/2012 cardiac echogenic focus, antepartum 201105/23/2012 Choroid plexus cysts, , affecting care of mother, antepartum 10/29/2011 05/23/2012 Supervision of normal first 09/10/2011 05/23/2012 Tobacco smoking complicating 2 05/23/2012 documented as of this encounter (statuses as of 12/19/2022) [facility] of Past illness Narrative* Problem Noted Date Resolved Date Anxiety in , antepartum 12/31/2011 05/23/2012 Abnormal quad screen 10/29/2011 05/23/2012 cardiac echogenic focus, antepartum 201105/23/2012 Choroid plexus cysts, , affecting care of mother, antepartum 10/29/2011 05/23/2012 Supervision of normal first 09/10/2011 05/23/2012 Tobacco smoking complicating 2 05/23/2012 documented as of this encounter (statuses as of 12/28/2022) [facility] History of Past illness Narrative* Problem Noted Date Diagnosed Date Resolved Date Anxiety in , antepartum 12/31/2011 05/23/2012 Abnormal quad screen 10/29/2011 012 cardiac echogenic focus, antepartum 10/29/2011 05/23/2012 Choroid plexus cysts, , affecting care of mother, antepartum 10/29/2011 05/23/2012 Supervision of normal first 09/10/2011 05/23/2012 Tobacco smoking complicating 09/10/2011 05/23/2012 documented as of this encounter (statuses as of 02/12/2023) [facility] of Past illness Narrative* Problem Noted Date Diagnosed Date Resolved Date Anxiety in , antepartum 12/31/2011 05/23/2012 Abnormal quad screen 10/29/2011 012 cardiac echogenic focus, antepartum 10/29/2011 05/23/2012 Choroid plexus cysts, , affecting care of mother, antepartum 10/29/2011 05/23/2012 Supervision of normal first 09/10/2011 05/23/2012 Tobacco smoking complicating 09/10/2011 05/23/2012 documented as of this encounter (statuses as of 02/12/2023) [facility] History of Past illness Narrative* Problem Noted Date Diagnosed Date Resolved Date Anxiety in , antepartum 12/31/2011 05/23/2012 Abnormal quad screen 10/29/2011 012 cardiac echogenic focus, antepartum 10/29/2011 05/23/2012 Choroid plexus cysts, , affecting care of mother, antepartum 10/29/2011 05/23/2012 Supervision of normal first 09/10/2011 05/23/2012 Tobacco smoking complicating 09/10/2011 05/23/2012 documented as of this encounter (statuses as of 03/22/2023) [facility] History of Past illness Narrative* Problem Noted Date Diagnosed Date Resolved Date Anxiety in , antepartum 12/31/2011 05/23/2012 Abnormal quad screen 10/29/2011 012 cardiac echogenic focus, antepartum 10/29/2011 05/23/2012 Choroid plexus cysts, , affecting care of mother, antepartum 10/29/2011 05/23/2012 Supervision of normal first 09/10/2011 05/23/2012 Tobacco smoking complicating 09/10/2011 05/23/2012 documented as of this encounter (statuses as of 03/27/2023) [facility] of Past illness Narrative* Problem Noted Date Diagnosed Date Resolved Date Anxiety in , antepartum 12/31/2011 05/23/2012 Abnormal quad screen 10/29/2011 012 cardiac echogenic focus, antepartum 10/29/2011 05/23/2012 Choroid plexus cysts, , affecting care of mother, antepartum 10/29/2011 05/23/2012 Supervision of normal first 09/10/2011 05/23/2012 Tobacco smoking complicating 09/10/2011 05/23/2012 documented as of this encounter (statuses as of 04/03/2023) [facility] of Past illness Narrative* Problem Noted Date Diagnosed Date Resolved Date Anxiety in , antepartum 12/31/2011 05/23/2012 Abnormal quad screen 10/29/2011 012 cardiac echogenic focus, antepartum 10/29/2011 05/23/2012 Choroid plexus cysts, , affecting care of mother, antepartum 10/29/2011 05/23/2012 Supervision of normal first 09/10/2011 05/23/2012 Tobacco smoking complicating 09/10/2011 05/23/2012 documented as of this encounter (statuses as of 04/05/2023) [facility] of Past illness Narrative* Problem Noted Date Diagnosed Date Resolved Date Anxiety in , antepartum 12/31/2011 05/23/2012 Abnormal quad screen 10/29/2011 012 cardiac echogenic focus, antepartum 10/29/2011 05/23/2012 Choroid plexus cysts, , affecting care of mother, antepartum 10/29/2011 05/23/2012 Supervision of normal first 09/10/2011 05/23/2012 Tobacco smoking complicating 09/10/2011 05/23/2012 documented as of this encounter (statuses as of 04/06/2023) [facility] of Past illness Narrative* Problem Noted Date Diagnosed Date Resolved Date Anxiety in , antepartum 12/31/2011 05/23/2012 Abnormal quad screen 10/29/2011 012 cardiac echogenic focus, antepartum 10/29/2011 05/23/2012 Choroid plexus cysts, , affecting care of mother, antepartum 10/29/2011 05/23/2012 Supervision of normal first 09/10/2011 05/23/2012 Tobacco smoking complicating 09/10/2011 05/23/2012 documented as of this encounter (statuses as of 04/12/2023) [facility] of Past illness Narrative* Problem Noted Date Diagnosed Date Resolved Date Anxiety in , antepartum 12/31/2011 05/23/2012 Abnormal quad screen 10/29/2011 012 cardiac echogenic focus, antepartum 10/29/2011 05/23/2012 Choroid plexus cysts, , affecting care of mother, antepartum 10/29/2011 05/23/2012 Supervision of normal first 09/10/2011 05/23/2012 Tobacco smoking complicating 09/10/2011 05/23/2012 documented as of this encounter (statuses as of 04/12/2023) [facility] of [facility] illness Narrative* Problem Noted Date Diagnosed Date Resolved Date Anxiety in , antepartum 12/31/2011 05/23/2012 Abnormal quad screen 10/29/2011 012 cardiac echogenic focus, antepartum 10/29/2011 05/23/2012 Choroid plexus cysts, , affecting care of mother, antepartum 10/29/2011 05/23/2012 Supervision of normal first 09/10/2011 05/23/2012 Tobacco smoking complicating 09/10/2011 05/23/2012 documented as of this encounter (statuses as of 04/17/2023) [facility] of [facility] illness Narrative* Problem Noted Date Diagnosed Date Resolved Date Anxiety in , antepartum 12/31/2011 05/23/2012 Abnormal quad screen 10/29/2011 012 cardiac echogenic focus, antepartum 10/29/2011 05/23/2012 Choroid plexus cysts, , affecting care of mother, antepartum 10/29/2011 05/23/2012 Supervision of normal first 09/10/2011 05/23/2012 Tobacco smoking complicating 09/10/2011 05/23/2012 documented as of this encounter (statuses as of 04/24/2023) [facility] of [facility] illness Narrative* Problem Noted Date Diagnosed Date Resolved Date Anxiety in , antepartum 12/31/2011 05/23/2012 Abnormal quad screen 10/29/2011 012 cardiac echogenic focus, antepartum 10/29/2011 05/23/2012 Choroid plexus cysts, , affecting care of mother, antepartum 10/29/2011 05/23/2012 Supervision of normal first 09/10/2011 05/23/2012 Tobacco smoking complicating 09/10/2011 05/23/2012 documented as of this encounter (statuses as of 05/19/2023) [facility] of [facility] illness Narrative* Problem Noted Date Diagnosed Date Resolved Date Anxiety in , antepartum 12/31/2011 05/23/2012 Abnormal quad screen 10/29/2011 012 cardiac echogenic focus, antepartum 10/29/2011 05/23/2012 Choroid plexus cysts, , affecting care of mother, antepartum 10/29/2011 05/23/2012 Supervision of normal first 09/10/2011 05/23/2012 Tobacco smoking complicating 09/10/2011 05/23/2012 documented as of this encounter (statuses as of 05/19/2023) [facility] History of Past illness Narrative* Problem Noted Date Diagnosed Date Resolved Date Anxiety in , antepartum 12/31/2011 05/23/2012 Abnormal quad screen 10/29/2011 012 cardiac echogenic focus, antepartum 10/29/2011 05/23/2012 Choroid plexus cysts, , affecting care of mother, antepartum 10/29/2011 05/23/2012 Supervision of normal first 09/10/2011 05/23/2012 Tobacco smoking complicating 09/10/2011 05/23/2012 documented as of this encounter (statuses as of 05/19/2023) [facility] History of Past illness Narrative* Problem Noted Date Diagnosed Date Resolved Date Anxiety in , antepartum 12/31/2011 05/23/2012 Abnormal quad screen 10/29/2011 012 cardiac echogenic focus, antepartum 10/29/2011 05/23/2012 Choroid plexus cysts, , affecting care of mother, antepartum 10/29/2011 05/23/2012 Supervision of normal first 09/10/2011 05/23/2012 Tobacco smoking complicating 09/10/2011 05/23/2012 documented as of this encounter (statuses as of 05/19/2023) [facility] History of Past illness Narrative* Problem Noted Date Diagnosed Date Resolved Date Anxiety in , antepartum 12/31/2011 05/23/2012 Abnormal quad screen 10/29/2011 012 cardiac echogenic focus, antepartum 10/29/2011 05/23/2012 Choroid plexus cysts, , affecting care of mother, antepartum 10/29/2011 05/23/2012 Supervision of normal first 09/10/2011 05/23/2012 Tobacco smoking complicating 09/10/2011 05/23/2012 documented as of this encounter (statuses as of 05/19/2023) [facility] History of Past illness Narrative* Problem Noted Date Diagnosed Date Resolved Date Anxiety in , antepartum 12/31/2011 05/23/2012 Abnormal quad screen 10/29/2011 012 cardiac echogenic focus, antepartum 10/29/2011 05/23/2012 Choroid plexus cysts, , affecting care of mother, antepartum 10/29/2011 05/23/2012 Supervision of normal first 09/10/2011 05/23/2012 Tobacco smoking complicating 09/10/2011 05/23/2012 documented as of this encounter (statuses as of 05/27/2023) [facility] History of Past illness Narrative* Problem Noted Date Diagnosed Date Resolved Date Anxiety in , antepartum 12/31/2011 05/23/2012 Abnormal quad screen 10/29/2011 012 cardiac echogenic focus, antepartum 10/29/2011 05/23/2012 Choroid plexus cysts, , affecting care of mother, antepartum 10/29/2011 05/23/2012 Supervision of normal first 09/10/2011 05/23/2012 Tobacco smoking complicating 09/10/2011 05/23/2012 documented as of this encounter (statuses as of 06/12/2023) [facility] History of Past illness Narrative* Problem Noted Date Diagnosed Date Resolved Date Anxiety in , antepartum 12/31/2011 05/23/2012 Abnormal quad screen 10/29/2011 012 cardiac echogenic focus, antepartum 10/29/2011 05/23/2012 Choroid plexus cysts, , affecting care of mother, antepartum 10/29/2011 05/23/2012 Supervision of normal first 09/10/2011 05/23/2012 Tobacco smoking complicating 09/10/2011 05/23/2012 documented as of this encounter (statuses as of 06/28/2023) [facility]ments Appointment Date:04/23/2022 02:30:00 PM Scheduled Provider:SUBHA MCCARTY MD Location:[facility] Appointment Type: OV Diagnostic Tests Pending * Fungal Culture with Stain if Ind 04/04/[address] [facility] Evaluation + Plan note Future Appointments [facility] Evaluation note* Diagnosis Vaginal irritation- Primary Unspecified noninflammatory disorder of vagina [facility] Diagnosis Vaginal burning- Primary Other specified symptom associated with female genital organs [facility]* Diagnosis Sore throat- Primary Acute pharyngitis [facility]* Diagnosis Sore throat- Primary Acute ph[facility]itis [facility] Diagnosis Acute otitis media, right- Primary Unspecified otitis media Vertigo Dizziness and giddiness [facility]* Diagnosis Conjunctivitis of both eyes, unspecified conjunctivitis type- Primary Dermatitis Contact dermatitis and other eczema, due to unspecified cause [facility] Diagnosis Wellness examination- Primary TMJ dysfunction Temporomandibular joint disorders, unspecified Headaches, tension Seasonal depression (HCC) Other specified episodic mood disorder History of recurrent ear infection Sleep disturbance Sleep disturbance, unspecified Smoking Tobacco use disorder Dermatitis Contact dermatitis and other eczema, due to unspecified cause [facility] Diagnosis Smoking Tobacco use disorder [facility]* Diagnosis Smoking Tobacco use disorder [facility]* Diagnosis Sore throat- Primary Acute pharyngitis Acute cough Sinus congestion Other diseases of nasal cavity and sinuses [facility]* Diagnosis Bronchitis- Primary Bronchitis, not specified as acute or chronic Vaginal yeast infection Candidiasis of vulva and vagina documented [facility] this [facility]* Diagnosis RLQ abdominal pain- Primary Abdominal pain, right lower quadrant [facility]* Diagnosis Elevated alkaline phosphatase level- Primary Other nonspecific abnormal serum enzyme levels [facility] this [facility]* Diagnosis Pancreatic cyst- Primary Cyst and pseudocyst of pancreas [facility] Diagnosis Pancreatic cyst- Primary Cyst and pseudocyst of pancreas Elevated alkaline phosphatase level Other nonspecific abnormal serum enzyme levels Elevated LFTs Other abnormal blood chemistry [facility]* Diagnosis Elevated alkaline phosphatase level- Primary Other nonspecific abnormal serum enzyme levels Elevated LFTs Other abnormal blood chemistry Pancreatic cyst Cyst and pseudocyst of pancreas Liver lesion Other specified disorders of liver [facility]* Diagnosis Pancreatic cyst Cyst and pseudocyst of pancreas [facility]* Diagnosis Pain in both lower extremities- Primary Foot pain, bilateral Pain in limb documented [facility] this encounter [facility]* Diagnosis Pancreatic cyst Cyst and pseudocyst of pancreas Elevated alkaline phosphatase level Other nonspecific abnormal serum enzyme levels Elevated LFTs Other abnormal blood chemistry [facility]* Diagnosis Elevated LFTs- Primary Other abnormal blood chemistry [facility] N[facility]ative No data available for this section [facility] Hospital Discharge instructions No data available for this section [facility] Progress note No data available for this section [facility] Reason for referral (narrative)* Outpatient Procedure (Routine) - Authorized Specialty Diagnoses / Procedures Referred By Moises verma Referred To Contact [facility] [place] Diagnoses Pancreatic cyst Procedures EGD - THERAPEUTIC, EUS, OR TUBE INTERVENTIONS EGD INTRMURAL US NEEDLE ASPIRATE/BIOPSY ESOPHAGS Nolvia Mccormack MD [address] [place] [address] [facility] [address] [address] Referral ID Status Reason Start Date Expiration Date Visits Requested Visits Authorized [id number] Authorized Auto-Generat ed Referral 3 06/12/2024 1 1 [facility] Discharge Instructions * Instructions* Fidelina Loya MD - 09/06/2019 You have influenza B. It is too late for you to receive Tamiflu as it only helps in the first 48 hours of fever and flulike symptoms. He may take Tylenol 650 mg every 4-6 hours as needed for aches orfever. He may take ibuprofen 600 mg every 6-8 hours as needed with food. He may also try TheraFlu or NyQuil but understand that these also contained Tylenol. Keep your self hydrated. Get plenty of rest. He must avoid others as this virus is highly contagious. * Attachments The following attachments cannot be sent through Care Everywhere. * Flu Vaccine (Inactivated or Recombinant): VIS (Vincentian) * Influenza (Vincentian) * Fever: General Info (Vincentian) documented in this encounter Assessments Diagnosis Fever, unspecified fever cause- Primary Influenza B Influenza with other respiratory manifestations Summary Purpose Family History No Family History Records FoundNo Family History Records FoundNo Family History Records Found Advance Directives No Advanced Directives Records FoundNo Advanced Directives Records FoundNo Advanced Directives Records Found Health Concerns Infection Onset Date Last Indicated Resolved Time COVID-19 Rule-Out 12/27/2021 12/27/2021 12/28/2021 4:20 AM EDT COVID-19 Confirmed 12/27/2021 12/27/2021 Reason for Referral Specialty Diagnoses / Procedures Referred By Moises verma Referred To Contact Ent - Otolaryngology Diagnoses Sore throat Procedures CONSULT TO ENT OFFICE/OUTPATIENT [facility] 60-74 MINUTES Ketty Hopson APRN.MARIIA [address] [place] [address] Referral ID Status Reason Start Date Expiration Date Visits Requested Visits Authorized [id number] Authorized PCP Requested Referral 02/08/2022 02/08/2023 1 1 Specialty Diagnoses / Procedures Referred By Moises verma Referred To Contact CT IMAGING Diagnoses Right lower quadrant abdominal pain Procedures CT ABD/PEL W IVCON CT ABD & PELVIS W/CONTRAST Chelly Chacko MD [address] [place] [address] [place] [address] Referral ID Status Reason Start Date Expiration Date Visits Requested Visits Authorized [id number] Additional Clinical Info Needed Auto-Genera courtney Referral Patient Cleared - Admin/Chair man/Directo r advise to proceed or did not respond 04/03/2023 05/02/2024 2 2 Specialty Diagnoses / Procedures Referred By Contac t Referred To Contact MR IMAGING Diagnoses Pancreatic cyst Procedures MRI 3D POST PROCESSING 3D RENDERING W/INTERP&POSTPROC DIFF WORK STATION Chelly Chacko MD [address] [place] [address] Mr Imaging [facility]95 Referral ID Status Reason Start Date Expiration Date Visits Requested Visits Authorized [id number] Authorized Auto-Generat ed Referral 04/05/2023 05/04/2024 1 1 Specialty Diagnoses / Procedures Referred By Contac t Referred To Contact MR IMAGING Diagnoses Pancreatic cyst Procedures MRI PANC/MIKE WO/W IVCON MRI ABDOMEN W/O & W/CONTRAST MATERIAL Chelly Chacko MD [address] [place] [address] Mr Imaging [facility] Referral ID Status Reason Start Date Expiration Date Visits Requested Visits Authorized [id number] Additional Clinical Info Needed Auto-Generat ed Referral 04/05/2023 05/04/2024 1 1 Specialty Diagnoses / Procedures Referred By Contac t Referred To Contact Gastroenterology Diagnoses Pancreatic cyst Elevated alkaline phosphatase level Elevated LFTs Procedures CONSULT TO GASTROENTEROLOGY OFFICE/OUTPATIENT [facility] 60-74 MINUTES Chelly Chacko MD [address] [place] [address] Referral ID Status Reason Start Date Expiration Date Visits Requested Visits Authorized [id number] Authorized PCP Requested Referral 04/12/2023 04/11/2024 1 1 Referral ID Status Reason Start Date Expiration Date V isits Requested Visits Authorized [id number] Closed Auto-Generat ed Referral Patient Cleared - Admin/Chairm an/Director advise to proceed or did not respond 04/03/2023 06/02/2023 2 2 Referral ID Status Reason Start Date Expiration Date V isits Requested Visits Authorized [id number] Closed Auto-Generate d Referral 04/05/2023 05/04/2024 1 1 Referral ID Status Reason Start Date Expiration Date V isits Requested Visits Authorized [id number] Closed Auto-Generat ed Referral Patient Cleared - Admin/Chairm an/Director advise to proceed or did not respond 04/08/2023 06/07/2023 1 1 Specialty Diagnoses / Procedures Referred By Contac t Referred To Contact Diagnoses Elevated LFTs Procedures CONSULT TO HEPATOLOGY OFFICE/OUTPATIENT NEW HIGH MDM 60-74 MINUTES Nolvia Mccormack MD [address] [place] [address] Referral ID Status Reason Start Date Expiration Date Visits Requested Visits Authorized [id number] Authorized PCP Requested Referral 3 06/26/2024 1 1 Additional Source Comments Reason for Visit (unrecogniz ed section and content) Reason Comments Results Reason Comments Vaginal Problem Reason Comments Ear Pain Mike ear pain, R ear itchy x1 day Reason Comments Sore Throat pain rated 3, x1 day currently taking ATB, bilateral ear pain rated 3 Reason Comments Ear Pain Pt reported dizzines s, ear, jaw pain x2 days. Reason Comments Rash On both arms, left e ye itchy x 1 week Reason Comments Wellness Reason Onset Date Comments Refill Request 02/12/2023 Reason Comments Cough Chest congestin, mike ateral ear pain, ST x6 days Reason Comments Follow Up Urgent care follow u p Reason Comments post op pain Reason Comments Results Reason Comments Results Reason Comments Results discuss Ear Problem c/o itch Reason Comments Radiology CT Specialty Diagnoses / Procedures Referred By Contac t Referred To Contact CT IMAGING Diagnoses Right lower quadrant abdominal pain Procedures CT ABD/PEL W IVCON CT ABD & PELVIS W/CONTRAST Chelly Chacko MD [address] [place] [address] [place] [address] Referral ID Status Reason Start Date Expiration Date V isits Requested Visits Authorized [id number] Closed Auto-Generat ed Referral Patient Cleared - Admin/Chairm an/Director advise to proceed or did not respond 04/03/2023 06/02/2023 2 2 Specialty Diagnoses / Procedures Referred By Contac t Referred To Contact CT IMAGING Diagnoses Right lower quadrant abdominal pain Procedures CT ABD/PEL W IVCON CT ABD & PELVIS W/CONTRAST Chelly Chacko MD [address] [place] [address] [place] [address] Specialty Diagnoses / Procedures Referred By Contac t Referred To Contact MR IMAGING Diagnoses Pancreatic cyst Procedures MRI 3D POST PROCESSING 3D RENDERING W/INTERP&POSTPROC DIFF WORK STATION Chelly Chacko MD [address] [place] [address] [place] [address] Referral ID Status Reason Start Date Expiration Date V isits Requested Visits Authorized [id number] Closed Auto-Generate d Referral 04/05/2023 05/04/2024 1 1 Reason Comments Pain In legs and feet- no t supposed to be using the tylenol D/T elevated LFT's Reason Comments New Patient Pt here for new visi t Specialty Diagnoses / Procedures Referred By Contac t Referred To Contact Gastroenterology Diagnoses Pancreatic cyst Elevated alkaline phosphatase level Elevated LFTs Procedures CONSULT TO GASTROENTEROLOGY OFFICE/OUTPATIENT NEW HIGH MDM 60-74 MINUTES Chelly Chacko MD [address] [place] [address] Referral ID Status Reason Start Date Expiration Date V isits Requested Visits Authorized [id number] Closed PCP Requested Referral 04/12/2023 04/11/2024 1 1 INFORMATION SOURCE (unrecogn ized section and content) DATE CREATED AUTHOR AUTHOR'S ORGANIZ ATION 10/17/2022 [facility] ([place]) DATE CREATED AUTHOR AUTHOR'S ORGANIZ ATION 07/02/2023 [facility] Source Comments (unrecognize d section and content) In the event this informatio n is protected by the Federal Confidentiality of Alcohol and Drug Abuse Patient Records regulations: The Federal rules restrict any use of the information to criminally investigate or prosecute any alcohol or drug abuse patient.[facility] the event this information is protected by the Federal Confidentiality of Alcohol and Drug Abuse Patient Records regulations: The Federal rules restrict any use of the information to criminally investigate or prosecute any alcohol or drug abuse patient.[facility] the event this information is protected by the Federal Confidentiality of Alcohol and Drug Abuse Patient Records regulations: The Federal rules restrict any use of the information to criminally investigate or prosecute any alcohol or drug abuse patient.[facility] the event this information is protected by the Federal Confidentiality of Alcohol and Drug Abuse Patient Records regulations: The Federal rules restrict any use of the information to criminally investigate or prosecute any alcohol or drug abuse patient.[facility] the event this information is protected by the Federal Confidentiality of Alcohol and Drug Abuse Patient Records regulations: The Federal rules restrict any use of the information to criminally investigate or prosecute any alcohol or drug abuse patient.[facility] the event this information is protected by the Federal Confidentiality of Alcohol and Drug Abuse Patient Records regulations: The Federal rules restrict any use of the information to criminally investigate or prosecute any alcohol or drug abuse patient.[facility] the event this information is protected by the Federal Confidentiality of Alcohol and Drug Abuse Patient Records regulations: The Federal rules restrict any use of the information to criminally investigate or prosecute any alcohol or drug abuse patient.[facility] the event this information is protected by the Federal Confidentiality of Alcohol and Drug Abuse Patient Records regulations: The Federal rules restrict any use of the information to criminally investigate or prosecute any alcohol or drug abuse patient.[facility] the event this information is protected by the Federal Confidentiality of Alcohol and Drug Abuse Patient Records regulations: The Federal rules restrict any use of the information to criminally investigate or prosecute any alcohol or drug abuse patient.[facility] the event this information is protected by the Federal Confidentiality of Alcohol and Drug Abuse Patient Records regulations: The Federal rules restrict any use of the information to criminally investigate or prosecute any alcohol or drug abuse patient.[facility] the event this information is protected by the Federal Confidentiality of Alcohol and Drug Abuse Patient Records regulations: The Federal rules restrict any use of the information to criminally investigate or prosecute any alcohol or drug abuse patient.[facility] the event this information is protected by the Federal Confidentiality of Alcohol and Drug Abuse Patient Records regulations: The Federal rules restrict any use of the information to criminally investigate or prosecute any alcohol or drug abuse patient.[facility] the event this information is protected by the Federal Confidentiality of Alcohol and Drug Abuse Patient Records regulations: The Federal rules restrict any use of the information to criminally investigate or prosecute any alcohol or drug abuse patient.[facility] the event this information is protected by the Federal Confidentiality of Alcohol and Drug Abuse Patient Records regulations: The Federal rules restrict any use of the information to criminally investigate or prosecute any alcohol or drug abuse patient.[facility] the event this information is protected by the Federal Confidentiality of Alcohol and Drug Abuse Patient Records regulations: The Federal rules restrict any use of the information to criminally investigate or prosecute any alcohol or drug abuse patient.[facility] the event this information is protected by the Federal Confidentiality of Alcohol and Drug Abuse Patient Records regulations: The Federal rules restrict any use of the information to criminally investigate or prosecute any alcohol or drug abuse patient.[facility] Hospital[facility] the event this information is protected by the Federal Confidentiality of Alcohol and Drug Abuse Patient Records regulations: The Federal rules restrict any use of the information to criminally investigate or prosecute any alcohol or drug abuse patient.[facility] Hospital[facility] the event this information is protected by the Federal Confidentiality of Alcohol and Drug Abuse Patient Records regulations: The Federal rules restrict any use of the information to criminally investigate or prosecute any alcohol or drug abuse patient.[facility] HospitalIn the event this information is protected by the Federal Confidentiality of Alcohol and Drug Abuse Patient Records regulations: The Federal rules restrict any use of the information to criminally investigate or prosecute any alcohol or drug abuse patient.[facility] HospitalIn the event this information is protected by the Federal Confidentiality of Alcohol and Drug Abuse Patient Records regulations: The Federal rules restrict any use of the information to criminally investigate or prosecute any alcohol or drug abuse patient.[facility] Hospital[facility] the event this information is protected by the Federal Confidentiality of Alcohol and Drug Abuse Patient Records regulations: The Federal rules restrict any use of the information to criminally investigate or prosecute any alcohol or drug abuse patient.[facility] HospitalIn the event this information is protected by the Federal Confidentiality of Alcohol and Drug Abuse Patient Records regulations: The Federal rules restrict any use of the information to criminally investigate or prosecute any alcohol or drug abuse patient.[facility] Hospital[facility] the event this information is protected by the Federal Confidentiality of Alcohol and Drug Abuse Patient Records regulations: The Federal rules restrict any use of the information to criminally investigate or prosecute any alcohol or drug abuse patient.[facility] the event this information is protected by the Federal Confidentiality of Alcohol and Drug Abuse Patient Records regulations: The Federal rules restrict any use of the information to criminally investigate or prosecute any alcohol or drug abuse patient.[facility] Hospital[facility] the event this information is protected by the Federal Confidentiality of Alcohol and Drug Abuse Patient Records regulations: The Federal rules restrict any use of the information to criminally investigate or prosecute any alcohol or drug abuse patient.[facility] HospitalIn the event this information is protected by the [facility] Confidentiality of Alcohol and Drug Abuse Patient Records regulations: The Federal rules restrict any use of the information to criminally investigate or prosecute any alcohol or drug abuse patient.[facility] HospitalIn the event this information is protected by the Federal Confidentiality of Alcohol and Drug Abuse Patient Records regulations: The Federal rules restrict any use of the information to criminally investigate or prosecute any alcohol or drug abuse patient.[facility] Care Teams (unrecognized sec tion and content) Package Reinspector Relationship Specialty Start Date End Date Korina Velazquez MD [address] [place] [address] PCP - General Family Practice 05/02/20 Pcp, No Family Practice 07/27/15 Package Reinspector Relationship Specialty Start Date End Date Korina Velazquez MD [address] [place] [address] PCP - General Family Practice 05/02/20 Pcp, No Family Practice 07/27/15 Package Reinspector Relationship Specialty Start Date End Date Korina Velazquez MD [address] [place] [address] PCP - General Family Medicine 05/02/20 Pcp, No Family Medicine 07/27/15 Package Reinspector Relationship Specialty Start Date End Date Korina Velazquez MD [address] [facility] [place] [address] PCP - General Family Medicine 05/02/20 Pcp, No Family Medicine 07/27/15 Package Reinspector Relationship Specialty Start Date End Date Korina Velazquez MD [address] [facility] [place] [address] PCP - General Family Medicine 05/02/20 Pcp, No Family Medicine 07/27/15 Package Reinspector Relationship Specialty Start Date End Date Korina Velazquez MD [address] [facility] [place] [address] PCP - General Family Medicine 05/02/20 Pcp, No, ENDODONTIST Family Medicine 07/27/15 Package Reinspector Relationship Specialty Start Date End Date Korina Velazquez MD [address] [facility] [place] [address] PCP - General Family Medicine 05/02/20 Pcp, No, ENDODONTIST Family Medicine 07/27/15 Package Reinspector Relationship Specialty Start Date End Date Korina Velazquez MD [address] [facility] [place] [address] PCP - General Family Medicine 05/02/20 Pcp, No, ENDODONTIST Family Medicine 07/27/15 Package Reinspector Relationship Specialty Start Date End Date Korina Velazquez MD [address] [facility] [place] [address] PCP - General Family Medicine 05/02/20 Pcp, No, ENDODONTIST Family Medicine 07/27/15 Package Reinspector Relationship Specialty Start Date End Date Korina Velazquez MD [address] [place] [address] PCP - General Family Medicine 05/02/20 Pcp No, ENDODONTIST Family Medicine 07/27/15 Package Reinspector Relationship Specialty Start Date End Date Korina Velazquez MD [address] [facility] [place] [address] PCP - General Family Medicine 05/02/20 Pcp No, ENDODONTIST Family Medicine 07/27/15 Package Reinspector Relationship Specialty Start Date End Date Korina Vealzquez MD [address] [facility] [place] [address] PCP - General Family Medicine 05/02/20 PcpJeanette, ENDODONTIST Family Medicine 07/27/15 Package Reinspector Relationship Specialty Start Date End Date Korina Velazquez MD [address] [facility] [place] [address] PCP - General Family Medicine 05/02/20 PcpJeanette, ENDODONTIST Family Medicine 07/27/15 Package Reinspector Relationship Specialty Start Date End Date Korina Velazquez MD [address] [facility] [place] [address] PCP - General Family Medicine 05/02/20 PcpJeanette, ENDODONTIST Family Medicine 07/27/15 Package Reinspector Relationship Specialty Start Date End Date Korina Velazquez MD [address] [facility] [place] [address] PCP - General Family Medicine 05/02/20 PcpJeanette, ENDODONTIST Family Medicine 07/27/15 Package Reinspector Relationship Specialty Start Date End Date Korina Velazquez MD [address] [facility] [place] [address] PCP - General Family Medicine 05/02/20 Pcp, No, ENDODONTIST Family Medicine 07/27/15 Package Reinspector Relationship Specialty Start Date End Date Korina Velazquez MD [address] [place], [place] [address] PCP - General Family Medicine 05/02/20 Pcp, No, ENDODONTIST Family Medicine 07/27/15 Package Reinspector Relationship Specialty Start Date End Date Korina Velazquez MD [address] [place] [address] PCP - General Family Medicine 05/02/20 PcpJeanette, ENDODONTIST Family Medicine 07/27/15 Package Reinspector Relationship Specialty Start Date End Date Korina Velazquez MD [address] [place] [address] PCP - General Family Medicine 05/02/20 PcpJeanette, ENDODONTIST Family Medicine 07/27/15 Package Reinspector Relationship Specialty Start Date End Date Korina Velazquez MD [address] [place] [address] PCP - General Family Medicine 05/02/20 PcpJeanette, ENDODONTIST Family Medicine 07/27/15 Care Team (unrecognized sect ion and content) Care Team Personnel Name: PHYSICIAN, NONE Position: Physician Member Role: Primary Care Physician Care Team Related Persons Name: ELIZABETH ARGUETA Address: Home [address] [place] [address] Name: HERNESTO GARZON Address: Home [address] [place] [address] [place] Name: HERNESTO GARZON Address: Home [address] [place] [address] [place] Name: HERNESTO GARZON Address: Home [address] [place] [address] [place] Name: HERNESTO GARZON Address: Home [address] [place] [address] [place] Name: HERNESTO GARZON Address: [address] [address] Name: HERNESTO GARZON Address: [address] [address] Care Team Personnel Name: PHYSICIAN, NONE Position: Physician Member Role: Primary Care Physician Care Team Related Persons Name: ELIZABETH ARGUETA Address: Home [address] [place] [id number] Name: HERNESTO GARZON Address: [address] [id number] [place] Name: HERNESTO GARZON Address: [address] [id number] [place] Name: HERNESTO GARZON R Address: [address] [id number] [place] Name: HERNESTO GARZON Address: [address] [id number] [place] Name: HERNESTO GARZON Address: [address] [id number] Name: HERNESTO GARZON Address: [address] [id number] FOR RECORDS PERTAINING TO PATIENTS WHO ARE OR HAVE BEEN ENROLLED IN A CHEMICAL DEPENDENCY/SUBSTANCEABUSE PROGRAM, SOME INFORMATION MAY BE OMITTED. This clinical summary was aggregated from multiple sources. Caution should be exercised in using it in the provision of clinical care. This summary normalizes information from multiple sources, and as a consequence, information in this document may materially change the coding, format and clinical context of patient data. In addition, data may be omitted in some cases. CLINICAL DECISIONS SHOULD BE BASED ON THE PRIMARY CLINICAL RECORDS. [facility] [employer] provides no warranty or guarantee of the accuracy or completeness of information in this document.
[2023-07-29 12:34] LABS: Bacteria 1+ /hpf (None Seen); Squamous Epithelial Cells - UA 0-5 SEEN /hpf (5-10)
[2023-07-29] MEDS: Ondansetron 4 MG/2 ML Vial IV (12:45)
[2023-07-29 12:55] LABS: Internal QC Validated? YES +Cl - CLEAR BKGD; Pregnancy, Serum, hCG Quali. NEGATIVE Negative
[2023-07-29 13:02] LABS: AST(SGOT) 565 U/L (15-37); Alanine Aminotransfer ALT/SGPT 1050 U/L (13-56); Albumin, Serum 3.5 g/dL (3.2-5.0); Alkaline Phosphatase 153 U/L (45-117); Anion Gap 7 (5-15); BUN 10 mg/dL (7-18); BUN/Creat Ratio 13.4 RATIO (10-20); Bilirubin, Direct 4.02 mg/dL (0.00-0.30); Chloride 107 mmol/L (98-107); Creatinine, Serum 0.75 mg/dL (0.55-1.02); EST Glomerular Filtration Rate 94 mL/min (>60); Est Glom Filt Rate - Afr Amer 113 mL/min (>60); Estimated Creatinine Clearance 117.67 ml/min; Glucose 87 mg/dL (74-106); Lipase 17 U/L (13-75); Potassium 3.7 mmol/L (3.5-5.1); Protein, Total 7.5 g/dL (6.4-8.2); Sodium Level 137 mmol/L (136-145)
--- NOTE | 2023-07-29 14:35 | NURSING ---
CALLED [facility] TO REACH DR SHABNAM SHEPHERD,
[2023-07-29 14:43] VITALS: BP 116/73; PULSE 75; RESP 16; O2SAT 98
== END 2023-07-29 17:15 | disposition home or self-care (01) ==
PROVIDERS: Emergency Provider Emergency Medicine; PCP Family Medicine; Visit Provider Emergency Medicine
DX: R79.89 Other specified abnormal findings of blood chemistry (principal); Z90.49 Acquired absence of other specified parts of digestive tract
CPT/HCPCS: 74177; 80048; 80076; 81001; 83690; 84703; 85025; 87631; 96361; 96374; 99283; J7030; Q9967; J2405

== ENCOUNTER 2024-02-06 15:47 | Emergency (ER) | payer MEDICAID, SELFPAY ==
[2024-02-06 15:48] VITALS: BP 147/97; PULSE 104; RESP 18; TEMP 36.9; O2SAT 97; BMI 29.6
[2024-02-06 17:48] VITALS: BP 127/90; PULSE 84; RESP 16; O2SAT 99
--- NOTE | 2024-02-06 17:50 | EDS_ITS ---
HPI <GARDENIA Rendon - Last Filed: 02/06/24 22:00> History of Present Illness Chief Complaint: Abn Labs Narrative Narrative: Patient is a 38-year-old female with history of elevated liver enzymes in late 2022, early 2023. Patient states that she had multiple tests, there is no evidence of any cancer in her upper abdomen. Patient has history of cholecystectomy, hernia surgery. Patient had laboratory values today done at [facility]. Patient states that she got a call from the nurse that the labs were abnormal and is here for evaluation. Patient states have some pain in the right lower quadrant, slight abdominal bloating. Denies any fever or chills. Pay states over the last week, she does have some itching. Here for examination patient she does have history of alcohol abuse however has been sober since 2019. PFSH <GARDENIA Rendon - Last Filed: 02/06/24 22:00> [facility] Home Medications ?Medication ?Instructions ?Recorded ?Last Taken ?Type hydroxyzine pamoate 25 mg capsule 25 mg PO TID PRN itching #20 caps 07/29/23 Unknown Rx (Vistaril) ondansetron 4 mg disintegrating 4 mg PO Q8H PRN PRN Nausea #10 tabs 07/29/23 Unknown Rx tablet lorazepam 0.5 mg tablet (Ativan) 0.5 mg PO DAILY 02/06/24 Unknown History Allergy/AdvReac Type Severity Reaction Status Date / Time No Known Allergies Allergy Verified 02/06/24 15:49 Family History Other Diabetes Surgical History History of cholecystectomy History of hernia surgery Hx of endoscopy Social History Smoking Status: Light Smoker (<10/day) ROS <GARDENIA Rendon - Last Filed: 02/06/24 22:00> ROS ED ROS Narrative Constitutional: Negative for fever, chills, weight loss, weakness Eyes: Negative for vision loss, vision change, double vision ENT: Negative for any sore throat, ear pain, congestion Cardiovascular: Negative for any chest pain, tightness, palpitations Respiratory: Negative for any cough, sputum production, hemoptysis, dyspnea, dyspnea on exertion, orthopnea Gastrointestinal: Negative for any vomiting, diarrhea, constipation, blood in stool, blood in vomit. Positive for abdominal pain, nausea : Negative for any urinary frequency, dysuria, retention, blood in urine Muscle skeletal: Negative for any neck pain, back pain Neurological: Negative for any headache, syncope, dizziness Skin: Negative for any rashes, abrasions, lacerations. Positive for full body itching Psychiatric: Negative for any depression, anxiety, stress, suicidal ideation, homicidal ideation Hematologic: Negative for any excessive bruising, easy bleeding EXAM <Benjamin Hernandez, AMBER-C - Last Filed: 02/06/24 22:00> Physical Exam Narrative Exam Narrative: Vital signs reviewed. HEET: Head normocephalic atraumatic, TMs clear bilaterally. Posterior pharynx is clear, moist mucous membranes. Nares clear bilaterally. Neck: Supple with no lymphadenopathy or tenderness. No signs of meningismus. Cardiac: Regular rate and rhythm no murmurs gallops or rubs, equal peripheral pulses bilaterally. Respiratory: Lungs clear to auscultation bilaterally. No chest tenderness. Abdomen: Soft. No abdominal bruit or pulsatile masses. No hepatosplenomegaly. Patient's abdomen is slightly distended however soft. Pain is more towards the right lower quadrant. Minimal to no pain to the upper abdomen. Extremities: No peripheral edema, no signs of gross trauma or deformity. Active full range of motion of all extremities. Neuro: Cranial nerves II through XII intact, no focal neurological deficits. Skin: Clean dry and intact with no rash, purpura, petechiae, vesicles or pustules. Backs/flank: No CVA tenderness, no midline spinal tenderness, no deformity. Psych: Normal mood and affect. No SI, HI or acute psychosis. Const Vital Signs: 02/06/24 15:48 02/06/24 17:48 02/06/24 17:51 Temperature 98.4 F Temperature Source Oral Pulse Rate 104 H 84 Respiratory Rate 18 16 Respiratory Effort Normal Respiratory Pattern Normal Blood Pressure 147/97 H 127/90 H Blood Pressure Mean 113 102 Pulse Ox 97 99 Oxygen Delivery Method Room Air Room Air 02/06/24 19:00 02/06/24 21:00 02/06/24 23:50 Temperature Temperature Source Pulse Rate 90 80 83 Respiratory Rate 16 18 18 Respiratory Effort Respiratory Pattern Blood Pressure 122/81 H 140/89 H 127/88 H Blood Pressure Mean 94 106 101 Pulse Ox 96 99 98 Oxygen Delivery Method Room Air Room Air <Dr. Santos Figueredo MD - Last Filed: 02/07/24 00:14> Physical Exam Const Vital Signs: 02/06/24 15:48 02/06/24 17:48 02/06/24 17:51 Temperature 98.4 F Temperature Source Oral Pulse Rate 104 H 84 Respiratory Rate 18 16 Respiratory Effort Normal Respiratory Pattern Normal Blood Pressure 147/97 H 127/90 H Blood Pressure Mean 113 102 Pulse Ox 97 99 Oxygen Delivery Method Room Air Room Air 02/06/24 19:00 02/06/24 21:00 02/06/24 23:50 Temperature Temperature Source Pulse Rate 90 80 83 Respiratory Rate 16 18 18 Respiratory Effort Respiratory Pattern Blood Pressure 122/81 H 140/89 H 127/88 H Blood Pressure Mean 94 106 101 Pulse Ox 96 99 98 Oxygen Delivery Method Room Air Room Air MDM <GARDENIA Rendon - Last Filed: 02/06/24 22:00> [facility] Lab Data Labs: Laboratory Results - last 24 hr 02/06/24 02/06/24 16:50 18:30 WBC 6.9 RBC 4.41 Hgb 12.5 Hct 37.8 MCV 85.7 MCH 28.3 MCHC 33.1 RDW Std Deviation 40.8 RDW Coeff of Amando 13.1 Plt Count 166 MPV 13.7 H Immature Gran % (Auto) 0.600 Neut % (Auto) 57.8 Lymph % (Auto) 31.5 Ness % (Auto) 9.1 Eos % (Auto) 0.6 Baso % (Auto) 0.4 Absolute Neuts (auto) 4.0 Absolute Lymphs (auto) 2.18 Nucleated RBC % 0 Platelet Estimate ADEQUATE Plt Morphology Comment LARGE RBC Morphology N CHROM Anisocytosis RARE PT 11.6 L INR 0.9 Sodium 137 Potassium 3.6 Chloride 105 Carbon Dioxide 27.0 Anion Gap 5 BUN 12 Creatinine 0.88 Estim Creat Clear Calc 99.49 Est GFR (MDRD) Af Amer 94 Est GFR (MDRD) Non-Af 78 BUN/Creatinine Ratio 13.7 Glucose 94 Calcium 9.4 Total Bilirubin 3.30 H Direct Bilirubin 2.80 H AST 357 H ALT 696 H Alkaline Phosphatase 215 H Total Protein 7.8 Albumin 3.6 Globulin 4.2 Lipase 25 Urine Color Yellow Urine Clarity Clear Urine pH 6.0 Ur Specific Silt 1.015 Urine Protein Negative Urine Glucose (UA) Normal Urine Ketones Negative Urine Occult Blood Negative Urine Nitrite Negative Urine Bilirubin 1 H Urine Urobilinogen 4 H Ur Leukocyte Esterase 25 H Urine RBC 0 SEEN Urine WBC 0-5 SEEN Ur Squamous Epith Cells 0-5 SEEN Urine Bacteria 3+ Urine Mucus 0 SEEN Urine Test Negative Radiography Diagnostic Testing: Clinical Impression(s) from Imaging Studies Abdomen/Pelvis CT 02/06/24 18:15 IMPRESSION: Stable cystic mass of the pancreatic head. Moderately abundant stool. No obstruction. Electronically Signed: Santos Silver MD at 21:34 EDT , Treatment and Re-Evaluation :: Differential diagnosis includes however is not limited to: Transaminitis, hepatitis, pancreatic cancer, choledocholithiasis, hyperbilirubinemia Patient appears to be in no obvious respiratory distress, patient's vital signs are stable. Patient presents to the emergency department with complaints of full body itching, was told to go to the emergency department secondary to eleva courtney liver enzymes. Patient received CBC, BMP, liver panel, lipase, PT/INR, urinalysis. Patient received a CT scan of the abdomen pelvis with IV contrast. IV fluids, IV Zofran will be given. Patient's laboratory values show a normal CBC, patient's PT is 11.6 with INR 0.9, patient's chemistries did show some transaminitis, patient's AST was 357 with an ALT of 696, alkaline phosphatase was 215. Patient's direct bilirubin was 2.8 with a total bilirubin of 3.3. Patient was given IV fluids, IV Zofran and Reglan as well as oral Vistaril for itching. CT scan of the abdomen pelvis with IV contrast shows a stable cystic mass of the pancreatic head, moderately abundant stool. No obstruction. Secondary to these findings, we will reach out to [facility] which she is receiving her care. To discuss different plans of care. <Dr. Santos Figueredo MD - Last Filed: 02/07/24 00:14> [facility] MDM Narrative Medical decision making narrative: I have personally performed a face to face assessment of the patient and have reviewed the CHILO Note. I performed a substantive portion of the visit including all aspects of the following. My nielson findings include: History is jaundice, pruritis all over keeping her up at night interrupting her sleep, dark yellow urine for the past 2 weeks similar to what she had in July when she was diagnosed with elevated liver enzymes. She is been getting repeat labs ever since. She states in September they normalized, she had seen hepatology and had a lot of testing but has not gone back because they were in [place]. Today her bilirubin was higher and so she states her nurse practitioner told her to go to the local ER. She has been having off-and-on right mid abdominal pain for the past 6 or 7 months as well. It is not severe right now. She denies any fevers, chills, confusion. Exam is jaundice with some mild scleral icterus, well-appearing in no distress, conversive in full senses. Very mild right mid-upper abdominal tenderness it is lateral. There is no guarding or rebound. Not able to definitively feel the hepatic edge. Medical Decison Making liver enzymes obtained, the only ones we had to compare with were from July. She states that her total bilirubin was 3 when she was at a different hospital last week, they sent her home. She has an appointment with GI in 2 weeks, she already saw GI earlier in the year she states they did infectious hepatitis panel that was negative, and she has had a CT scan. We re peated that here, will evaluate the results and discuss with GI if available. Vital signs are normal. She used to drink a lot of alcohol but has not had any since 2019. Differential includes alcoholic cirrhosis, autoimmune hepatitis, not likely to be cholangitis given no fevers, chills, confusion, or leukocytosis; she is already had her gallbladder out; I do not have access to her infectious hepatitis panel right now. There were significant delays in obtaining CT results, over 3 hours. Reviewed imaging and the report which I agree with, it shows no significant changes compared with her CT in July, a cystic mass of the pancreatic head that is unchanged, 2.4 x 1.6 cm. We do not have GI on-call/available at this hospital tonight. I discussed with GI [facility], attempting to discuss with whoever was special education inclusion teacher for the GI clinic she has an appointment with. I was put in touch with the cnc laser operator on-call at [facility]. He was not able to review records, and agrees that it is unclear if she needs urgent admission or not. He would be happy to consult if we can get her there, agreeing that expediting her workup would be reasonable explanation for admission. However called the transfer center and they have no beds and they have many patients on a wait list that have been on the list for days. The patient does not want to wait. She was amenable to another hospital so we tried [facility]. They were able to accept her to the service of Dr. Barragan. Other additions or changes: [None] Lab Data Attestation: I reviewed the patient's lab results. Labs: Laboratory Results - last 24 hr 02/06/24 02/06/24 16:50 18:30 WBC 6.9 RBC 4.41 Hgb 12.5 Hct 37.8 MCV 85.7 MCH 28.3 MCHC 33.1 RDW Std Deviation 40.8 RDW Coeff of Amando 13.1 Plt Count 166 MPV 13.7 H Immature Gran % (Auto) 0.600 Neut % (Auto) 57.8 Lymph % (Auto) 31.5 Ness % (Auto) 9.1 Eos % (Auto) 0.6 Baso % (Auto) 0.4 Absolute Neuts (auto) 4.0 Absolute Lymphs (auto) 2.18 Nucleated RBC % 0 Platelet Estimate ADEQUATE Plt Morphology Comment LARGE RBC Morphology N CHROM Anisocytosis RARE PT 11.6 L INR 0.9 Sodium 137 Potassium 3.6 Chloride 105 Carbon Dioxide 27.0 Anion Gap 5 BUN 12 Creatinine 0.88 Estim Creat Clear Calc 99.49 Est GFR (MDRD) Af Amer 94 Est GFR (MDRD) Non-Af 78 BUN/Creatinine Ratio 13.7 Glucose 94 Calcium 9.4 Total Bilirubin 3.30 H Direct Bilirubin 2.80 H AST 357 H ALT 696 H Alkaline Phosphatase 215 H Total Protein 7.8 Albumin 3.6 Globulin 4.2 Lipase 25 Urine Color Yellow Urine Clarity Clear Urine pH 6.0 Ur Specific Silt 1.015 Urine Protein Negative Urine Glucose (UA) Normal Urine Ketones Negative Urine Occult Blood Negative Urine Nitrite Negative Urine Bilirubin 1 H Urine Urobilinogen 4 H Ur Leukocyte Esterase 25 H Urine RBC 0 SEEN Urine WBC 0-5 SEEN Ur Squamous Epith Cells 0-5 SEEN Urine Bacteria 3+ Urine Mucus 0 SEEN Urine Test Negative Radiography Diagnostic Testing: Clinical Impression(s) from Imaging Studies Abdomen/Pelvis CT 02/06/24 18:15 IMPRESSION: Stable cystic mass of the pancreatic head. Moderately abundant stool. No obstruction. Electronically Signed: Santos Silver MD at 21:34 EDT Reading Location ID and State: [facility] / [place] , Service support , Management Discussion w/another healthcare provider: [employer] (see MDM) Discharge Plan Triage Chief Complaint: Abn Labs ED Midlevel Provider: Benjamin Hernandez ED Provider: Santos Figueredo Dx/Rx/DC Orders Clinical Impression: Elevated liver enzymes, Acquired hyperbilirubinemia, Mass of head of pancreas Prescriptions: No Action hydroxyzine pamoate [Vistaril] 25 mg capsule 25 mg PO TID PRN (Reason: itching) Qty: 20 0RF ondansetron 4 mg tablet,disintegrating 4 mg PO Q8H PRN PRN (Reason: Nausea) Qty: 10 0RF lorazepam [Ativan] 0.5 mg tablet 0.5 mg PO DAILY Primary Care Provider: Doug Ingram Referrals: Doug Ingram MD [Primary Care Provider] - Print Language: Tuvaluan Disposition Disposition: Acute Care Hospital Discharge Location: [facility]
[2024-02-06 17:52] LABS: Mucous, Urine 0 SEEN /hpf (<or=2+); Red Blood Cells-Urine 0 SEEN /hpf (0-5)
[2024-02-06 17:59] LABS: Color, Urine Yellow (Yellow); Glucose, Dipstick Normal (Normal); Ketone-Dipstick Negative (Negative); Leukocyte Esterase-Dipstick 25 /ul (Negative); Nitrite-Dipstick Negative (Negative); Occult Blood-Urine Negative /ul (Negative); Protein-Dipstick Negative (Negative); Specific Gravity, Urine 1.015 (1.002-1.030); Urine Bilirubin Dipstick 1 mg/dL (Negative); Urine Clarity Clear (Clear); Urine Urobilinogen 4 mg/dl (Normal)
[2024-02-06 18:05] LABS: Bacteria 3+ /hpf (None Seen); Squamous Epithelial Cells - UA 0-5 SEEN /hpf (5-10); White Blood Cells 0-5 SEEN /hpf (0-5)
[2024-02-06 18:06] LABS: Internal QC Validated? YES +Cl - CLEAR BKGD; Pregnancy, Urine Negative Negative
--- NOTE | 2024-02-06 18:15 | CT_ITS ---
STUDY: CT ABDOMEN AND PELVIS WITH CONTRAST REASON FOR EXAM: Female, 38 years old. Abdominal pain RADIATION DOSAGE (If Supplied By Facility): CTDIvol = ( 10.11 ) mGy, DLP = ( 766.38 ) mGycm TECHNIQUE: Transaxial images were obtained from the dome of the diaphragm to the symphysis pubis without oral contrast. IV 75mL Isovue-300 was administered. Sagittal and coronal images were reconstructed. Individualized dose optimization techniques were used for this CT. COMPARISON: July 29, 2023 FINDINGS: The visualized lung bases are unremarkable. The visualized portions of the heart are within normal limits. Normal liver. The gallbladder is not seen consistent with cholecystectomy. Normal spleen. There is stable 2.4 x 1.6 cm cystic mass of the pancreatic head. Normal bilateral adrenal glands. Normal right kidney. Normal left kidney. Normal visualized stomach. Normal small intestine. Normal colon. There is moderately abundant stool. The appendix is visualized and appears normal. Normal abdominal aorta. Normal inferior vena cava. Normal retroperitoneum. Normal urinary bladder. Normal visualized uterus. There is no free fluid in the abdomen or pelvis. Normal abdominal wall. Normal osseous structures. CT/Abdomen/Pelvis W IV Cont ONLY IMPRESSION: Stable cystic mass of the pancreatic head. Moderately abundant stool. No obstruction. Electronically Signed: Santos Silver MD at 21:34 EDT ,
[2024-02-06] MEDS: Ondansetron 4 MG/2 ML Vial IV (18:37)
[2024-02-06] MEDS: 0.9% Normal Saline (1000mL) 1,000 ML 999 ML IV (18:37)
[2024-02-06] MEDS: hydrOXYzine PAM 25 MG Capsule 50 MG PO (18:38)
[2024-02-06 18:39] LABS: Absolute Lymphocyte Count 2.18 X10^3/uL (0.83-4.51); Basophil# 0.03 X10^3/uL; Basophil% 0.4 % (0-1); Eosinophil# 0.04 X10^3/uL; Eosinophils% 0.6 % (0-5); Hematocrit 37.8 % (37-47); Hemoglobin 12.5 g/dL (12.0-15.0); Lymphocyte # 2.18 X10^3/ul (0.83-4.51); Lymphocyte % 31.5 % (19-41); Mean Corp Hgb Conc 33.1 g/dL (32-36); Mean Corpuscular Hgb 28.3 pg (27.0-32.0); Mean Corpuscular Volume 85.7 fL (81-99); Mean Platelet Vol. 13.7 fl (6.2-12.0); Monocyte# 0.63 X10^3/uL; Monocyte% 9.1 % (0-10); NRBC Flagged by Analyzer 0 % (0-5); Neutrophil % 57.8 % (47-70); POSITIVE MORPHOLOGY YES; Platelet Count 166 K/mm3 (150-450); RBC Distribution Width CV 13.1 % (11.6-14.6); RBC Distribution Width SD 40.8 fl (35.1-43.9); Red Blood Count 4.41 M/mm3 (4.2-5.4); White Blood Count 6.9 K/mm3 (4.4-11.0)
[2024-02-06 18:53] LABS: International Normalized Ratio 0.9; Prothrombin Time (Protime)PT. 11.6 SECONDS (11.7-14.9)
[2024-02-06 18:56] LABS: AST(SGOT) 357 U/L (15-37); Alanine Aminotransfer ALT/SGPT 696 U/L (13-56); Albumin, Serum 3.6 g/dL (3.2-5.0); Alkaline Phosphatase 215 U/L (45-117); Anion Gap 5 (5-15); BUN 12 mg/dL (7-18); BUN/Creat Ratio 13.7 RATIO (10-20); Calcium,Total 9.4 mg/dL (8.5-10.1); Chloride 105 mmol/L (98-107); Creatinine, Serum 0.88 mg/dL (0.55-1.02); EST Glomerular Filtration Rate 78 mL/min (>60); Est Glom Filt Rate - Afr Amer 94 mL/min (>60); Estimated Creatinine Clearance 99.49 ml/min; Globulin 4.2 g/dL (2.2-4.2); Glucose 94 mg/dL (74-106); Lipase 25 U/L (13-75); Potassium 3.6 mmol/L (3.5-5.1); Protein, Total 7.8 g/dL (6.4-8.2); Sodium Level 137 mmol/L (136-145)
[2024-02-06 19:00] VITALS: BP 122/81; PULSE 90; RESP 16; O2SAT 96
[2024-02-06 19:09] LABS: Differential Indicated SCAN CRITERIA MET
[2024-02-06 19:12] LABS: Anisocytosis RARE; Platelet Estimate ADEQUATE (ADEQ); Platelet Morphology LARGE; Red Cell Morphology N CHROM NORMAL (NORM C&C)
[2024-02-06 21:00] VITALS: BP 140/89; PULSE 80; RESP 18; O2SAT 99
[2024-02-06] MEDS: Metoclopramide 10 MG/2 ML Vial 5 MG IV (22:16)
[2024-02-06 23:50] VITALS: BP 127/88; PULSE 83; RESP 18; O2SAT 98
[2024-02-07 01:00] VITALS: PULSE 80; RESP 18
== END 2024-02-07 01:49 | disposition home or self-care (01) ==
PROVIDERS: Nurse Practitioner; Emergency Provider Emergency Medicine; PCP Family Medicine; Visit Provider Emergency Medicine
DX: K86.89 Other specified diseases of pancreas (principal); R74.8 Abnormal levels of other serum enzymes; F17.200 Nicotine dependence, unspecified, uncomplicated; E80.7 Disorder of bilirubin metabolism, unspecified; Z90.49 Acquired absence of other specified parts of digestive tract; R17 Unspecified jaundice; R10.31 Right lower quadrant pain
CPT/HCPCS: 74177; 80048; 80076; 81001; 81025; 83690; 85025; 85610; 87086; 96361; 96374; 96375; 99282; Q9967; A4216; J2405

== ENCOUNTER 2024-04-28 11:31 | Emergency (ER) | payer MEDICAID, SELFPAY ==
[2024-04-28 11:31] VITALS: BP 106/63; PULSE 90; RESP 15; TEMP 36.7; O2SAT 98
--- NOTE | 2024-04-28 11:36 | EKG12_ITS ---
Test Reason : HEADACHE Blood Pressure : / mmHG Vent. Rate : 078 BPM Atrial Rate : 078 BPM P-R Int : 138 ms QRS Dur : 078 ms QT Int : 372 ms P-R-T Axes : 038 054 037 degrees QTc Int : 424 ms Normal sinus rhythm Normal ECG Confirmed by Mendez Navarro ([id number]), newspaper editor CAROLE CASTRO ([id number]) on 04/29/2024 9:34:51 AM Referred By: Confirmed By:Mendez Navarro
[2024-04-28 12:09] LABS: Absolute Lymphocyte Count 2.27 X10^3/uL (0.83-4.51); Absolute Neutrophil Count 5.5 X10^3/uL (2.0-7.7); Basophil# 0.02 X10^3/uL; Basophil% 0.2 % (0-1); Eosinophil# 0.07 X10^3/uL; Eosinophils% 0.8 % (0-5); Hematocrit 38.5 % (37-47); Hemoglobin 12.3 g/dL (12.0-15.0); Lymphocyte # 2.27 X10^3/ul (0.83-4.51); Lymphocyte % 26.2 % (19-41); Mean Corp Hgb Conc 31.9 g/dL (32-36); Mean Corpuscular Hgb 27.8 pg (27.0-32.0); Mean Corpuscular Volume 87.1 fL (81-99); Mean Platelet Vol. 13.6 fl (6.2-12.0); Monocyte% 9.2 % (0-10); NRBC Flagged by Analyzer 0 % (0-5); Neutrophil # 5.48 X10^3/uL (2.7-7.7); Neutrophil % 63.1 % (47-70); Platelet Count 216 K/mm3 (150-450); RBC Distribution Width CV 12.9 % (11.6-14.6); RBC Distribution Width SD 40.9 fl (35.1-43.9); Red Blood Count 4.42 M/mm3 (4.2-5.4); White Blood Count 8.7 K/mm3 (4.4-11.0)
[2024-04-28 12:13] LABS: Anion Gap 5 (5-15); BUN 15 mg/dL (7-18); BUN/Creat Ratio 18.9 RATIO (10-20); Calcium,Total 9.5 mg/dL (8.5-10.1); Chloride 106 mmol/L (98-107); Creatinine, Serum 0.79 mg/dL (0.55-1.02); EST Glomerular Filtration Rate 87 mL/min (>60); Est Glom Filt Rate - Afr Amer 105 mL/min (>60); Estimated Creatinine Clearance 111.53 ml/min; Glucose 113 mg/dL (74-106); Potassium 4.2 mmol/L (3.5-5.1); Sodium Level 133 mmol/L (136-145)
[2024-04-28 12:14] LABS: International Normalized Ratio 0.9; Partial Thromboplast Time 22.3 Seconds (24.1-36.2); Prothrombin Time (Protime)PT. 12.3 SECONDS (11.7-14.9)
--- NOTE | 2024-04-28 12:45 | RAD_ITS ---
STUDY: X-RAY CHEST REASON FOR EXAM: Female, 38 years old. Stroke TECHNIQUE: Single AP portable view of the chest. COMPARISON: None. FINDINGS: The lungs are clear and expanded. There is no demonstrated pleural abnormality. Normal size heart. Normal mediastinum and edi. Normal visualized pulmonary arteries. Normal visualized aortic arch and descending thoracic aorta. Normal visualized thoracic spine. Normal visualized ribs, clavicles, and shoulders. There is no demonstrated abnormality of the visualized soft tissue structures of the upper abdomen. RAD/Chest 1 View (Portable) IMPRESSION: Normal x-ray examination of the chest. Electronically Signed: Rustam Blanchard MD at 12:58 EDT ,
--- NOTE | 2024-04-28 13:19 | ED.RN ---
NO OLD EKGS
--- NOTE | 2024-04-28 14:15 | EDS_ITS ---
HPI History of Present Illness Chief Complaint: Headache Narrative Narrative: 38-year-old female presents with headache that she has had since this morning. She relates history that she had a cough for 2 weeks and thought that maybe she was coming down with something. She does have a history of migraine headaches, but states that she has a migraine that started this morning associated with nausea, photophobia, and phonophobia. In the front of her head and radiates backwards. She denies any fevers or chills. No neck pain. She went to urgent care who sent her to the emergency department because it was felt that oral medications would not be effective in treating her migraine headache. She states that nothing makes her headache better or worse. She would like the nausea to stop. She currently rates it a 10 out of 10. [facility] Home Medications ?Medication ?Instructions ?Recorded ?Last Taken ?Type hydroxyzine pamoate 25 mg capsule 25 mg PO TID PRN itching #20 caps 07/29/23 U nknown Rx (Vistaril) ondansetron 4 mg disintegrating 4 mg PO Q8H PRN PRN Nausea #10 tabs 07/29/23 Unknown Rx tablet lorazepam 0.5 mg tablet (Ativan) 0.5 mg PO DAILY 02/06/24 Unknown History diphenhydramine HCl 25 mg capsule 25 mg PO TID PRN itching #60 caps 02/07/24 Unknown Rx (Allergy (diphenhydramine)) lorazepam 1 mg tablet (Ativan) 1 mg PO TID PRN sedation 5 days 02/07/24 Unknown Rx #15 tabs ondansetron 4 mg disintegrating 4 mg PO Q8H PRN PRN Nausea #10 tabs 04/28/24 Unknown Rx tablet Allergy/AdvReac Type Severity Reaction Status Date / Time No Known Allergies Allergy Verified 04/28/24 11:31 Family History Other Diabetes Surgical History History of hernia surgery Hx of endoscopy History of cholecystectomy Social History Smoking Status: Light Smoker (<10/day) ROS ROS ED ROS Narrative Constitutional: No fever, no chills. HEENT: No sore throat. No neck pain. No loss of vision. No rhinorrhea. Cardiovascular: No chest pain. No palpitations. No pedal edema. Respiratory: 2 weeks of cough, no shortness of breath. Abdominal: No abdominal pain. Positive nausea. No vomiting. Genitourinary: No dysuria. No hematuria. Musculoskeletal: No myalgias. No arthralgias. Neurologic: Positive frontal headaches starting today. No dizziness. No lightheadedness. Skin: No rash. No change in color. Psychiatric: No depression. No anxiety. EXAM Physical Exam Narrative Exam Narrative: Afebrile. Vital signs noted. HEENT: Normocephalic. Atraumatic. PERRL, EOMI. Neck soft and supple. No point tenderness or step off. Cardiovascular: Regular rate and rhythm. No murmurs, rubs, or gallops appreciated. Respiratory: No tachypnea. Lungs clear to auscultation bilaterally. Gastrointestinal: Abdomen soft, nontender, with normoactive bowel sounds. No rebound or guarding. Neurological: Awake. Alert. Nonfocal, nonlateralizing. Oriented. Skin: No rash. Normal color. No pallor. Musculoskeletal: No pedal edema. Full range of motion extremities. Const Vital Signs: 04/28/24 11:31 04/28/24 14:56 04/28/24 14:56 Temperature 98.1 F 98.1 F Temperature Source Oral Oral Pulse Rate 90 71 Respiratory Rate 15 19 H Blood Pressure 106/63 121/91 H Blood Pressure Mean 77 101 Pulse Ox 98 98 98 Oxygen Delivery Method Room Air Room Air Room Air [facility] [place] Narrative Medical decision making narrative: Differential diagnosis includes but not limited to URI, migraine headache, I have a low suspicion for intracranial hemorrhage and do not feel that CT imaging is indicated based on her normal neurological examination. Laboratory work was ordered per nursing protocol. I reviewed her laboratory work and she has normal white count of 8.7, hemoglobin 12.3, hematocrit 38.5, platelet count 216. Coagulation studies are negative sodium slightly low 133 which I think is nonspecific but she has normal BUN of 15 and a creatinine 0.79. With the IV fluid shortage, I do not feel that IV fluids are indicated. Glucose slightly elevated at 113 with normal anion gap 5. I will add a serum test. Will treat her migraine with Compazine and Benadryl intravenously. However, RN reports difficulty in obtaining saline lock. She was given intramuscular medications instead. Serum test is negative. Patient was reexamined at approximately 1530, and is motivated for discharge. She feels improved and states that her headache is more tolerable, but is still having nausea. She will be given a Zofran here, and a prescription written for 10 ODT's. She states that she has been taking ibuprofen so she may have more of a gastritis. At this point in time, I feel she can be discharged to follow-up with her primary care provider. Return instructions to the emergency department were reviewed. Disposition is discharged home in stable condition. History & Record Review Discussion w/independent historian: Patient Lab Data Attestation: I reviewed the patient's lab results. Labs: Laboratory Results - last 24 hr 04/28/24 04/28/24 11:51 14:40 WBC 8.7 RBC 4.42 Hgb 12.3 Hct 38.5 MCV 87.1 MCH 27.8 MCHC 31.9 L RDW Std Deviation 40.9 RDW Coeff of Amando 12.9 Plt Count 216 MPV 13.6 H Immature Gran % (Auto) 0.500 Neut % (Auto) 63.1 Lymph % (Auto) 26.2 Turner % (Auto) 9.2 Eos % (Auto) 0.8 Baso % (Auto) 0.2 Absolute Neuts (auto) 5.5 Absolute Lymphs (auto) 2.27 Nucleated RBC % 0 PT 12.3 INR 0.9 APTT 22.3 L Sodium 133 L Potassium 4.2 Chloride 106 Carbon Dioxide 23.0 Anion Gap 5 BUN 15 Creatinine 0.79 Estim Creat Clear Calc 111.53 Est GFR (MDRD) Af Amer 105 Est GFR (MDRD) Non-Af 87 BUN/Creatinine Ratio 18.9 Glucose 113 H Calcium 9.5 Serum , Qual NEGATIVE Radiography Diagnostic Testing: Clinical Impression(s) from Imaging Studies Chest X-Ray 04/28/24 12:45 IMPRESSION: Normal x-ray examination of the chest. Electronically Signed: Rustam Blanchard MD at 12:58 EDT , Discharge Plan Triage Chief Complaint: Headache ED Provider: Eran Chaves Dx/Rx/DC Orders Clinical Impression: Headache, Nausea Instructions: ED Headache Unspecified Prescriptions: New ondansetron 4 mg tablet,disintegrating 4 mg PO Q8H PRN PRN (Reason: Nausea) Qty: 10 0RF No Action hydroxyzine pamoate [Vistaril] 25 mg capsule 25 mg PO TID PRN (Reason: itching) Qty: 20 0RF ondansetron 4 mg tablet,disintegrating 4 mg PO Q8H PRN PRN (Reason: Nausea) Qty: 10 0RF lorazepam [Ativan] 0.5 mg tablet 0.5 mg PO DAILY diphenhydramine HCl [Allergy (diphenhydramine)] 25 mg capsule 25 mg PO TID PRN (Reason: itching) Qty: 60 0RF lorazepam [Ativan] 1 mg tablet 1 mg PO TID PRN (Reason: sedation) 5 Days Qty: 15 0RF Primary Care Provider: Doug Ingram Referrals: Doug Ingram MD [Primary Care Provider] - 3-5 Days if not improving Activity Restrictions/Additional Instructions: Follow-up with your primary care provider. Return with new or worsening symptoms. Print Language: Taiwanese Disposition Disposition: Home, Self Care
[2024-04-28] MEDS: proCHLORPERazine 10 MG/2 ML Vial IM (14:54)
[2024-04-28 14:56] VITALS: BP 121/91; PULSE 71; RESP 19; TEMP 36.7; O2SAT 98
[2024-04-28] MEDS: DiphenhydrAMINE 50 MG/ML Syringe 25 MG IM (14:56)
[2024-04-28 15:20] LABS: Internal QC Validated? YES +Cl - CLEAR BKGD; Pregnancy, Serum, hCG Quali. NEGATIVE Negative
[2024-04-28] MEDS: Ondansetron ODT 4 MG Tablet PO (15:42)
[2024-04-28 15:45] VITALS: BP 100/80; PULSE 74; RESP 15; TEMP 36.6; O2SAT 95
== END 2024-04-28 15:57 | disposition home or self-care (01) ==
PROVIDERS: Emergency Provider Emergency Medicine; PCP Family Medicine; Visit Provider Emergency Medicine
DX: R51.9 Headache, unspecified (principal); R11.0 Nausea; R05.9 Cough, unspecified; R73.09 Other abnormal glucose; Z79.899 Other long term (current) drug therapy; F17.200 Nicotine dependence, unspecified, uncomplicated
CPT/HCPCS: 71045; 80048; 84703; 85025; 85610; 85730; 93005; 96372; 99283; A4216